=== PATIENT | male | born 1945 | race Caucasian/White ===

== ENCOUNTER 2019-12-24 06:05 | Outpatient (REF) | payer MEDICARE, OTHER, SELFPAY ==
[2019-12-24 11:14] LABS: MANUAL DIFF FLAG NO
[2019-12-24 11:25] LABS: Basophils Percent Auto 0.4 % (0-2); Eosinophils Absolute Auto 0.1 X10*3/uL (0.0-0.4); Eosinophils Percent Auto 2.3 % (0-4); Hemoglobin 12.4 g/dl (14.0-18.0); Imm Gran Abs Auto 0.01 X10*3/uL (0.00-0.03); Imm Gran Pct Auto 0.2 % (0.0-0.4); Lymphocytes Absolute Auto 2.1 X10*3/uL (1.2-4.9); Lymphocytes Percent Auto 44.3 % (20-40); Mean Corpuscular HGB Conc 32.6 g/dl (31.0-36.0); Mean Corpuscular Hemoglobin 31.8 pg (27.0-33.0); Mean Corpuscular Volume 97.4 fL (80-98); Mean Platelet Volume 11.3 fL (9.4-12.4); Monocytes Absolute Auto 0.4 X10*3/uL (0.1-1.2); Monocytes Percent Auto 7.4 % (2-11); Neutrophils Absolute Auto 2.1 X10*3/uL (2.0-8.3); Neutrophils Percent Auto 45.4 % (45-73); Platelet Count 236 X10*3/uL (160-400); Red Cell Distribution Width 12.2 % (11.0-16.0); White Blood Count 4.7 X10*3/uL (4.8-10.8)
[2019-12-24 11:37] LABS: Estimated Average Glucose 108 mg/dL; Hemoglobin A1c % 5.4 %
[2019-12-24 11:56] LABS: Anion Gap 11 (12-20); Blood Urea Nitrogen 16 mg/dL (9-16); Calcium 8.8 mg/dL (8.4-10.2); Carbon Dioxide 28 mmol/L (22-29); Chloride 105 mmol/L (96-108); Cholesterol 129 mg/dL; Estimated Glomerular Filt Rate > 60; Glucose Fasting 95 mg/dL (60-99); HDL Cholesterol 40 mg/dL; LDL Cholesterol Calculated 80 mg/dl; Potassium 4.3 mmol/l (3.3-5.1); Sodium 140 mmol/L (135-145); Triglycerides 47 mg/dL
[2019-12-24 12:18] LABS: TSH reflex Free T4 3.58 mIU/mL (0.32-4.0)
== END 2019-12-24 06:06 | disposition home or self-care (01) ==
LOC: HO.HMGCLDS 06:05
PROVIDERS: PCP Internal Medicine; Visit Provider Internal Medicine
DX: E78.9 Disorder of lipoprotein metabolism, unspecified (principal); R73.01 Impaired fasting glucose; G20 Parkinson's disease; I10 Essential (primary) hypertension; K21.9 Gastro-esophageal reflux disease without esophagitis; K59.01 Slow transit constipation; D64.9 Anemia, unspecified
CPT/HCPCS: 36415; 80048; 80061; 83036; 84443; 85025

== ENCOUNTER 2020-01-13 08:15 | Outpatient (REF) | payer MEDICARE, OTHER, SELFPAY ==
--- NOTE | 2020-01-13 08:24 | CT_ITS ---
EXAMINATION: CT SOFT TISSUE NECK WITH CONTRAST CLINICAL INFORMATION: Localized swelling, mass/lump on the neck. COMPARISON: None available. TECHNIQUE: Multidetector helical imaging was performed in the axial plane following the administration of 60 mL of Omnipaque 350 intravenous contrast. Multiple axial reformats and coronal/sagittal reconstructions were created the technologist workstation for review. This CT examination was performed using dose optimization techniques as appropriate, variously including the following: *Automated exposure control. *Adjustment of mA and/or kV according to patient size (this includes techniques or standardized protocols for targeted exams where dose is matched to indication/reason for exam; i.e. extremities or head). *Use of iterative reconstruction technique. DLP: 406 mGy-cm FINDINGS: No significant cutaneous thickening or subcutaneous inflammation. No discrete fluid collection within the deep tissues of the neck. No demonstrated abnormal mass lesion in the region demarcated by the cutaneous marker along the right aspect of the neck. There is slightly asymmetric adipose tissue subjacent to this marker without discrete margins to definitively suggest an underlying lipoma. The premaxillary, retromaxillary, pterygopalatine fossa, orbital apical, parapharyngeal, and prelaryngeal adipose tissue is maintained. There is a 1.1 cm hypoattenuating nodule in the right thyroid lobe. Otherwise, normal appearance of the parotid, submandibular, and thyroid glands. Scattered subcentimeter lymph nodes bilaterally, none of which are pathologically enlarged or abnormally enhancing. Normal mucosal contours of the pharynx and larynx without abnormal enhancement. Normal appearance of the hyoid bone, thyroid cartilage, or cartilaginous trachea. The airways remains widely patent. No radiopaque foreign bodies. The atlantooccipital and atlantoaxial articulations remain well aligned. There is anatomic alignment of the vertebral bodies and posterior elements. No evidence of acute fracture or subluxation of the cervical spine. The vertebral body heights are maintained. Moderate multilevel degenerative spondyloarthropathy of the cervical spine. There is advanced degenerative disc disease from C3-C7. Multilevel facet and uncovertebral joint arthropathy leads osseous encroachment on the neural foramina from C3-C7. No evidence of epidural collection. There is no prevertebral soft tissue swelling. Normal opacification of the cervical arterial and venous structures. The visualized portion of the skull base is without significant abnormalities. Moderate rightward nasal septal deviation. Mild to moderate mucosal thickening of the paranasal sinuses. The mastoid air cells and middle ear cavities are clear. No demonstrated significant periapical odontogenic disease. CT Upper Chest: The visualized lung apices and upper mediastinum are within normal limits. CT/CT soft tissue neck w con IMPRESSION: No demonstrated abnormal mass lesion in the region demarcated by cutaneous marker along the right side of neck. Slight asymmetric prominence of the subcutaneous adipose tissue subjacent to this marker. Nonspecific 1.1 cm hypoattenuating nodule in the right thyroid lobe. No cervical lymphadenopathy. No additional abnormal mass lesion, collection, or abnormal enhancement within the soft tissues of the neck.
[2020-01-13] MEDS: iohexoL 350 MG/ML 100 ML INFUS..BTL 60 ML IV (09:05)
== END 2020-01-13 08:16 | disposition home or self-care (01) ==
LOC: HO.CT 08:15
PROVIDERS: PCP Internal Medicine; Visit Provider Surgery
DX: R22.1 Localized swelling, mass and lump, neck (principal)
CPT/HCPCS: 70491; Q9967

== ENCOUNTER → 2020-01-20 09:05 | Outpatient (BNVA) | payer MEDICARE, OTHER, SELFPAY | PROVIDERS: PCP Internal Medicine; Referring Provider Internal Medicine; Visit Provider Surgery | DX: R22.0 Localized swelling, mass and lump, head (principal) | CPT/HCPCS: 99212 ==

== ENCOUNTER 2020-03-23 09:38 | Outpatient (REF) | payer MEDICARE, OTHER, SELFPAY ==
[2020-03-23 11:05] LABS: Hematocrit 38.9 % (42-52); Hemoglobin 12.8 g/dl (14.0-18.0)
[2020-03-23 11:29] LABS: Alanine Aminotransferase 9 U/L (0-40); Albumin Level 4.2 g/dL (3.5-5.0); Alkaline Phosphatase 69 U/L (39-117); Anion Gap 14 (12-20); Aspartate Amino Transferase 20 U/L (5-37); Bilirubin Direct 0.2 mg/dL (0.0-0.5); Bilirubin Total 0.6 mg/dL (0.0-1.0); Blood Urea Nitrogen 20 mg/dL (9-16); Carbon Dioxide 24 mmol/L (22-29); Chloride 106 mmol/L (96-108); Estimated Glomerular Filt Rate > 60; Glucose Random 89 mg/dL (60-115); Potassium 4.3 mmol/l (3.3-5.1); Sodium 140 mmol/L (135-145); Total Protein 6.7 g/dL (6.5-8.0)
== END 2020-03-23 09:39 | disposition home or self-care (01) ==
LOC: HO.HMGCLDS 09:38
PROVIDERS: PCP Internal Medicine; Visit Provider Internal Medicine
DX: R73.01 Impaired fasting glucose (principal); D64.9 Anemia, unspecified; E78.9 Disorder of lipoprotein metabolism, unspecified; I10 Essential (primary) hypertension
CPT/HCPCS: 36415; 80048; 80076; 85014; 85018

== ENCOUNTER 2020-07-20 09:51 | Outpatient (REF) | payer MEDICARE, OTHER, SELFPAY ==
[2020-07-20 11:19] LABS: MANUAL DIFF FLAG NO
[2020-07-20 11:34] LABS: Basophils Percent Auto 0.5 % (0-2); Eosinophils Absolute Auto 0.1 X10*3/uL (0.0-0.4); Eosinophils Percent Auto 1.3 % (0-4); Hematocrit 38.6 % (42-52); Hemoglobin 12.8 g/dl (14.0-18.0); Imm Gran Abs Auto 0.01 X10*3/uL (0.00-0.03); Imm Gran Pct Auto 0.2 % (0.0-0.4); Lymphocytes Absolute Auto 2.4 X10*3/uL (1.2-4.9); Lymphocytes Percent Auto 39.6 % (20-40); Mean Corpuscular HGB Conc 33.2 g/dl (31.0-36.0); Mean Corpuscular Hemoglobin 31.6 pg (27.0-33.0); Mean Corpuscular Volume 95.3 fL (80-98); Mean Platelet Volume 11.9 fL (9.4-12.4); Monocytes Absolute Auto 0.4 X10*3/uL (0.1-1.2); Monocytes Percent Auto 6.6 % (2-11); Neutrophils Absolute Auto 3.2 X10*3/uL (2.0-8.3); Neutrophils Percent Auto 51.8 % (45-73); Platelet Count 195 X10*3/uL (160-400); Red Blood Count 4.05 X10*6/uL (4.60-5.80); Red Cell Distribution Width 12.4 % (11.0-16.0); White Blood Count 6.1 X10*3/uL (4.8-10.8)
[2020-07-20 11:54] LABS: Alanine Aminotransferase 14 U/L (0-40); Albumin Level 4.3 g/dL (3.5-5.0); Alkaline Phosphatase 77 U/L (39-117); Anion Gap 12 (12-20); Aspartate Amino Transferase 20 U/L (5-37); Bilirubin Total 0.4 mg/dL (0.0-1.0); Blood Urea Nitrogen 18 mg/dL (9-16); Calcium 9.6 mg/dL (8.4-10.2); Carbon Dioxide 24 mmol/L (22-29); Chloride 107 mmol/L (96-108); Estimated Glomerular Filt Rate > 60; Glucose Random 92 mg/dL (60-115); Potassium 4.3 mmol/L (3.3-5.1); Sodium 139 mmol/L (135-145)
== END 2020-07-20 09:52 | disposition home or self-care (01) ==
LOC: HO.HMGCLDS 09:51
PROVIDERS: PCP Internal Medicine; Visit Provider Internal Medicine
DX: D64.9 Anemia, unspecified (principal); E78.9 Disorder of lipoprotein metabolism, unspecified; I10 Essential (primary) hypertension
CPT/HCPCS: 36415; 80053; 85025

== ENCOUNTER 2021-04-10 06:41 | Outpatient (REF) | payer MEDICARE, OTHER, SELFPAY ==
[2021-04-10 11:45] LABS: MANUAL DIFF FLAG NO
[2021-04-10 11:54] LABS: Basophils Percent Auto 0.3 % (0-2); Eosinophils Absolute Auto 0.1 X10*3/uL (0.0-0.4); Eosinophils Percent Auto 1.6 % (0-4); Hematocrit 39.5 % (42.0-52.0); Hemoglobin 12.9 g/dl (14.0-18.0); Imm Gran Abs Auto 0.02 X10*3/uL (0.00-0.03); Imm Gran Pct Auto 0.3 % (0.0-0.4); Lymphocytes Absolute Auto 2.6 X10*3/uL (1.2-4.9); Lymphocytes Percent Auto 41.9 % (20-40); Mean Corpuscular HGB Conc 32.7 g/dl (31.0-36.0); Mean Corpuscular Hemoglobin 31.4 pg (27.0-33.0); Mean Corpuscular Volume 96.1 fL (80.0-98.0); Mean Platelet Volume 11.7 fL (9.4-12.4); Monocytes Absolute Auto 0.4 X10*3/uL (0.1-1.2); Monocytes Percent Auto 6.7 % (2-11); Neutrophils Percent Auto 49.2 % (45-73); Platelet Count 199 X10*3/uL (160-400); Red Blood Count 4.11 X10*6/uL (4.60-5.80); Red Cell Distribution Width 12.6 % (11.0-16.0); White Blood Count 6.1 X10*3/uL (4.8-10.8)
[2021-04-10 11:56] LABS: Estimated Average Glucose 114 mg/dL; Hemoglobin A1c % 5.6 %
[2021-04-10 12:12] LABS: Alanine Aminotransferase 13 U/L (0-40); Albumin Level 4.1 g/dL (3.5-5.0); Alkaline Phosphatase 67 U/L (39-117); Anion Gap 10 (12-20); Aspartate Amino Transferase 21 U/L (5-37); Bilirubin Total 0.5 mg/dL (0.0-1.0); Blood Urea Nitrogen 17 mg/dL (9-16); Calcium 9.5 mg/dL (8.4-10.2); Carbon Dioxide 29 mmol/L (22-29); Chloride 106 mmol/L (96-108); Estimated Glomerular Filt Rate > 60; Glucose Fasting 120 mg/dL (60-99); Potassium 4.2 mmol/L (3.3-5.1); Sodium 141 mmol/L (135-145); Total Protein 6.7 g/dL (6.5-8.0)
== END 2021-04-10 06:42 | disposition home or self-care (01) ==
LOC: HO.HMGCLDS 06:41
PROVIDERS: Visit Provider Internal Medicine
DX: E78.9 Disorder of lipoprotein metabolism, unspecified (principal); R73.01 Impaired fasting glucose; I10 Essential (primary) hypertension
CPT/HCPCS: 36415; 80053; 83036; 85025

== ENCOUNTER → 2021-05-15 15:24 | Outpatient (BNVA) | payer MEDICARE, OTHER, SELFPAY | PROVIDERS: PCP Internal Medicine; Visit Provider Psychiatry & Neurology Neurology | DX: G20 Parkinson's disease (principal); F22 Delusional disorders | CPT/HCPCS: 99212 ==

== ENCOUNTER → 2021-06-27 07:49 | Outpatient (BNVA) | payer MEDICARE, OTHER, SELFPAY | PROVIDERS: PCP Internal Medicine; Visit Provider Psychiatry & Neurology Neurology | DX: G20 Parkinson's disease (principal); F22 Delusional disorders | CPT/HCPCS: 99212 ==

== ENCOUNTER → 2021-10-10 08:49 | Outpatient (BNVA) | payer MEDICARE, OTHER, SELFPAY | PROVIDERS: PCP Internal Medicine; Visit Provider Psychiatry & Neurology Neurology | DX: G20 Parkinson's disease (principal); F22 Delusional disorders; Z79.899 Other long term (current) drug therapy | CPT/HCPCS: 99212 ==

== ENCOUNTER → 2021-11-10 13:49 | Outpatient (BNVA) | payer MEDICARE, OTHER, SELFPAY | PROVIDERS: PCP Internal Medicine; Visit Provider Urology | DX: N52.9 Male erectile dysfunction, unspecified (principal); G20 Parkinson's disease | CPT/HCPCS: 99202 ==

== ENCOUNTER 2021-11-17 06:10 | Outpatient (REF) | payer MEDICARE, OTHER, SELFPAY ==
[2021-11-17 11:27] LABS: Estimated Average Glucose 108 mg/dL; Hemoglobin A1c % 5.4 %
[2021-11-17 11:56] LABS: Alanine Aminotransferase 15 U/L (0-40); Albumin Level 4.3 g/dL (3.5-5.0); Alkaline Phosphatase 73 U/L (39-117); Anion Gap 14 (12-20); Aspartate Amino Transferase 19 U/L (5-37); Bilirubin Total 0.5 mg/dL (0.0-1.0); Blood Urea Nitrogen 14 mg/dL (9-16); Calcium 9.6 mg/dL (8.4-10.2); Carbon Dioxide 27 mmol/L (22-29); Chloride 105 mmol/L (96-108); Estimated Glomerular Filt Rate > 60; Glucose Random 100 mg/dL (60-115); Potassium 4.5 mmol/L (3.3-5.1); Sodium 141 mmol/L (135-145); Total Protein 6.7 g/dL (6.5-8.0)
== END 2021-11-17 06:11 | disposition home or self-care (01) ==
LOC: HO.HMGCLDS 06:10
PROVIDERS: PCP Internal Medicine; Visit Provider Internal Medicine
DX: E78.9 Disorder of lipoprotein metabolism, unspecified (principal); R73.01 Impaired fasting glucose; I10 Essential (primary) hypertension
CPT/HCPCS: 36415; 80053; 83036

== ENCOUNTER 2022-05-22 08:45 | Outpatient (REF) | payer MEDICARE, OTHER, SELFPAY ==
[2022-05-22 11:39] LABS: MANUAL DIFF FLAG NO
[2022-05-22 11:53] LABS: Basophils Percent Auto 0.4 % (0-2); Eosinophils Absolute Auto 0.1 X10*3/uL (0.0-0.4); Hematocrit 37.7 % (42.0-52.0); Hemoglobin 12.5 g/dl (14.0-18.0); Imm Gran Abs Auto 0.01 X10*3/uL (0.00-0.03); Imm Gran Pct Auto 0.1 % (0.0-0.4); Lymphocytes Absolute Auto 2.7 X10*3/uL (1.2-4.9); Lymphocytes Percent Auto 37.4 % (20-40); Mean Corpuscular HGB Conc 33.2 g/dl (31.0-36.0); Mean Corpuscular Hemoglobin 31.6 pg (27.0-33.0); Mean Corpuscular Volume 95.2 fL (80.0-98.0); Mean Platelet Volume 11.7 fL (9.4-12.4); Monocytes Absolute Auto 0.5 X10*3/uL (0.1-1.2); Monocytes Percent Auto 7.1 % (2-11); Neutrophils Absolute Auto 3.9 x10*3/uL (2.0-8.3); Platelet Count 231 X10*3/uL (160-400); Red Blood Count 3.96 X10*6/uL (4.60-5.80); Red Cell Distribution Width 12.7 % (11.0-16.0); White Blood Count 7.2 X10*3/uL (4.8-10.8)
[2022-05-22 12:15] LABS: Estimated Average Glucose 108 mg/dL; Hemoglobin A1c % 5.4 %
[2022-05-22 12:53] LABS: Alanine Aminotransferase 15 U/L (0-40); Albumin Level 4.1 g/dL (3.5-5.0); Alkaline Phosphatase 75 U/L (39-117); Anion Gap 12 (12-20); Aspartate Amino Transferase 17 U/L (5-37); Bilirubin Total 0.5 mg/dL (0.0-1.0); Blood Urea Nitrogen 13 mg/dL (9-16); Calcium 9.5 mg/dL (8.4-10.2); Carbon Dioxide 28 mmol/L (22-29); Chloride 105 mmol/L (96-108); Estimated Glomerular Filt Rate > 60; Glucose Random 89 mg/dL (60-115); Potassium 4.7 mmol/L (3.3-5.1); Sodium 140 mmol/L (135-145); Total Protein 6.5 g/dL (6.5-8.0)
[2022-05-24 13:14] LABS: LDL Cholesterol Direct 74 mg/dL (<100)
== END 2022-05-22 08:46 | disposition home or self-care (01) ==
LOC: HO.HMGCLDS 08:45
PROVIDERS: PCP Internal Medicine; Visit Provider Internal Medicine
DX: E78.9 Disorder of lipoprotein metabolism, unspecified (principal); I10 Essential (primary) hypertension; D64.9 Anemia, unspecified; F22 Delusional disorders; N52.9 Male erectile dysfunction, unspecified; G20 Parkinson's disease; R73.01 Impaired fasting glucose
CPT/HCPCS: 36415; 80053; 83036; 83721; 85025

== ENCOUNTER → 2022-06-25 13:45 | Outpatient (BNVA) | payer MEDICARE, OTHER, SELFPAY | PROVIDERS: PCP Internal Medicine; Visit Provider Psychiatry & Neurology Neurology | DX: G20 Parkinson's disease (principal); F22 Delusional disorders | CPT/HCPCS: 99212 ==

== ENCOUNTER 2022-07-24 15:21 | Outpatient (REF) | payer MEDICARE, OTHER, SELFPAY ==
[2022-07-24 16:28] LABS: Blood Urea Nitrogen 13 mg/dL (9-16); Estimated Glomerular Filt Rate > 60
== END 2022-07-24 15:22 | disposition home or self-care (01) ==
LOC: HO.LAB 15:21
PROVIDERS: Visit Provider Otolaryngology
DX: D33.3 Benign neoplasm of cranial nerves (principal)
CPT/HCPCS: 36415; 82565; 84520

== ENCOUNTER 2022-09-24 08:06 | Outpatient (REF) | payer MEDICARE, OTHER, SELFPAY ==
--- NOTE | ~2022-09-24 | MR_ITS ---
EXAMINATION: MR BRAIN WITHOUT AND WITH CONTRAST CLINICAL INFORMATION: Left-sided hearing loss. Rule out acoustic neuroma. COMPARISON: None. TECHNIQUE: Multiplanar, multisequential imaging was obtained without and with intravenous contrast. Intravenous contrast: Gadavist 10 mL. FINDINGS: No diffusion abnormality is seen. Very mild chronic white matter microangiopathic changes noted. There is huixiptf-ch-zdbepg diffuse parenchymal volume loss and ex vacuo dilatation of the ventricles. No mass effect or midline shift is evident. No extra-axial fluid collections are noted. The brainstem and cerebellum are normal. There is no abnormal parenchymal or leptomeningeal enhancement. The VII and VIII cranial nerve complexes are normal in course and caliber. No signal abnormality is visualized within the inner ear structures on the precontrast axial T1-weighted sequence. Fluid signal is preserved within the cochlea, semicircular canals, and vestibule on the high-resolution axial FIESTA sequence. No cerebellopontine angle lesion is noted. There is no abnormal labyrinthine or intracanalicular enhancement on postcontrast imaging. The craniovertebral junction, marrow signal, and midline structures are normal. The visualized portions of the major intracranial flow voids at the level of the [facility] [place] are preserved. The dural venous sinus flow voids are maintained. The mastoid air cells are well aerated. There is hkza-jb-mqxvyymr mucosal thickening and dependent fluid in the posterior left ethmoid air cells. Small fluid level also visible in the right sphenoid sinus. MR/MR head/brain wo/w con IMPRESSION: 1. No retrocochlear pathology. Fumidavw-va-vwwyml diffuse parenchymal volume loss with ex vacuo dilatation of the ventricles. Mild chronic white matter microangiopathy. No abnormal enhancement. 2. Nonspecific nsel-pa-qgvbfams mucosal thickening and small fluid levels in the posterior left ethmoid air cells and right sphenoid sinus. Correlate for any acute symptomatology.
== END 2022-09-24 08:07 | disposition home or self-care (01) ==
LOC: HO.MRI 08:06
PROVIDERS: PCP Internal Medicine; Visit Provider Otolaryngology
DX: H90.3 Sensorineural hearing loss, bilateral (principal); D33.3 Benign neoplasm of cranial nerves
CPT/HCPCS: 70553; A9585

== ENCOUNTER 2022-11-16 14:20 | Outpatient (AMB) | payer MEDICARE, OTHER, SELFPAY ==
--- NOTE | 2022-11-16 14:43 | A.OFFVIS_ITS ---
Intake Intake Visit Reasons: One year ED Intake Note: Patient presents today for a follow-up on 1 YR ED: Meds- None Allergies to Antibiotic- No Known Allergies Blood Thinner- Aspirin Senior Publications Specialist Required: No Accompanied by: Self / Same As Patient Allergies codeine Allergy (Unknown, Verified 11/16/22 14:43) does not remember it happened when pt was a child HPI HPI Comments History of Present Illness Details Guilherme is a pleasant male. He is a patient of Dr. Anton. He is seen for the following urologic conditions - erectile dysfunction Refill sildenafil Had question regarding etiology of hematospermia Reassurance provided Erectile dysfunction Progressive Has medications Background of Parkinson's He may go ahead since he has adequate physical activity One year follow-up [facility] Medical History Mass of Neck Impaired fasting blood sugar Low hemoglobin Hemorrhoids Constipation by delayed colonic transit Parkinsons disease Chronic GERD Erectile dysfunction Hypertension, essential Lipid disorder Surgical History History of removal of cyst (~1999) History of colonoscopy Family History Father History of heart attack Mother Diabetes mellitus Maternal Grandfather History of lung cancer Maternal Grandmother No problems noted. Paternal Grandfather No problems noted. Paternal Grandmother No problems noted. Maternal Aunt No problems noted. Paternal Aunt No problems noted. Maternal Uncle No problems noted. Paternal Uncle No problems noted. Sister No problems noted. Son No problems noted. Daughter History of thyroid cancer Daughter No problems noted. Social History Housing: House Alcohol intake: former Patient Tobacco Use Status: Former Tobacco user (50 years ago ) e-Cigarette/Vaping Use: Never Used service: No Current occupational status: retired Cognitive needs: No Hearing needs: No Vision needs: Yes Review of Systems Const Denies chills and Denies fever(s) Card Reports no additional complaints and Denies syncope Resp Denies cough GI Denies abdominal pain and Denies heartburn Reports as per HPI and Denies change in libido Neuro Denies syncope Psych Denies change in libido Endo Denies change in libido Physical Exam Const General: cooperative, healthy appearing, comfortable and no acute distress Orientation/consciousness: patient oriented x3 HEENT Face and sinus: Yes normal facial exam Mouth: moist mucous membranes Neck Neck: Yes normal visual inspection, Yes full ROM and Yes trachea midline Chest Chest palpation & inspection: normal inspection of the chest Resp Effort & Inspection: normal respiratory effort, able to speak in complete sentences and no respiratory distress GI Inspection: Yes normal to inspection Back/Spine/Pelvis Cervical Spine: normal cervical lordosis Thoracic/Lumbar Spine: thoracic and lumbar spine normal to inspection Skin General skin exam: no rashes or lesions noted Neuro General: patient oriented x3, gait normal, tone normal and moves all extremities Extrem General: Yes normal to inspection and Yes capillary refill normal Assessment & Plan Assessment & Plan (1) Erectile disorder due to medical condition in male patient: Code(s): N52.1 - Erectile dysfunction due to diseases classified elsewhere (2) Hematospermia: Code(s): R36.1 - Hematospermia Plan 12 month follow-up Medications: New sildenafil administer 60 minutes before intended activity 100 mg PO ONCE 30 days PRN 30 tabs 1RF sexual activity N52.9 - Male erectile dysfunction, unspecified Patient Instructions: Imaging studies, laboratory and physical exam results were discussed and r eviewed in detail. No major barriers to patient understanding were identified. An opportunity to ask questions regarding the treatment plan was provided. All questions were answered. The patient expressed understanding and agreement with the above treatment plan. The patient is aware they should contact our office by phone for worsening of their current condition or the appearance of new urologic symptoms. Compliance is encouraged with any medications and followup testing that is ordered. It is a privilege to participate in the urologic care of your patient. If you have any questions or concerns regarding treatment for the above conditions, or other urologic issues, please do not hesitate to contact me. The office telephone contact is [phone]. This note is constructed using voice recognition software. While every effort has been made to ensure accuracy pre fabricator errors may have been included. Yours sincerely, Dr Collin Taylor MD, [facility] - Urology Providers of Expert, Compassionate Care for the Genitourinary System Coding Level of Care Code Est Pt Level 4 (41198) Diagnoses Erectile disorder due to medical condition in male patient N52.1 Hematospermia R36.1
== END 2022-11-16 15:20 | disposition home or self-care (01) ==
PROVIDERS: PCP Internal Medicine; Visit Provider Urology
DX: R36.1 Hematospermia (principal); N52.1 Erectile dysfunction due to diseases classified elsewhere
CPT/HCPCS: 99213

== ENCOUNTER → 2022-11-16 14:20 | Outpatient (BNVA) | payer MEDICARE, OTHER, SELFPAY | PROVIDERS: Visit Provider Urology | DX: R36.1 Hematospermia (principal); N52.9 Male erectile dysfunction, unspecified; G20 Parkinson's disease | CPT/HCPCS: 99212 ==

== ENCOUNTER 2022-11-20 08:04 | Outpatient (AMB) | payer MEDICARE, OTHER, SELFPAY ==
[2022-11-20 08:12] VITALS: BP 112/66; PULSE 62; O2SAT 97; BMI 28.1
--- NOTE | 2022-11-20 08:12 | MHC.PC.OV ---
Vital Signs 11/20/22 08:12 Height 6 ft Weight 207 lb 6 oz BMI 28.1 BP 112/66 Blood Pressure Location Lt brachial Position Sitting Pulse 62 Pulse Source Pulse Oximeter Pulse Oximetry (%) 97 Oxygen Delivery Method Room Air Intake Visit Reasons: 6 Month follow up after labs Allergies codeine Allergy (Unknown, Verified 11/20/22 08:13) does not remember it happened when pt was a child Medication List - Last Reconciled 11/20/22 by Antonio Anton MD aspirin (Adult Low Dose Aspirin) 81 mg PO DAILY carbidopa-levodopa 25-100 mg 2 tabs PO BID flu vac 2019 [id number](PF) 60 mcg (15 mcg x 4)/0.5 mL mL IM lisinopril 20 mg PO DAILY 90 days minocycline 100 mg PO BID PRN multivitamin (Daily Multi-Vitamin tablet) 1 tab PO DAILY pimavanserin (Nuplazid) 34 mg PO DAILY quetiapine 50 mg PO BEDTIME risperidone 0.5 mg PO TID sildenafil 100 mg PO ONCE PRN 30 days simvastatin 20 mg PO DAILY 90 days Tobacco use date assessed: 11/20/22 Fall risk assessment: No Falls in past year Last assessed Fall Risk: 11/20/22 Dental Screening Dental Screen Date: 11/20/22 Did you have a dental visit in the last 12 months?: Yes Did you have a dental problem in the last 6 months where you did not have access to dental care?: No Was dental information given to patient?: Patient has dentist HPI 6 Month follow up after labs HPI Details Patient is 77-year-old gentleman came in today for his regular follow-up appointment.? Patient is due for labs last set of lab was June of this year He continued to be slightly anemic we will be doing CBC as well Delusional disorder: Patient is seeing psychiatrist Dr. Todd he is stable at this time Parkinson's disease:? Patient is doing well he is seeing Dr Ramirez, taking all his medications Hypertension:? Patient is on lisinopril 20 mg, tolerating medication blood pressure is stable.? Lipid disorder:? Continue simvastatin 20 mg daily no side effects.? Patient's urologist is Dr. Taylor Impaired fasting sugar: I would advise diet-controlled and lose few lb Follow-up 6 months [facility] Medical History Mass of Neck Impaired fasting blood sugar Low hemoglobin Hemorrhoids Constipation by delayed colonic transit Parkinsons disease Chronic GERD Erectile dysfunction Hypertension, essential Lipid disorder Surgical History History of removal of cyst (~1999) History of colonoscopy Family History Father History of heart attack Mother Diabetes mellitus Maternal Grandfather History of lung cancer Maternal Grandmother No problems noted. Paternal Grandfather No problems noted. Paternal Grandmother No problems noted. Maternal Aunt No problems noted. Paternal Aunt No problems noted. Maternal Uncle No problems noted. Paternal Uncle No problems noted. Sister No problems noted. Son No problems noted. Daughter History of thyroid cancer Daughter No problems noted. Social History Housing: House Alcohol intake: former Patient Tobacco Use Status: Former Tobacco user (50 years ago ) e-Cigarette/Vaping Use: Never Used service: No Current occupational status: retired Cognitive needs: No Hearing needs: No Vision needs: Yes Questionnaire Thrive Questionnaire Date Thrive assessed: 05/22/22 AUDIT C Alcohol Use Questionnaire (AUDIT-C) 1. How often do you have a drink containing alcohol?: Never 3. How often do you have six or more drinks on one occasion?: Never Total Score: 0 Score Reviewed/Action Taken: Yes RADHA-7 AMB Questionnaire RADHA-7 Date RADHA - 7 assessed: 05/22/22 Source: Developed by Drs. Nate Burgos, Rosalinda Bay, Junior Acosta and colleagues, with an educational sharron from [employer]. Review of Systems Const Denies chills and Denies fever(s) ENT Denies epistaxis and Denies nasal discharge Card Denies chest pain Resp Denies chest congestion, Denies cough and Denies hemoptysis GI Denies diarrhea and Denies nausea Skin/Breast Denies rash Neuro Reports no additional complaints Psych Reports no additional complaints Endo Reports no additional complaints Physical exam (Primary Care) Vital Signs: Last Vital Signs Pulse 62 11/20/22 08:12 BP 112/66 11/20/22 08:12 Pulse Ox 97 11/20/22 08:12 Oxygen Delivery Method Room Air 11/20/22 08:12 BMI result Body Mass Index 28.1 Tobacco/Smoking Status: Tobacco use Status Tobacco use date assessed 11/20/22 11/20/22 08:14 Patient Tobacco Use Status Former Tobacco user (50 11/20/22 08:14 years ago ) e-Cigarette/Vaping Use Never Used 11/20/22 08:14 Thrive Assessment: Date of Thrive Assessment Date Thrive assessed 05/22/22 11/20/22 08:14 Const General: cooperative, comfortable and no acute distress Orientation/consciousness: patient oriented x3 HENMT Head: Yes normocephalic Eyes General: appearance normal, both eyes and all related structures Neck Neck: Yes supple Resp Effort & Inspection: normal respiratory effort, no cough and no stridor Cardio Rhythm: regular rhythm Heart sounds: S1 normal heart sound present and S2 normal heart sound present Skin General skin exam: turgor normal Neuro General: patient oriented x3, tone normal and moves all extremities Extrem Right lower extremity: no edema Left lower extremity: no edema Assessment and Plan Assessment & Plan (1) Hypertension, essential: Code(s): I10 - Essential (primary) hypertension (2) Lipid disorder: Code(s): E78.9 - Disorder of lipoprotein metabolism, unspecified (3) Parkinsons disease: Code(s): G20 - Parkinson's disease (4) Low hemoglobin: Code(s): D64.9 - Anemia, unspecified (5) Impaired fasting blood sugar: Code(s): R73.01 - Impaired fasting glucose (6) Delusional disorder: Code(s): F22 - Delusional disorders Plan Patient is 77-year-old gentleman came in today for his regular follow-up appointment.? Patient is due for labs last set of lab was June of this year He continued to be slightly anemic we will be doing CBC as well Delusional disorder: Patient is seeing psychiatrist Dr. Todd he is stable at this time Parkinson's disease:? Patient is doing well he is seeing Dr Ramirez, taking all his medications Hypertension:? Patient is on lisinopril 20 mg, tolerating medication blood pressure is stable.? Lipid disorder:? Continue simvastatin 20 mg daily no side effects.? Patient's urologist is Dr. Taylor Impaired fasting sugar: I would advise diet-controlled and lose few lb Follow-up 6 months Orders: Orders Complete Blood Count Auto Diff Today D64.9 - Anemia, unspecified, E78.9 - Disorder of lipoprotein metabolism, unspecified, F22 - Delusional disorders, G20 - Parkinson's disease, I10 - Essential (primary) hypertension, K21.9 - Gastro-esophageal reflux disease without esophagitis, R73.01 - Impaired fasting glucose Comprehensive Met. Panel Today D64.9 - Anemia, unspecified, E78.9 - Disorder of lipoprotein metabolism, unspecified, F22 - Delusional disorders, G20 - Parkinson's disease, I10 - Essential (primary) hypertension, K21.9 - Gastro-esophageal reflux disease without esophagitis, R73.01 - Impaired fasting glucose LDL Cholesterol Direct Today D64.9 - Anemia, unspecified, E78.9 - Disorder of lipoprotein metabolism, unspecified, F22 - Delusional disorders, G20 - Parkinson's disease, I10 - Essential (primary) hypertension, K21.9 - Gastro-esophageal reflux disease without esophagitis, R73.01 - Impaired fasting glucose Coding Level of Care Code Est Pt Level 4 (03883) Diagnoses Hypertension, essential I10 Lipid disorder E78.9 Parkinsons disease G20 Low hemoglobin D64.9 Impaired fasting blood sugar R73.01 Delusional disorder F22
== END 2022-11-20 08:51 | disposition home or self-care (01) ==
PROVIDERS: Visit Provider Internal Medicine
DX: I10 Essential (primary) hypertension (principal); G20 Parkinson's disease; F22 Delusional disorders; E78.9 Disorder of lipoprotein metabolism, unspecified; D64.9 Anemia, unspecified; R73.01 Impaired fasting glucose
CPT/HCPCS: 99214

== ENCOUNTER 2022-11-20 11:32 | Outpatient (REF) | payer MEDICARE, OTHER, SELFPAY ==
[2022-11-20 13:02] LABS: MANUAL DIFF FLAG NO
[2022-11-20 13:11] LABS: Basophils Percent Auto 0.7 % (0-2); Eosinophils Absolute Auto 0.1 X10*3/uL (0.0-0.4); Eosinophils Percent Auto 1.2 % (0-4); Hematocrit 38.8 % (42.0-52.0); Hemoglobin 13.1 g/dl (14.0-18.0); Imm Gran Abs Auto 0.02 X10*3/uL (0.00-0.03); Imm Gran Pct Auto 0.3 % (0.0-0.4); Lymphocytes Absolute Auto 2.6 X10*3/uL (1.2-4.9); Lymphocytes Percent Auto 43.3 % (20-40); Mean Corpuscular HGB Conc 33.8 g/dl (31.0-36.0); Mean Corpuscular Hemoglobin 32.3 pg (27.0-33.0); Mean Corpuscular Volume 95.8 fL (80.0-98.0); Mean Platelet Volume 11.7 fL (9.4-12.4); Monocytes Absolute Auto 0.4 X10*3/uL (0.1-1.2); Monocytes Percent Auto 5.8 % (2-11); Neutrophils Percent Auto 48.7 % (45-73); Platelet Count 230 X10*3/uL (160-400); Red Blood Count 4.05 X10*6/uL (4.60-5.80); Red Cell Distribution Width 12.5 % (11.0-16.0); White Blood Count 6.1 X10*3/uL (4.8-10.8)
[2022-11-20 13:22] LABS: Alanine Aminotransferase < 5 U/L (0-40); Albumin Level 4.3 g/dL (3.5-5.0); Alkaline Phosphatase 70 U/L (39-117); Anion Gap 15 (12-20); Aspartate Amino Transferase 22 U/L (5-37); Bilirubin Total 0.4 mg/dL (0.0-1.0); Blood Urea Nitrogen 11 mg/dL (9-16); Calcium 9.6 mg/dL (8.4-10.2); Carbon Dioxide 23 mmol/L (22-29); Chloride 105 mmol/L (96-108); Estimated Glomerular Filt Rate > 60; Glucose Random 86 mg/dL (60-115); Potassium 3.7 mmol/L (3.3-5.1); Sodium 139 mmol/L (135-145); Total Protein 7.1 g/dL (6.5-8.0)
[2022-11-22 04:57] LABS: LDL Cholesterol Direct 77 mg/dL (<100)
== END 2022-11-20 11:33 | disposition home or self-care (01) ==
LOC: HO.HMGCLDS 11:32
PROVIDERS: PCP Internal Medicine; Visit Provider Internal Medicine
DX: I10 Essential (primary) hypertension (principal); E78.9 Disorder of lipoprotein metabolism, unspecified; K21.9 Gastro-esophageal reflux disease without esophagitis; G20 Parkinson's disease; D64.9 Anemia, unspecified; R73.01 Impaired fasting glucose; F22 Delusional disorders
CPT/HCPCS: 36415; 80053; 83721; 85025

== ENCOUNTER 2022-12-26 13:32 | Outpatient (AMB) | payer MEDICARE, OTHER, SELFPAY ==
--- NOTE | 2022-12-26 13:47 | A.OFFVIS_ITS ---
Intake Vital Signs 12/26/22 13:58 Height 6 ft Weight 209 lb 6 oz BMI 28.4 BP 118/68 Blood Pressure Location Rt brachial Position Sitting Respiration 16 Pulse 61 Pulse Source Pulse Oximeter Pulse Oximetry (%) 98 Oxygen Delivery Method Room Air Intake Visit Reasons: 6 mo f/u-Jvysfpmnyq-atjjeuwlm Intake Note: Pt presents to the office for 5 month follow up of Parkinson's and delusional disorder. He states he's been doing well since his last visit and his decrease in carbidopa/levadopa. Eyelet Punch Operator Required: No Allergies codeine Allergy (Unknown, Verified 12/26/22 14:04) does not remember it happened when pt was a child Medication List - Last Reconciled 12/26/22 by Katrin Mullen MD aspirin (Adult Low Dose Aspirin) 81 mg PO DAILY carbidopa-levodopa 25-100 mg 1 tab PO BID flu vac 2019 [id number](PF) 60 mcg (15 mcg x 4)/0.5 mL mL IM lisinopril 20 mg PO DAILY 90 days minocycline 100 mg PO BID PRN multivitamin (Daily Multi-Vitamin tablet) 1 tab PO DAILY pimavanserin (Nuplazid) 34 mg PO DAILY quetiapine 50 mg PO BEDTIME simvastatin 20 mg PO DAILY 90 days HPI HPI Comments History of Present Illness Details 77-year-old male comes for follow-up of his Parkinsonism and delusional disorder. His neuropsych evaluation - c/w mild cognitive impairment His motor symptoms are well controlled. He exercises regularly. He still dkue music but quetsiapine helps him to sleep better He is on quetiapine 50 mg qhs . He used to have history of drinking alcohol heavily. No alcohol intake since 2016. He sees Dr.Johari Barneylazid 34mg qd and is doing well.He stopped his risperdal . [facility] Medical History (Updated 12/26/22 @ 14:20 by Katrin Mullen MD) Parkinson's disease without dyskinesia or fluctuating manifestations Mass of Neck Impaired fasting blood sugar Low hemoglobin Hemorrhoids Constipation by delayed colonic transit Parkinsons disease Chronic GERD Erectile dysfunction Hypertension, essential Lipid disorder Surgical History History of removal of cyst (~1999) History of colonoscopy Family History Father History of heart attack Mother Diabetes mellitus Maternal Grandfather History of lung cancer Maternal Grandmother No problems noted. Paternal Grandfather No problems noted. Paternal Grandmother No problems noted. Maternal Aunt No problems noted. Paternal Aunt No problems noted. Maternal Uncle No problems noted. Paternal Uncle No problems noted. Sister No problems noted. Son No problems noted. Daughter History of thyroid cancer Daughter No problems noted. Social History Housing: House Alcohol intake: former Patient Tobacco Use Status: Former Tobacco user (50 years ago ) e-Cigarette/Vaping Use: Never Used service: No Current occupational status: retired Cognitive needs: No Hearing needs: No Vision needs: Yes Physical Exam Vital Signs: Last Vital Signs Pulse 61 12/26/22 13:58 Resp 16 12/26/22 13:58 BP 118/68 12/26/22 13:58 Pulse Ox 98 12/26/22 13:58 Oxygen Delivery Method Room Air 12/26/22 13:58 BMI result Body Mass Index 28.4 Const General: cooperative, healthy appearing, comfortable and no acute distress Nutritional Appearance: average body habitus Orientation/consciousness: patient oriented x3 Neuro Other: mild decreased facial expression and blink Mild cog wheel rigidity right UE Good FFM and foot taps Gait stooped , mild decreased arms wing R>L General: patient oriented x3, gait normal, tone normal, moves all extremities, no focal motor deficits and CN's II-XI intact bilaterally Psych Appearance: well kempt Speech and movement: Normal speech and movement present Assessment & Plan Assessment & Plan (1) Parkinson's disease without dyskinesia or fluctuating manifestations: Code(s): G20.A1 - Parkinson's disease without dyskinesia, without mention of fluctuations (2) Delusional disorder: Code(s): F22 - Delusional disorders Plan Continue carbidopa levodopa 25/100 1 tablet bid Quetiapine to 50 mg q.h.s.. Nuplazid 34mg qd F/u Dr Todd Coding Level of Care Code Est Pt Level 4 (16039) Diagnoses Parkinson's disease without dyskinesia or fluctuating manifestations G20.A1 Delusional disorder F22
[2022-12-26 13:58] VITALS: BP 118/68; PULSE 61; RESP 16; O2SAT 98; BMI 28.4
== END 2022-12-26 14:22 | disposition home or self-care (01) ==
PROVIDERS: Visit Provider Psychiatry & Neurology Neurology
DX: G20.A1 Parkinson's disease without dyskinesia, without mention of fluctuations (principal); F22 Delusional disorders
CPT/HCPCS: 99214

== ENCOUNTER → 2022-12-26 13:32 | Outpatient (BNVA) | payer MEDICARE, OTHER, SELFPAY | PROVIDERS: Visit Provider Psychiatry & Neurology Neurology | DX: G20.A1 Parkinson's disease without dyskinesia, without mention of fluctuations (principal); F22 Delusional disorders; Z79.899 Other long term (current) drug therapy | CPT/HCPCS: 99212 ==

== ENCOUNTER 2023-03-01 07:48 | Outpatient (AMB) | payer MEDICARE, OTHER, SELFPAY ==
[2023-03-01 07:58] VITALS: BP 130/70; PULSE 66; O2SAT 98; BMI 28.6
--- NOTE | 2023-03-01 07:58 | MHC.PC.OV ---
Vital Signs 03/01/23 07:58 Height 6 ft Weight 211 lb BMI 28.6 BP 130/70 Blood Pressure Location Lt brachial Position Sitting Pulse 66 Pulse Source Pulse Oximeter Pulse Oximetry (%) 98 Oxygen Delivery Method Room Air Intake Visit Reasons: 3 month fu Allergies codeine Allergy (Unknown, Verified 03/01/23 08:00) does not remember it happened when pt was a child Medication List - Last Reconciled 03/01/23 by Antonio Anton MD aspirin (Adult Low Dose Aspirin) 81 mg PO DAILY carbidopa-levodopa 25-100 mg 1 tab PO BID flu vac 2019 [id number](PF) 60 mcg (15 mcg x 4)/0.5 mL mL IM lisinopril 20 mg PO DAILY 90 days minocycline 100 mg PO BID PRN multivitamin (Daily Multi-Vitamin tablet) 1 tab PO DAILY pimavanserin (Nuplazid) 34 mg PO DAILY quetiapine 50 mg PO BEDTIME simvastatin 20 mg PO DAILY 90 days Tobacco use date assessed: 03/01/23 Fall risk assessment: No Falls in past year Last assessed Fall Risk: 03/01/23 Dental Screening Dental Screen Date: 03/01/23 Did you have a dental visit in the last 12 months?: Yes Did you have a dental problem in the last 6 months where you did not have access to dental care?: Yes Was dental information given to patient?: Patient has dentist HPI 3 month fu HPI Details Patient is a 77-year-old gentleman who suffers from Parkinson's disease and delusional disorder which is stable at the moment Patient is established with Neurology and Psychiatry. Blood pressure is stable patient is on lisinopril 20 mg tolerating medication He is also on statin for lipid control Labs were done end of October I have placed order for a new set of lab to be done before next visit in 3 months fasting. Currently patient is going through stressful situation as her daughter is in the middle of divorce and she has 3 small children. [facility]LY [facility] Medical History Parkinson's disease without dyskinesia or fluctuating manifestations Mass of Neck Impaired fasting blood sugar Low hemoglobin Hemorrhoids Constipation by delayed colonic transit Parkinsons disease Chronic GERD Erectile dysfunction Hypertension, essential Lipid disorder Surgical History History of removal of cyst (~1999) History of colonoscopy Family History Father History of heart attack Mother Diabetes mellitus Maternal Grandfather History of lung cancer Maternal Grandmother No problems noted. Paternal Grandfather No problems noted. Paternal Grandmother No problems noted. Maternal Aunt No problems noted. Paternal Aunt No problems noted. Maternal Uncle No problems noted. Paternal Uncle No problems noted. Sister No problems noted. Son No problems noted. Daughter History of thyroid cancer Daughter No problems noted. Social History Housing: House Alcohol intake: former Patient Tobacco Use Status: Former Tobacco user (50 years ago ) e-Cigarette/Vaping Use: Never Used service: No Current occupational status: retired Cognitive needs: No Hearing needs: No Vision needs: Yes Questionnaire PHQ-9 Over the last 2 weeks, how often have you been bothered by any of the following problems? 1. Little interest or pleasure in doing things: not at all 2. Feeling down, depressed, or hopeless: not at all 3. Trouble falling or staying asleep, or sleeping too much: not at all 4. Feeling tired or having little energy: not at all 5. Poor appetite or overeating: not at all 6. Feeling bad about yourself - or that you are a failure or have let yourself or your family down: not at all 7. Trouble concentrating on things, such as reading the newspaper or watching television: not at all 8. Moving or speaking so slowly that other people could have noticed. Or the opposite - being so fidgety or restless that you have been moving around a lot more than usual: not at all 9. Thoughts that you would be better off or of hurting yourself in some way: not at all Total score: 0 Depression Screening Interpretation: Negative Depression Screening Done: Yes 90845 - PHQ-9 Billing: Yes Source: Developed by Drs. Nate Burgos, Rosalinda Bay, Junior Acosta and colleagues, with an educational sharron from [employer]. Thrive Questionnaire Date Thrive assessed: 03/01/23 I am a: Patient What is your living situation today?: I have a steady place to live Within the past 12 months, did the food you bought not last and you didn't have the money to get more?: Never true Within the past 12 months, did you worry whether your food would run out before you got money to buy more?: Never true Do you have trouble paying for medicines?: No Do you have trouble getting transportation to medical appointments?: No Do you have trouble paying your heating and electricity bill?: No Do you have trouble taking care of your child, family member or friend?: No Do you have trouble with day-to-day activities such as bathing, preparing meals, shopping, managing finances, etc.?: No Are you currently unemployed and looking for a job?: No Please select the resources that you would like help with: None Currently or been in a relationship where the following occur: no concerns reported AUDIT C Alcohol Use Questionnaire (AUDIT-C) 1. How often do you have a drink containing alcohol?: Never Total Score: 0 RADHA-7 AMB Questionnaire RADHA-7 Date RADHA - 7 assessed: 03/01/23 Feeling nervous, anxious, or on edge: 1 = Several days Not being able to stop or control worryin = Several days Worrying too much about different things: 0 = Not at all Trouble relaxin = Not at all Being so restless that it is hard to sit still: 0 = Not at all Becoming easily annoyed or irritable: 0 = Not at all Feeling afraid as if something awful might happen: 0 = Not at all Total RADHA-7 score (0-4 normal; 5-9 mild; 10-14 moderate; 15-21 severe): 2 Source: Developed by Drs. Nate Burgos, Rosalinda Bay, Junior Acosta and colleagues, with an educational sharron from [employer]. RADHA-7 Assessment Billing RADHA-7 Assessment Tool: RADHA-7 Assessment 96069 Review of Systems Const Denies chills and Denies fever(s) ENT Denies epistaxis and Denies nasal discharge Card Denies chest pain Resp Denies chest congestion, Denies cough and Denies hemoptysis GI Denies diarrhea and Denies nausea Skin/Breast Denies rash Neuro Reports no additional complaints Psych Reports no additional complaints Endo Reports no additional complaints Physical exam (Primary Care) Vital Signs: Last Vital Signs Pulse 66 03/01/23 07:58 BP 130/70 03/01/23 07:58 Pulse Ox 98 03/01/23 07:58 Oxygen Delivery Method Room Air 03/01/23 07:58 BMI result Body Mass Index 28.6 Tobacco/Smoking Status: Tobacco use Status Tobacco use date assessed 03/01/23 03/01/23 08:04 Patient Tobacco Use Status Former Tobacco user (50 03/01/23 08:04 years ago ) e-Cigarette/Vaping Use Never Used 03/01/23 08:04 PHQ-9: PHQ-9 Score PHQ-9: Total score 0 03/01/23 08:37 Depression Screening Interpretation: Negative Thrive Assessment: Date of Thrive Assessment Date Thrive assessed 03/01/23 03/01/23 08:04 Currently or been in a relationship where the following occur: no concerns reported Const General: cooperative, comfortable and no acute distress Orientation/consciousness: patient oriented x3 HENMT Head: Yes normocephalic Eyes General: appearance normal, both eyes and all related structures Neck Neck: Yes supple Resp Effort & Inspection: normal respiratory effort, no cough and no stridor Cardio Rhythm: regular rhythm Heart sounds: S1 normal heart sound present and S2 normal heart sound present Skin General skin exam: turgor normal Neuro General: patient oriented x3, tone normal and moves all extremities Extrem Right lower extremity: no edema Left lower extremity: no edema Assessment and Plan Assessment & Plan (1) Hypertension, essential: Code(s): I10 - Essential (primary) hypertension (2) Lipid disorder: Code(s): E78.9 - Disorder of lipoprotein metabolism, unspecified (3) Parkinsons disease: Code(s): G20 - Parkinson's disease Qualifiers: Dyskinesia presence: with dyskinesia Fluctuating manifestations: with fluctuating manifestations Qualified Code(s): G20.B2 - Parkinson's disease with dyskinesia, with fluctuations (4) Delusional disorder: Code(s): F22 - Delusional disorders Plan Patient is a 77-year-old gentleman who suffers from Parkinson's disease and delusional disorder which is stable at the moment Patient is established with Neurology and Psychiatry. Blood pressure is stable patient is on lisinopril 20 mg tolerating medication He is also on statin for lipid control Labs were done end of October I have placed order for a new set of lab to be done before next visit in 3 months fasting. Currently patient is going through stressful situation as her daughter is in the middle of divorce and she has 3 small children. Orders: Orders Comprehensive [place]. Panel Fast Today E78.9 - Disorder of lipoprotein metabolism, unspecified, F22 - Delusional disorders, G20 - Parkinson's disease, I10 - Essential (primary) hypertension Lipid Panel Today E78.9 - Disorder of lipoprotein metabolism, unspecified, F22 - Delusional disorders, G20 - Parkinson's disease, I10 - Essential (primary) hypertension Vitamin B12 Today E78.9 - Disorder of lipoprotein metabolism, unspecified, F22 - Delusional disorders, G20 - Parkinson's disease, I10 - Essential (primary) hypertension Complete Blood Count Auto Diff Today E78.9 - Disorder of lipoprotein metabolism, unspecified, F22 - Delusional disorders, G20 - Parkinson's disease, I10 - Essential (primary) hypertension Ferritin Today E78.9 - Disorder of lipoprotein metabolism, unspecified, F22 - Delusional disorders, G20 - Parkinson's disease, I10 - Essential (primary) hypertension Coding Level of Care Code Est Pt Level 4 (60989) Diagnoses Hypertension, essential I10 Lipid disorder E78.9 Parkinson's disease with dyskinesia and fluctuating manifestations G20.B2 Dyskinesia presence: with dyskinesia Fluctuating manifestations: with fluctuating manifestations Delusional disorder F22 Additional Codes RADHA-7 Assessment Billing - RADHA-7 Assessment Tool: RADHA-7 Assessment [id number] ([id number])
== END 2023-03-01 10:07 | disposition home or self-care (01) ==
PROVIDERS: PCP Internal Medicine; Visit Provider Internal Medicine
DX: I10 Essential (primary) hypertension (principal); E78.9 Disorder of lipoprotein metabolism, unspecified; G20.B2 Parkinson's disease with dyskinesia, with fluctuations; F22 Delusional disorders
CPT/HCPCS: 99214

== ENCOUNTER 2023-05-28 08:09 | Outpatient (AMB) | payer MEDICARE, OTHER, SELFPAY ==
[2023-05-28 08:14] VITALS: BP 118/70; PULSE 72; O2SAT 98; BMI 29.4
--- NOTE | 2023-05-28 08:14 | MHC.PC.OV ---
Vital Signs 05/28/23 08:14 Height 6 ft Weight 217 lb BMI 29.4 BP 118/70 Blood Pressure Location Lt brachial Position Sitting Pulse 72 Pulse Source Pulse Oximeter Pulse Oximetry (%) 98 Oxygen Delivery Method Room Air Intake Visit Reasons: 6 month fu Allergies codeine Allergy (Unknown, Verified 05/28/23 08:17) does not remember it happened when pt was a child Medication List - Last Reconciled 05/28/23 by Antonio Anton MD aspirin (Adult Low Dose Aspirin) 81 mg PO DAILY carbidopa-levodopa 25-100 mg 1 tab PO BID lisinopril 20 mg PO DAILY 90 days minocycline 100 mg PO BID PRN multivitamin (Daily Multi-Vitamin tablet) 1 tab PO DAILY pimavanserin (Nuplazid) 34 mg PO DAILY quetiapine 50 mg PO BEDTIME simvastatin 20 mg PO DAILY 90 days Tobacco use date assessed: 05/28/23 Fall risk assessment: No Falls in past year Last assessed Fall Risk: 05/28/23 Dental Screening Dental Screen Date: 05/28/23 Did you have a dental visit in the last 12 months?: Yes Did you have a dental problem in the last 6 months where you did not have access to dental care?: No Was dental information given to patient?: Patient has dentist HPI 6 month fu HPI Details Patient is a 78-year-old gentleman Came in today for his regular follow-up appointment Patient wears hearing aid, and he has broke a piece of hearing it which is stuck in his left ear Patient would like to see if I can remove it, if not he has made an emergency visit with the ENT specialist for 10:00 today. Foreign body is plastic piece of hearing aid which is visible with otoscope I have removed it successfully without any complications with the help of forceps. Patient tolerated procedure. Parkinson's disease and delusional disorder is stable at the moment Patient is established with Neurology and Psychiatry. Blood pressure is stable patient is on lisinopril 20 mg tolerating medication He is also on statin for lipid control Labs were needed before this visit but patient forgot Reminded him again to do it fasting Follow-up 4M [facility] Medical History Parkinson's disease without dyskinesia or fluctuating manifestations Mass of Neck Impaired fasting blood sugar Low hemoglobin Hemorrhoids Constipation by delayed colonic transit Parkinsons disease Chronic GERD Erectile dysfunction Hypertension, essential Lipid disorder Surgical History History of removal of cyst (~1999) History of colonoscopy Family History Father History of heart attack Mother Diabetes mellitus Maternal Grandfather History of lung cancer Maternal Grandmother No problems noted. Paternal Grandfather No problems noted. Paternal Grandmother No problems noted. Maternal Aunt No problems noted. Paternal Aunt No problems noted. Maternal Uncle No problems noted. Paternal Uncle No problems noted. Sister No problems noted. Son No problems noted. Daughter History of thyroid cancer Daughter No problems noted. Social History Housing: House Alcohol intake: former Patient Tobacco Use Status: Former Tobacco user (50 years ago ) e-Cigarette/Vaping Use: Never Used service: No Current occupational status: retired Cognitive needs: No Hearing needs: No Vision needs: Yes Questionnaire Thrive Questionnaire Date Thrive assessed: 05/28/23 I am a: Patient What is your living situation today?: I have a steady place to live Within the past 12 months, did the food you bought not last and you didn't have the money to get more?: Never true Within the past 12 months, did you worry whether your food would run out before you got money to buy more?: Never true Do you have trouble paying for medicines?: No Do you have trouble getting transportation to medical appointments?: No Do you have trouble paying your heating and electricity bill?: No Do you have trouble taking care of your child, family member or friend?: No Do you have trouble with day-to-day activities such as bathing, preparing meals, shopping, managing finances, etc.?: No Are you currently unemployed and looking for a job?: No Please select the resources that you would like help with: None Currently or been in a relationship where the following occur: no concerns reported THRIVE Score: 0 AUDIT C Alcohol Use Questionnaire (AUDIT-C) 1. How often do you have a drink containing alcohol?: Never 3. How often do you have six or more drinks on one occasion?: Never Total Score: 0 Score Reviewed/Action Taken: Yes RADHA-7 AMB Questionnaire RADHA-7 Date RADHA - 7 assessed: 05/28/23 Feeling nervous, anxious, or on edge: 1 = Several days Not being able to stop or control worryin = Several days Worrying too much about different things: 0 = Not at all Trouble relaxin = Not at all Being so restless that it is hard to sit still: 0 = Not at all Becoming easily annoyed or irritable: 0 = Not at all Feeling afraid as if something awful might happen: 0 = Not at all Total RADHA-7 score (0-4 normal; 5-9 mild; 10-14 moderate; 15-21 severe): 2 Source: Developed by Drs. Nate Burgos, Rosalinda Bay, Junior Acosta and colleagues, with an educational sharron from [employer]. RADHA-7 Assessment Billing RADHA-7 Assessment Tool: RADHA-7 Assessment 97452 Review of Systems Const Denies chills and Denies fever(s) ENT Denies epistaxis and Denies nasal discharge Card Denies chest pain Resp Denies chest congestion, Denies cough and Denies hemoptysis GI Denies diarrhea and Denies nausea Skin/Breast Denies rash Neuro Reports no additional complaints Psych Reports no additional complaints Endo Reports no additional complaints Physical exam (Primary Care) Vital Signs: Last Vital Signs Pulse 72 05/28/23 08:14 BP 118/70 05/28/23 08:14 Pulse Ox 98 05/28/23 08:14 Oxygen Delivery Method Room Air 05/28/23 08:14 BMI result Body Mass Index 29.4 Tobacco/Smoking Status: Tobacco use Status Tobacco use date assessed 05/28/23 05/28/23 08:18 Patient Tobacco Use Status Former Tobacco user (50 05/28/23 08:18 years ago ) e-Cigarette/Vaping Use Never Used 05/28/23 08:18 Thrive Assessment: Date of Thrive Assessment Date Thrive assessed 05/28/23 05/28/23 11:22 Currently or been in a relationship where the following occur: no concerns reported Const General: cooperative, comfortable and no acute distress Orientation/consciousness: patient oriented x3 HENMT Head: Yes normocephalic Eyes General: appearance normal, both eyes and all related structures Neck Neck: Yes supple Resp Effort & Inspection: normal respiratory effort, no cough and no stridor Cardio Rhythm: regular rhythm Heart sounds: S1 normal heart sound present and S2 normal heart sound present Skin General skin exam: turgor normal Neuro General: patient oriented x3, tone normal and moves all extremities Extrem Right lower extremity: no edema Left lower extremity: no edema Office Procedures Foreign Body Removal [id number] body removal, simple 62131 - Foreign body removal, external auditory canal Procedure code (CPT) selection complete Assessment and Plan Assessment & Plan (1) Hypertension, essential: Code(s): I10 - Essential (primary) hypertension (2) Foreign body of ear, left: Code(s): T16.2XXA - Foreign body in left ear, initial encounter Qualifiers: Encounter type: initial encounter Qualified Code(s): T16.2XXA - Foreign body in left ear, initial encounter (3) Lipid disorder: Code(s): E78.9 - Disorder of lipoprotein metabolism, unspecified (4) Parkinsons disease: Code(s): G20 - Parkinson's disease Qualifiers: Dyskinesia presence: with dyskinesia Fluctuating manifestations: with fluctuating manifestations Qualified Code(s): G20.B2 - Parkinson's disease with dyskinesia, with fluctuations (5) Delusional disorder: Code(s): F22 - Delusional disorders Plan Patient is a 78-year-old gentleman Came in today for his regular follow-up appointment Patient wears hearing aid, and he has broke a piece of hearing it which is stuck in his left ear Patient would like to see if I can remove it, if not he has made an emergency visit with the ENT specialist for 10:00 today. Foreign body is plastic piece of hearing aid which is visible with otoscope I have removed it successfully without any complications with the help of forceps. Patient tolerated procedure. Parkinson's disease and delusional disorder is stable at the moment Patient is established with Neurology and Psychiatry. Blood pressure is stable patient is on lisinopril 20 mg tolerating medication He is also on statin for lipid control Labs were needed before this visit but patient forgot Reminded him again to do it fasting Follow-up 4M Coding Level of Care Code Est Pt Level 4 (60749) Diagnoses Hypertension, essential I10 Foreign body of left ear, initial encounter T16.2XXA Encounter type: initial encounter Lipid disorder E78.9 Parkinson's disease with dyskinesia and fluctuating manifestations G20.B2 Dyskinesia presence: with dyskinesia Fluctuating manifestations: with fluctuating manifestations Delusional disorder F22 CPT Codes Details - Foreign body simple: [id number] body removal, simple ([id number]) Additional Codes RADHA-7 Assessment Billing - RADHA-7 Assessment Tool: RADHA-7 Assessment 20754 ([id number])
== END 2023-05-28 09:42 | disposition home or self-care (01) ==
PROVIDERS: PCP Internal Medicine; Visit Provider Internal Medicine
DX: I10 Essential (primary) hypertension (principal); T16.2XXA Foreign body in left ear, initial encounter; F22 Delusional disorders; E78.9 Disorder of lipoprotein metabolism, unspecified; G20.B2 Parkinson's disease with dyskinesia, with fluctuations
CPT/HCPCS: 69200; 99214

== ENCOUNTER 2023-05-29 06:02 | Outpatient (REF) | payer MEDICARE, OTHER, SELFPAY ==
[2023-05-29 10:25] LABS: MANUAL DIFF FLAG NO
[2023-05-29 10:31] LABS: Basophils Percent Auto 0.4 % (0-2); Eosinophils Absolute Auto 0.1 X10*3/uL (0.0-0.4); Eosinophils Percent Auto 1.7 % (0-4); Hematocrit 39.4 % (42.0-52.0); Hemoglobin 13.1 g/dl (14.0-18.0); Imm Gran Abs Auto 0.01 X10*3/uL (0.00-0.03); Imm Gran Pct Auto 0.1 % (0.0-0.4); Lymphocytes Absolute Auto 3.5 X10*3/uL (1.2-4.9); Lymphocytes Percent Auto 49.3 % (20-40); Mean Corpuscular HGB Conc 33.2 g/dl (31.0-36.0); Mean Corpuscular Hemoglobin 32.3 pg (27.0-33.0); Mean Corpuscular Volume 97.3 fL (80.0-98.0); Mean Platelet Volume 11.5 fL (9.4-12.4); Monocytes Absolute Auto 0.4 X10*3/uL (0.1-1.2); Monocytes Percent Auto 6.3 % (2-11); Neutrophils Percent Auto 42.2 % (45-73); Platelet Count 214 X10*3/uL (160-400); Red Blood Count 4.05 X10*6/uL (4.60-5.80); Red Cell Distribution Width 12.9 % (11.0-16.0)
[2023-05-29 11:14] LABS: Alanine Aminotransferase 11 U/L (0-40); Alkaline Phosphatase 65 U/L (39-117); Anion Gap 9 (12-20); Aspartate Amino Transferase 22 U/L (5-37); Bilirubin Total 0.6 mg/dL (0.0-1.0); Blood Urea Nitrogen 14 mg/dL (9-16); Calcium 9.9 mg/dL (8.4-10.2); Carbon Dioxide 29 mmol/L (22-29); Chloride 108 mmol/L (96-108); Cholesterol 131 mg/dL (<200); Estimated Glomerular Filt Rate > 60; Glucose Fasting 93 mg/dL (60-99); HDL Cholesterol 45 mg/dL (>40); LDL Cholesterol Calculated 75 mg/dL (<100); Potassium 4.1 mmol/L (3.3-5.1); Sodium 142 mmol/L (135-145); Total Protein 6.6 g/dL (6.5-8.0); Triglycerides 59 mg/dL (<150)
[2023-05-29 11:18] LABS: Ferritin 70 ng/mL (20-250)
[2023-05-29 12:26] LABS: Vitamin B12 595 pg/mL (200-900)
== END 2023-05-29 06:03 | disposition home or self-care (01) ==
LOC: HO.HMGCLDS 06:02
PROVIDERS: PCP Internal Medicine; Visit Provider Internal Medicine
DX: I10 Essential (primary) hypertension (principal); E78.9 Disorder of lipoprotein metabolism, unspecified; G20.A1 Parkinson's disease without dyskinesia, without mention of fluctuations; F22 Delusional disorders
CPT/HCPCS: 36415; 80053; 80061; 82607; 82728; 85025

== ENCOUNTER 2023-07-31 09:19 | Outpatient (AMB) | payer MEDICARE, OTHER, SELFPAY ==
--- NOTE | 2023-07-31 10:01 | A.OFFPC_ITS ---
Intake Visit Reasons: 8 month fu/[phone] Allergies codeine Allergy (Unknown, Verified 07/31/23 10:03) does not remember it happened when pt was a child Medication List - Last Reconciled 07/31/23 by Antonio Anton MD aspirin (Adult Low Dose Aspirin) 81 mg PO DAILY carbidopa-levodopa 25-100 mg 1 tab PO BID lisinopril 20 mg PO DAILY 90 days minocycline 100 mg PO BID PRN multivitamin (Daily Multi-Vitamin tablet) 1 tab PO DAILY olanzapine 2.5 mg PO BEDTIME pimavanserin (Nuplazid) 34 mg PO DAILY simvastatin 20 mg PO DAILY 90 days Tobacco use date assessed: 07/31/23 Fall risk assessment: No Falls in past year Last assessed Fall Risk: 07/31/23 Dental Screening Dental Screen Date: 07/31/23 Did you have a dental visit in the last 12 months?: Yes Did you have a dental problem in the last 6 months where you did not have access to dental care?: No Was dental information given to patient?: Patient has dentist HPI 8 month fu/[phone] HPI Details Patient is a 78-year-old gentleman Patient has been having flare up of his delusional disorder thinks his is spying on him, he has taken off his home camera, as he felt his is monitoring his every move he was taken to his Psych and his med was changed to Olnazipin 2.5 mg Patient is established with Neurology and Psychiatry. Blood pressure is stable patient is on lisinopril 20 mg tolerating medication He is also on statin for lipid control Labs are needed before next visit [facility] Medical History Parkinson's disease without dyskinesia or fluctuating manifestations Mass of Neck Impaired fasting blood sugar Low hemoglobin Hemorrhoids Constipation by delayed colonic transit Parkinsons disease Chronic GERD Erectile dysfunction Hypertension, essential Lipid disorder Surgical History History of removal of cyst (~1999) History of colonoscopy Family History Father History of heart attack Mother Diabetes mellitus Maternal Grandfather History of lung cancer Maternal Grandmother No problems noted. Paternal Grandfather No problems noted. Paternal Grandmother No problems noted. Maternal Aunt No problems noted. Paternal Aunt No problems noted. Maternal Uncle No problems noted. Paternal Uncle No problems noted. Sister No problems noted. Son No problems noted. Daughter History of thyroid cancer Daughter No problems noted. Social History Housing: House Alcohol intake: former Patient Tobacco Use Status: Former Tobacco user (50 years ago ) e-Cigarette/Vaping Use: Never Used service: No Current occupational status: retired Cognitive needs: No Hearing needs: No Vision needs: Yes Questionnaire Thrive Questionnaire Date Thrive assessed: 05/28/23 AUDIT C Alcohol Use Questionnaire (AUDIT-C) 1. How often do you have a drink containing alcohol?: Never 3. How often do you have six or more drinks on one occasion?: Never Total Score: 0 Score Reviewed/Action Taken: Yes RADHA-7 AMB Questionnaire RADHA-7 Date RADHA - 7 assessed: 05/28/23 Source: Developed by Drs. Nate Burgos, Rosalinda Bay, Junior Acosta and colleagues, with an educational sharron from [employer]. Review of Systems Const Denies chills and Denies fever(s) ENT Denies epistaxis and Denies nasal discharge Card Denies chest pain Resp Denies chest congestion, Denies cough and Denies hemoptysis GI Denies diarrhea and Denies nausea Skin/Breast Denies rash Neuro Reports no additional complaints Psych Reports no additional complaints Endo Reports no additional complaints Physical exam (Primary Care) Tobacco/Smoking Status: Tobacco use Status Tobacco use date assessed 07/31/23 07/31/23 10:04 Patient Tobacco Use Status Former Tobacco user (50 07/31/23 10:04 years ago ) e-Cigarette/Vaping Use Never Used 07/31/23 10:04 Thrive Assessment: Date of Thrive Assessment Date Thrive assessed 05/28/23 07/31/23 10:04 Const General: cooperative, comfortable and no acute distress Orientation/consciousness: patient oriented x3 HENMT Head: Yes normocephalic Eyes General: appearance normal, both eyes and all related structures Neck Neck: Yes supple Resp Effort & Inspection: normal respiratory effort, no cough and no stridor Cardio Rhythm: regular rhythm Heart sounds: S1 normal heart sound present and S2 normal heart sound present Skin General skin exam: turgor normal Neuro General: patient oriented x3, tone normal and moves all extremities Extrem Right lower extremity: no edema Left lower extremity: no edema Telehealth Telehealth Telehealth Platform: [employer] Location of provider rendering services: practice address Location of patient: address on file Patient Identification confirmed using: Name, : Yes Telehealth method: voice only Patient verbally consented to treatment: Yes Patient verbally consented to billing insurance company: Yes Patient informed of any privacy concerns related to visit: Yes Minutes spent on Phone/Video with Pt.: 14 Assessment and Plan Assessment & Plan (1) Hypertension, essential: Code(s): I10 - Essential (primary) hypertension (2) Lipid disorder: Code(s): E78.9 - Disorder of lipoprotein metabolism, unspecified (3) Parkinsons disease: Code(s): G20 - Parkinson's disease Qualifiers: Dyskinesia presence: with dyskinesia Fluctuating manifestations: with fluctuating manifestations Qualified Code(s): G20.B2 - Parkinson's disease with dyskinesia, with fluctuations (4) Delusional disorder: Code(s): F22 - Delusional disorders Plan Patient is a 78-year-old gentleman Patient has been having flare up of his delusional disorder thinks his is spying on him, he has taken off his home camera, as he felt his is monitoring his every move he was taken to his Psych and his med was changed to Olnazipin 2.5 mg Patient is established with Neurology and Psychiatry. Blood pressure is stable patient is on lisinopril 20 mg tolerating medication He is also on statin for lipid control Labs are needed before next visit Orders: Orders Comprehensive [place]. Panel Fast Today E78.9 - Disorder of lipoprotein metabolism, unspecified, I10 - Essential (primary) hypertension Lipid Panel Today E78.9 - Disorder of lipoprotein metabolism, unspecified, I10 - Essential (primary) hypertension Complete Blood Count Auto Diff Today E78.9 - Disorder of lipoprotein metabolism, unspecified, I10 - Essential (primary) hypertension Coding Level of Care Code Tele Est Pt Level 3 (11255) Diagnoses Hypertension, essential I10 Lipid disorder E78.9 Parkinson's disease with dyskinesia and fluctuating manifestations G20.B2 Dyskinesia presence: with dyskinesia Fluctuating manifestations: with fluctuating manifestations Delusional disorder F22
== END 2023-07-31 12:15 | disposition home or self-care (01) ==
LOC: HO.HMGC 09:19
PROVIDERS: PCP Internal Medicine; Visit Provider Internal Medicine
DX: I10 Essential (primary) hypertension (principal); F22 Delusional disorders; E78.9 Disorder of lipoprotein metabolism, unspecified; G20.B2 Parkinson's disease with dyskinesia, with fluctuations
CPT/HCPCS: 99442

== ENCOUNTER 2023-11-06 13:13 | Outpatient (AMB) | payer MEDICARE, OTHER, SELFPAY ==
[2023-11-06 13:18] VITALS: BP 110/64; PULSE 74; O2SAT 97; BMI 29.9
--- NOTE | 2023-11-06 13:18 | MHC.PC.OV ---
Vital Signs 11/06/23 13:18 Height 6 ft Weight 220 lb 4 oz BMI 29.9 BP 110/64 Blood Pressure Location Rt brachial Position Sitting Pulse 74 Pulse Source Pulse Oximeter Pulse Oximetry (%) 97 Oxygen Delivery Method Room Air Intake Visit Reasons: 14 Wk F/u~ Allergies codeine Allergy (Unknown, Verified 11/06/23 13:22) does not remember it happened when pt was a child Medication List - Last Reconciled 11/06/23 by Antonio Anton MD aspirin (Adult Low Dose Aspirin) 81 mg PO DAILY carbidopa-levodopa 25-100 mg 1 tab PO BID lisinopril 20 mg PO DAILY 90 days minocycline 100 mg PO BID PRN multivitamin (Daily Multi-Vitamin tablet) 1 tab PO DAILY olanzapine 2.5 mg PO BEDTIME pimavanserin (Nuplazid) 34 mg PO DAILY simvastatin 20 mg PO DAILY 90 days Tobacco use date assessed: 11/06/23 Fall risk assessment: No Falls in past year Last assessed Fall Risk: 11/06/23 Dental Screening Dental Screen Date: 11/06/23 Did you have a dental visit in the last 12 months?: Yes Did you have a dental problem in the last 6 months where you did not have access to dental care?: No Was dental information given to patient?: Patient has dentist HPI 14 Wk F/u~ HPI Details Patient is a 78-year-old gentleman Patient has been having more delusional symptoms He had appointment with Dr. Todd his psychiatrist recently Second opinion was recommended for his Parkinson's, patient says that he has appointment with the Neurology in February Meanwhile his quetiapine has been stopped and Olnazapine has been increased gradually to 10 mg Blood pressure is stable patient is on lisinopril 20 mg tolerating medication He is also on statin for lipid control He forgot to do labs, I have changed it to nonfasting so he can do it today Patient will return in February for follow-up [facility] Medical History Parkinson's disease without dyskinesia or fluctuating manifestations Mass of Neck Impaired fasting blood sugar Low hemoglobin Hemorrhoids Constipation by delayed colonic transit Parkinsons disease Chronic GERD Erectile dysfunction Hypertension, essential Lipid disorder Surgical History History of removal of cyst (~1999) History of colonoscopy Family History Father History of heart attack Mother Diabetes mellitus Maternal Grandfather History of lung cancer Maternal Grandmother No problems noted. Paternal Grandfather No problems noted. Paternal Grandmother No problems noted. Maternal Aunt No problems noted. Paternal Aunt No problems noted. Maternal Uncle No problems noted. Paternal Uncle No problems noted. Sister No problems noted. Son No problems noted. Daughter History of thyroid cancer Daughter No problems noted. Social History Housing: House Alcohol intake: former Patient Tobacco Use Status: Former Tobacco user (50 years ago ) e-Cigarette/Vaping Use: Never Used service: No Current occupational status: retired Cognitive needs: No Hearing needs: No Vision needs: Yes Questionnaire PHQ-9 Over the last 2 weeks, how often have you been bothered by any of the following problems? 1. Little interest or pleasure in doing things: not at all 2. Feeling down, depressed, or hopeless: not at all 3. Trouble falling or staying asleep, or sleeping too much: not at all 4. Feeling tired or having little energy: not at all 5. Poor appetite or overeating: not at all 6. Feeling bad about yourself - or that you are a failure or have let yourself or your family down: not at all 7. Trouble concentrating on things, such as reading the newspaper or watching television: not at all 8. Moving or speaking so slowly that other people could have noticed. Or the opposite - being so fidgety or restless that you have been moving around a lot more than usual: not at all 9. Thoughts that you would be better off or of hurting yourself in some way: not at all Total score: 0 Depression Screening Interpretation: Negative Depression Screening Done: Yes 60434 - PHQ-9 Billing: Yes Source: Developed by Drs. Nate Burgos, Rosalinda Bay, Junior Acosta and colleagues, with an educational sharron from [employer]. Thrive Questionnaire Date Thrive assessed: 11/06/23 I am a: Patient What is your living situation today?: I have a steady place to live Within the past 12 months, did the food you bought not last and you didn't have the money to get more?: Never true Within the past 12 months, did you worry whether your food would run out before you got money to buy more?: Never true Do you have trouble paying for medicines?: No Do you have trouble getting transportation to medical appointments?: No Do you have trouble paying your heating and electricity bill?: No Do you have trouble taking care of your child, family member or friend?: No Do you have trouble with day-to-day activities such as bathing, preparing meals, shopping, managing finances, etc.?: No Are you currently unemployed and looking for a job?: No Are you interested in more education?: No Please select the resources that you would like help with: None Currently or been in a relationship where the following occur: No concerns reported THRIVE Score: 0 AUDIT C Alcohol Use Questionnaire (AUDIT-C) 1. How often do you have a drink containing alcohol?: Never 3. How often do you have six or more drinks on one occasion?: Never Total Score: 0 Score Reviewed/Action Taken: Yes RADHA-7 AMB Questionnaire RADHA-7 Date RADHA - 7 assessed: 11/06/23 Feeling nervous, anxious, or on edge: 0 = Not at all Not being able to stop or control worryin = Not at all Worrying too much about different things: 0 = Not at all Trouble relaxin = Not at all Being so restless that it is hard to sit still: 0 = Not at all Becoming easily annoyed or irritable: 0 = Not at all Feeling afraid as if something awful might happen: 0 = Not at all Total RADHA-7 score (0-4 normal; 5-9 mild; 10-14 moderate; 15-21 severe): 0 Source: Developed by Drs. Nate Burgos, Rosalinda Bay, Junior Acosta and colleagues, with an educational sharron from [employer]. RADHA-7 Assessment Billing RADHA-7 Assessment Tool: RADHA-7 Assessment 84977 Review of Systems Const Denies chills and Denies fever(s) ENT Denies epistaxis and Denies nasal discharge Card Denies chest pain Resp Denies chest congestion, Denies cough and Denies hemoptysis GI Denies diarrhea and Denies nausea Skin/Breast Denies rash Neuro Reports no additional complaints Psych Reports no additional complaints Endo Reports no additional complaints Physical exam (Primary Care) Vital Signs: Last Vital Signs Pulse 74 11/06/23 13:18 BP 110/64 11/06/23 13:18 Pulse Ox 97 11/06/23 13:18 Oxygen Delivery Method Room Air 11/06/23 13:18 BMI result Body Mass Index 29.9 Tobacco/Smoking Status: Tobacco use Status Tobacco use date assessed 11/06/23 11/06/23 13:22 Patient Tobacco Use Status Former Tobacco user (50 11/06/23 13:20 years ago ) e-Cigarette/Vaping Use Never Used 11/06/23 13:20 PHQ-9: PHQ-9 Score PHQ-9: Total score 0 11/06/23 13:22 Depression Screening Interpretation: Negative Thrive Assessment: Date of Thrive Assessment Date Thrive assessed 11/06/23 11/06/23 13:22 Currently or been in a relationship where the following occur: No concerns reported Const General: cooperative, comfortable and no acute distress Orientation/consciousness: patient oriented x3 HENMT Head: Yes normocephalic Eyes General: appearance normal, both eyes and all related structures Neck Neck: Yes supple Resp Effort & Inspection: normal respiratory effort, no cough and no stridor Cardio Rhythm: regular rhythm Heart sounds: S1 normal heart sound present and S2 normal heart sound present Skin General skin exam: turgor normal Neuro General: patient oriented x3, tone normal and moves all extremities Extrem Right lower extremity: no edema Left lower extremity: no edema Assessment and Plan Assessment & Plan (1) Hypertension, essential: Code(s): I10 - Essential (primary) hypertension (2) Lipid disorder: Code(s): E78.9 - Disorder of lipoprotein metabolism, unspecified (3) Parkinsons disease: Code(s): G20 - Parkinson's disease Qualifiers: Dyskinesia presence: with dyskinesia Fluctuating manifestations: with fluctuating manifestations Qualified Code(s): G20.B2 - Parkinson's disease with dyskinesia, with fluctuations (4) Delusional disorder: Code(s): F22 - Delusional disorders Plan Patient is a 78-year-old gentleman Patient has been having more delusional symptoms He had appointment with Dr. Todd his psychiatrist recently Second opinion was recommended for his Parkinson's, patient says that he has appointment with the Neurology in February Meanwhile his quetiapine has been stopped and Olnazapine has been increased gradually to 10 mg Blood pressure is stable patient is on lisinopril 20 mg tolerating medication He is also on statin for lipid control He forgot to do labs, I have changed it to nonfasting so he can do it today Patient will return in February for follow-up Orders: Orders Complete Blood Count Auto Diff Today E78.9 - Disorder of lipoprotein metabolism, unspecified, F22 - Delusional disorders, G20.B2 - Parkinson's disease with dyskinesia, with fluctuations, I10 - Essential (primary) hypertension Comprehensive Met. Panel Today E78.9 - Disorder of lipoprotein metabolism, unspecified, F22 - Delusional disorders, G20.B2 - Parkinson's disease with dyskinesia, with fluctuations, I10 - Essential (primary) hypertension LDL Cholesterol Direct Today E78.9 - Disorder of lipoprotein metabolism, unspecified, F22 - Delusional disorders, G20.B2 - Parkinson's disease with dyskinesia, with fluctuations, I10 - Essential (primary) hypertension Coding Level of Care Code Est Pt Level 3 (30043) Complex EM visit Add On G2211 Diagnoses Hypertension, essential I10 Lipid disorder E78.9 Parkinson's disease with dyskinesia and fluctuating manifestations G20.B2 Dyskinesia presence: with dyskinesia Fluctuating manifestations: with fluctuating manifestations Delusional disorder F22 Additional Codes RADHA-7 Assessment Billing - RADHA-7 Assessment Tool: RADHA-7 Assessment 98503 ([id number])
== END 2023-11-06 13:48 | disposition home or self-care (01) ==
PROVIDERS: PCP Internal Medicine; Visit Provider Internal Medicine
DX: I10 Essential (primary) hypertension (principal); G20.B2 Parkinson's disease with dyskinesia, with fluctuations; F22 Delusional disorders; E78.9 Disorder of lipoprotein metabolism, unspecified
CPT/HCPCS: 99213; G2211

== ENCOUNTER 2023-11-06 13:50 | Outpatient (REF) | payer MEDICARE, OTHER, SELFPAY ==
[2023-11-06 15:59] LABS: MANUAL DIFF FLAG NO
[2023-11-06 16:05] LABS: Basophils Percent Auto 0.5 % (0-2); Eosinophils Absolute Auto 0.1 X10*3/uL (0.0-0.4); Eosinophils Percent Auto 2.2 % (0-4); Hematocrit 37.5 % (42.0-52.0); Hemoglobin 12.3 g/dl (14.0-18.0); Imm Gran Abs Auto 0.01 X10*3/uL (0.00-0.03); Imm Gran Pct Auto 0.2 % (0.0-0.4); Lymphocytes Absolute Auto 2.8 X10*3/uL (1.2-4.9); Lymphocytes Percent Auto 47.6 % (20-40); Mean Corpuscular HGB Conc 32.8 g/dl (31.0-36.0); Mean Corpuscular Volume 94.5 fL (80.0-98.0); Mean Platelet Volume 11.7 fL (9.4-12.4); Monocytes Absolute Auto 0.6 X10*3/uL (0.1-1.2); Monocytes Percent Auto 9.3 % (2-11); Neutrophils Absolute Auto 2.4 x10*3/uL (2.0-8.3); Neutrophils Percent Auto 40.2 % (45-73); Platelet Count 206 X10*3/uL (160-400); Red Blood Count 3.97 X10*6/uL (4.60-5.80); Red Cell Distribution Width 12.7 % (11.0-16.0); White Blood Count 5.9 X10*3/uL (4.8-10.8)
[2023-11-06 16:19] LABS: Alanine Aminotransferase 9 U/L (0-40); Alkaline Phosphatase 73 U/L (39-117); Anion Gap 8 (12-20); Aspartate Amino Transferase 22 U/L (5-37); Bilirubin Total 0.3 mg/dL (0.0-1.0); Blood Urea Nitrogen 13 mg/dL (9-16); Calcium 9.6 mg/dL (8.4-10.2); Carbon Dioxide 29 mmol/L (22-29); Chloride 107 mmol/L (96-108); Estimated Glomerular Filt Rate > 60; Glucose Random 91 mg/dL (60-115); Potassium 4.3 mmol/L (3.3-5.1); Sodium 140 mmol/L (135-145); Total Protein 6.8 g/dL (6.5-8.0)
[2023-11-08 15:59] LABS: LDL Cholesterol Direct 78 mg/dL (<100)
== END 2023-11-06 13:51 | disposition home or self-care (01) ==
LOC: HO.HMGCLDS 13:50
PROVIDERS: PCP Internal Medicine; Visit Provider Internal Medicine
DX: F22 Delusional disorders (principal); G20.B2 Parkinson's disease with dyskinesia, with fluctuations; I10 Essential (primary) hypertension; E78.9 Disorder of lipoprotein metabolism, unspecified
CPT/HCPCS: 36415; 80053; 83721; 85025

== ENCOUNTER 2023-12-04 11:08 | Outpatient (AMB) | payer MEDICARE, OTHER, SELFPAY ==
--- NOTE | 2023-12-04 11:21 | A.OFFVIS_ITS ---
Intake Visit Reasons: 1y follow up(ED) Intake Note: Patient is Present for Follow Up Urology Medication: Sildenafil Antibiotic Allergies:None Blood Thinners: Aspirin Seamer Operator Required: No Accompanied by: Self / Same As Patient Allergies codeine Allergy (Unknown, Verified 11/06/23 13:22) does not remember it happened when pt was a child HPI Comments Details: Guilherme is a pleasant male. He is a patient of Dr. Anton. He is seen for the following urologic conditions - erectile dysfunction Refill sildenafil Had question regarding etiology of hematospermia Reassurance provided Discussed urinary function in setting of neurologic disease Erectile dysfunction Progressive Has medications Background of Parkinson's He may go ahead since he has adequate physical activity One year follow-up [facility] Medical History Parkinson's disease without dyskinesia or fluctuating manifestations Mass of Neck Impaired fasting blood sugar Low hemoglobin Hemorrhoids Constipation by delayed colonic transit Parkinsons disease Chronic GERD Erectile dysfunction Hypertension, essential Lipid disorder Surgical History History of removal of cyst (~1999) History of colonoscopy Family History Father History of heart attack Mother Diabetes mellitus Maternal Grandfather History of lung cancer Maternal Grandmother No problems noted. Paternal Grandfather No problems noted. Paternal Grandmother No problems noted. Maternal Aunt No problems noted. Paternal Aunt No problems noted. Maternal Uncle No problems noted. Paternal Uncle No problems noted. Sister No problems noted. Son No problems noted. Daughter History of thyroid cancer Daughter No problems noted. Social History Housing: House Alcohol intake: former Patient Tobacco Use Status: Former Tobacco user (50 years ago ) e-Cigarette/Vaping Use: Never Used service: No Current occupational status: retired Cognitive needs: No Hearing needs: No Vision needs: Yes Review of Systems Const Denies chills and Denies fever(s) Card Reports no additional complaints and Denies syncope Resp Denies cough GI Denies abdominal pain and Denies heartburn Reports as per HPI and Denies change in libido Neuro Denies syncope Psych Denies change in libido Endo Denies change in libido Physical Exam Const General: cooperative, healthy appearing, comfortable and no acute distress Orientation/consciousness: patient oriented x3 HEENT Face and sinus: Yes normal facial exam Mouth: moist mucous membranes Neck Neck: Yes normal visual inspection, Yes full ROM and Yes trachea midline Chest Chest palpation & inspection: normal inspection of the chest Resp Effort & Inspection: normal respiratory effort, able to speak in complete sentences and no respiratory distress GI Inspection: Yes normal to inspection Back/Spine/Pelvis Cervical Spine: normal cervical lordosis Thoracic/Lumbar Spine: thoracic and lumbar spine normal to inspection Skin General skin exam: no rashes or lesions noted Neuro General: patient oriented x3, gait normal, tone normal and moves all extremities Extrem General: Yes normal to inspection and Yes capillary refill normal Assessment & Plan Assessment & Plan (1) 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 No major barriers to patient understanding were identified. An opportunity to ask questions regarding the treatment plan was provided. All questions were answered. The patient expressed understanding and agreement with the above treatment plan. The patient is aware they should contact our office by phone for worsening of their current condition or the appearance of new urologic symptoms. Compliance is encouraged with any medications and followup testing that is ordered. It is a privilege to participate in the urologic care of your patient. If you have any questions or concerns regarding treatment for the above conditions, or other urologic issues, please do not hesitate to contact me. The office telephone contact is [phone]. This note is constructed using voice recognition software. While every effort has been made to ensure accuracy lithographic retoucher apprentice errors may have been included. 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
== END 2023-12-04 11:57 | disposition home or self-care (01) ==
PROVIDERS: PCP Internal Medicine; Visit Provider Urology
DX: N52.9 Male erectile dysfunction, unspecified (principal)
CPT/HCPCS: 99214

== ENCOUNTER → 2023-12-04 11:08 | Outpatient (BNVA) | payer MEDICARE, OTHER, SELFPAY | PROVIDERS: PCP Internal Medicine; Visit Provider Urology | DX: G20.A1 Parkinson's disease without dyskinesia, without mention of fluctuations (principal); N52.1 Erectile dysfunction due to diseases classified elsewhere | CPT/HCPCS: 99212 ==

== ENCOUNTER 2024-02-24 09:15 | Outpatient (AMB) | payer MEDICARE, OTHER, SELFPAY ==
[2024-02-24 09:20] VITALS: BP 104/72; BMI 29.9
--- NOTE | 2024-02-24 09:20 | A.OFFVIS_ITS ---
Vital Signs 02/24/24 09:20 Height 6 ft Weight 220 lb 2 oz BMI 29.9 BP 104/72 Blood Pressure Location Rt brachial Position Sitting Intake Visit Reasons: 1Y Intake Note: Patient presents for 1 year follow up Allergies codeine Allergy (Unknown, Verified 02/24/24 09:24) does not remember it happened when pt was a child Medication List - Last Reconciled 02/24/24 by Katrin Mullen MD aspirin (Adult Low Dose Aspirin) 81 mg PO DAILY carbidopa-levodopa 25-100 mg 1 tab PO BID lisinopril 20 mg PO DAILY 90 days minocycline 100 mg PO BID PRN multivitamin (Daily Multi-Vitamin tablet) 1 tab PO DAILY olanzapine 10 mg PO BEDTIME pimavanserin (Nuplazid) 34 mg PO DAILY sildenafil 100 mg PO ONCE PRN 30 days simvastatin 20 mg PO DAILY 90 days HPI Comments Details: 78-year-old male comes for follow-up of his Parkinsonism and delusional disorder. His neuropsych evaluation - c/w mild cognitive impairment His motor symptoms are well controlled. He exercises regularly. He used to have history of drinking alcohol heavily. No alcohol intake since 2016. He sees Nuplazid 34mg qd and is doing well.He stopped his risperdal and quetiapine and is on olanzepine 10mg qhs . [facility] Medical History Parkinson's disease without dyskinesia or fluctuating manifestations Mass of Neck Impaired fasting blood sugar Low hemoglobin Hemorrhoids Constipation by delayed colonic transit Parkinsons disease Chronic GERD Erectile dysfunction Hypertension, essential Lipid disorder Surgical History History of removal of cyst (~1999) History of colonoscopy Family History Father History of heart attack Mother Diabetes mellitus Maternal Grandfather History of lung cancer Maternal Grandmother No problems noted. Paternal Grandfather No problems noted. Paternal Grandmother No problems noted. Maternal Aunt No problems noted. Paternal Aunt No problems noted. Maternal Uncle No problems noted. Paternal Uncle No problems noted. Sister No problems noted. Son No problems noted. Daughter History of thyroid cancer Daughter No problems noted. Social History Housing: House Alcohol intake: former Patient Tobacco Use Status: Former Tobacco user (50 years ago ) e-Cigarette/Vaping Use: Never Used service: No Current occupational status: retired Cognitive needs: No Hearing needs: No Vision needs: Yes Physical Exam Vital Signs: Last Vital Signs BP 104/72 02/24/24 09:20 BMI result Body Mass Index 29.9 Const General: cooperative, healthy appearing, comfortable and no acute distress Nutritional Appearance: average body habitus Orientation/consciousness: patient oriented x3 Neuro Other: mild decreased facial expression and blink Mild cog wheel rigidity right UE Good FFM and foot taps Gait stooped , mild decreased arms wing R>L General: patient oriented x3, gait normal, tone normal, moves all extremities, no focal motor deficits and CN's II-XI intact bilaterally Psych Appearance: well kempt Speech and movement: Normal speech and movement present Assessment & Plan Assessment & Plan (1) Parkinson's disease without dyskinesia or fluctuating manifestations: Code(s): G20.A1 - Parkinson's disease without dyskinesia, without mention of fluctuations Category: Medical (2) Delusional disorder: Code(s): F22 - Delusional disorders Category: Medical Plan Continue carbidopa levodopa 25/100 1 tablet bid Nuplazid 34mg qd F/u Dr Todd Medications: Refilled carbidopa-levodopa 25-100 mg 1 tab PO BID 180 tabs 5RF Coding Level of Care Code Est Pt Level 4 (78428) Diagnoses Parkinson's disease without dyskinesia or fluctuating manifestations G20.A1 Delusional disorder F22
--- OUTSIDE RECORDS SUMMARY | 2024-02-24 09:20 | XMS_ITS ---
Author Organization [facility] Address [address] [place] [address] Care Team Providers Care Basin Operator Name Role Phone Desean EASTON, [facility] Primary Care Provider UnavailNoa Snyder Unavailable [phone] Jonh Ward Unavailable [phone] Allergies Allergen (clinical drug ingredient) Drug/Non Drug Allergy documented on EMR Reaction Allergy Type Onset Date Status codeine Codeine Unknown Drug Allergy Active REASON FOR VISIT PCP - 11/2022 Medications Medication SIG (Take, Route, Frequency, Duration) Notes Start Date End Date Status Simvastatin 20 MG 1 tablet in the even ing Orally Once a day for 30 day(s) Active risperiDONE ER Not-T aking QUEtiapine Fumarate 50 MG Oral for 90 75 mg Active Nuplazid Active Minocycline HCl 100 MG Oral for 90 Active Aspirin Low Dose 81 MG 1 tablet Orally O nce a day for 30 day(s) Active Multi For Him Active Lisinopril 20 MG Oral for 90 A ctive Carbidopa-Levodopa 25-100 MG Oral for 90 Active Social History Tobacco Use: Social History Observation Description Date Details (start date - stop date) Former Smoker 07/13/2014 - NA Tobacco Use/Smoking Question Answer Notes Are you a: former smoker When did you start smoking? 07/13/2014 Additional Findings: Tobacco Non-User Ex-cigaret te smoker Alcohol Screen Question Answer Notes Did you have a drink containing alcohol in the p ast year? No Points 0 Interpretation Negative Tobacco use other than smoking: Question Answer Notes Are you an other tobacco user? 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 ; Tinea unguium B35.1 and Parkinson's disease, unspecified whether dyskinesia present, unspecified whether manifestations fluctuate G20.A1 Assessments Encounter Date Diagnosis (ICD Code) Assessment Notes Treatment Notes Treatment Clinical Notes Section Notes 10/17/2023 Skin disease (ICD-10 - L98.9) 10/17/2023 Pain in left foot (ICD-10 - M79.672) 10/17/2023 Pain in right foot (ICD-10 - M79.671) 10/17/2023 Ingrowing nail (ICD-10 - L60.0) 10/17/2023 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) 10/17/2023 Tinea unguium (ICD-10 - B35.1) 10/17/2023 Parkinson's disease, unspecified whether dyskinesia present, unspecified whether manifestations fluctuate (ICD-10 - G20.A1) Plan Of Treatment Next Appt Details Follow Up: 3 Months, Reason: Provider Name:Noa sylvester, 06/11/2024 09:15:00 AM, [address] [place], [address], Progress Notes * Guilherme CHICAS PDOB: [birth year] (78 yo M)Acc No.[id number]:10/17/2023 Progress Note Patient:?Juan Francisco Guilherme Barraza Provider:Jade Ward DPM :1945???Age:78 Y???Sex:Male Omar e:10/17/2023 Address:[address] [place] [address] [address] , [place], [place] Pcp:Antonio Anton MD Subjective: * Chief Complaints: * ???PCP - 11/2022 * HPI: ???Ingrown toenail:?Nature:?tenderness.?Location:?Great toe, Both feet.?Duration:?several months .?Course:?intermittent.?Misc:?in law to Aleida and Noe Euceda--his D to their S; 6 GC.? * ROS:?General/Constitutional:?Nausea?denies.?Vomiting?denies.?Hunger Thirst?denies.?Loss appetite?denies.?Chills?denies.?Fatigue?denies.?Fever?denies.?Night Sweats?denies.?Unexplained weight loss?denies.?Unexplained weight gain?denies.?HEENTM:?Dentures?denies.?Dizziness?denies.?Glasses/contacts?admits.?Retinopathy?de nies.?Blurred/double vision?denies.?TMJ?denies.?Discharge/drainage?denies.?Implants?denies.?Sore throat?denies.?Dental implants?denies.?Hard of hearing ?denies.?Difficulty chewing/swallowing/speaking?denies.?Nose bleeds?denies.?Sore mouth?denies.?Respiratory:?On Oxygen?denies.?Pneumonia/pleurisy?denies.?Bronchitis?denies.?Emphysema?denies.?C oughing?denies.?Cough blood?denies.?Shortness of breath?denies.?Wheezing?denies.?Cardiovascular:?Pacemaker?denies.?MVP?denies.?WPW?denies.?CHF?denies.?Heart attack?denies.?Septal defect?denies.?Rapid beat?denies.?Chest pain ?denies.?Atrial Fib.?denies.?Murmur/Palpitations?denies.?Gastrointestinal:?Hemorrhoids?denies.?Stomach/Abdominal pain?denies.?Dark blood stool?denies.?Irritable bowel ?denies.?Constipation?denies.?Diarrhea?denies.?Hematology:?Swelling?denies.?Clots?denies.?Varicose Veins?denies.?Bruising?denies.?Bleeding problem?denies.?Genitourinary:?Blood urine?denies.?Frequent/Painfu/urination/bladder control?denies.?Kidney stones?denies.?Infection (UTI)?denies.?Nephropathy?denies.?sex trans dis (STD)?denies.?Prostate?denies.?Musculoskeletal:?Hammertoes?denies.?Bunions?denies.?Back Pain?denies.?Muscle Cramps/ Resting?denies.?Muscle cramps / walking?denies.?Generalized aches and pains?denies.?Weakness?denies.?Integ.:?Mi?denies.?Scars?denies.?Corns/calluses?denies.?Ingrown nails?admits.?Painful nails?admits.?Open Sores?denies.?Rashes?denies.?Neurologic:?Difficulty sleeping?denies.?Brain disorder?denies.?Numbness?denies.?Balance trouble?denies.?Confusion?denies.?Fainting/blackouts?denies.?Tingling?denies.?Tr emors?denies.? * Medical History:? * Surgical History:?Denies Pas t Surgical History * Hospitalization/Major Diagno stic Procedure:?Denies Past Hospitalization * Family History:?Mother: dece ased, diagnosed with Diabetic - NIDDM.?Father: , diagnosed with Family history of arthritis, Unspecified heart disease.?Siblings: foot problems, diagnosed with Other malignant neoplasm of unspecified site.? * Social History:?Tobacco Use:?Tobacco Use/Smoking?Are you a:?former smoker ?When did you start smoking??07/13/2014 ?Additional Findings: Tobacco Non-User?Ex-cigarette smoker ?Tobacco use other than smoking?Are you an other tobacco user??No ???Drugs/Alcohol:?Drugs?Have you used drugs other than those for medical reasons in the past 12 months??No ?Alcohol Screen?Did you have a drink containing alcohol in the past year??No ?Points?0 ?Interpretation?Negative ???Miscellaneous:?Caffeine: yes, 2 cups per day. ?no Children. ?Exercise: yes, walking 1 hour almost Daily. ?Marital status: . 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 * Medications:?TakingNuplazid Aspirin Low Dose 81 MG Tablet Delayed Release 1 tablet Orally Once a dayCarbidopa-Levodopa 25-100 MG Tablet Oral Lisinopril 20 MG Tablet Oral Multi For Him Minocycline HCl 100 MG Capsule Oral Simvastatin 20 MG Tablet 1 tablet in the evening Orally Once a dayQUEtiapine Fumarate 50 MG Tablet Oral , Notes: 75 mgTaking Nuplazid Taking Aspirin Low Dose 81 MG Tablet Delayed Release 1 tablet Orally Once a dayTaking Carbidopa-Levodopa 25-100 MG Tablet Oral Taking Lisinopril 20 MG Tablet Oral Taking Multi For Him Taking Minocycline HCl 100 MG Capsule Oral Taking Simvastatin 20 MG Tablet 1 tablet in the evening Orally Once a dayTaking QUEtiapine Fumarate 50 MG Tablet Oral , Notes: 75 mgNot-Taking/PRNrisperiDONE ER Medication List reviewed and reconciled with the patientNot-Taking/PRN risperiDONE ER Medication List reviewed and reconciled with the patient * Allergies:?Codeineyes[Allerg ies Verified] Objective: * Vitals:?Ht: 6ft, Wt:207, BMI :28.07, Shoe size:11M, BP:113/63 mm Hg. * Examination: ???General Examination: ?GENERAL APPEARANCE:?pleasant, alert, well nourished, well developed, well hydrated, with good attention to hygene/body habitus, and in no acute distress.?ORIENTED:?person,place, and time.?Neurological: ?SENSORY:?neurological exam reveals intact sensorium, pain sensation normal, vibration sensation intact, pinprick sensation is normal in the lower extremities, anesthesia, burning, tingling, B/L.?Vascular: ?DP PULSES:?0/4, B/L.?PT PULSES:?0/4, B/L.?CAPILLARY FILL TIME:?3 secs. per digit. B/L.?SKIN TEMPERTURE GRADIENT OF THE LOWER EXTERMITIES:?normal, B/L.?HAIR GROWTH/TEXTURE/ELASTICITY/TURGOR:?normal, B/L.?PIGMENTATION:?normal, B/L.?EDEMA:? 2/4, pitting, B/L, Feet, Ankle(s), Leg(s).?Dermatologic: ?SKIN FINDINGS:?Skin exam reveals normal texture, elasticity, and tugor. There are no masses. The interspaces are clear.?Orthopedic: ?MUSCLE STRENGTH:?5/5 all groups in a symmetrical fashion , B/L.?Ingrown Nail: ?INSPECTION:? Reveals nail incurvation, pain on palpation, groove hypertrophy, groove ischemia, Bilateral nail borders, TA, T5.?Nails: ?NAILS are:? Elongated, overgrown, dystrophic, lytic, greater than 3mm thick, discolored and friable with crumbly malodorous subungual debris, TA, T5.? 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 Plan: * Treatment: * Procedure Codes:? * Preventive Medicine:? ??Counseling:?Discussion:?-13: Office or other outpatient visit for the evaluation and management of an established patient, which required a medically appropriate history and/or examination and LOW level of DECISION MAKING for: 1 STABLE ACUTE UNCOMPLICATED PROBLEM, 2 OR MORE MINOR PROBLEMS, OR 1 STABLE CHRONIC PROBLEM, THAT POSE(S) A LOW RISK FOR MORBIDITY/MORTALITY. The visit on the day of the encounter encompassed interpreting the data and educating the patient as to the nature of their condition, treatment options available according to their individual PMH, meds, allergies, and overall health/living conditions, as well as any potential risks or complications that may occur from a failure to adhere to, and participate in, the recommended course of therapy. The discussion included a complete verbal, and/or written explanation of the examination results, any x-rays taken, the proposed diagnosis, and outline of the treatment plan. A schedule for future care needs was also explained. The patient verbalized an understanding of the instructions at this time and agreed to be an active participant in their treatment. If the patient should think of any questions or concerns after the visit, I have encouraged the patient to call the office--pt to use abx ointment and consider na prn .? * Follow Up:?3 Months * Images: * Sign off status: Completed true * Provider:?Jonh Ward DPM Date:? 024 Generated for Abbi roblero/Valdo/eTransmitting on:?02/24/2024 09:19 AM EST History and Physical Notes * HPI (History of Present Illness) Category Sub-Category Detail Notes Category Not es Ingrown toenail Duration: several months Nature: tenderness Location: Great toe, Both feet Course: intermittent Misc: in law to Aleida and Hailee Euceda--his D to their S; 6 GC Examination Category Sub-Category Detail Notes Category Not es Ingrown Nail INSPECTION: Reveals nail inc urvation, pain on palpation, groove hypertrophy, groove ischemia, Bilateral nail borders, TA, T5 Neurological SENSORY: neurological exa m reveals intact sensorium, pain sensation normal, vibration sensation intact, pinprick sensation is normal in the lower extremities, anesthesia, burning, tingling, B/L Dermatologic SKIN FINDINGS: Skin exam reveal s normal texture, elasticity, and tugor. There are no masses. The interspaces are clear Orthopedic MUSCLE STRENGTH: 5/5 all groups in a symmetrical fashion , B/L General Examination GENERAL APPEARANCE: pleasant , alert, well nourished, well developed, well hydrated, with good attention to hygene/body habitus, and in no acute distress ORIENTED: person,place, and ti me Vascular DP PULSES (B): 0/4, B/L PT PULSES (B): 0/4, B/L CAPILLARY FILL TIME: 3 secs. per digit. B/L TEMPERTURE GRADIENT (C): normal, B/L TROPHIC CONDITION-TEXTURE/ELASTICITY/TURGOR/HAIR GROWTH (B): normal, B/L EDEMA (C): 2/4, pitting, B/L, F eet, Ankle(s), Leg(s) PIGMENTATION: normal, B/L Nails NAILS are: Elongated, overg rown, dystrophic, lytic, greater than 3mm thick, discolored and friable with crumbly malodorous subungual debris, TA, T5
--- OUTSIDE RECORDS SUMMARY | 2024-02-24 09:20 | XMS_ITS | Patient Health Record ---
Author Organization [facility] Address [address] [place] [address] Care Team Providers Care Retail Security Professional Name Role Phone Desean EASTON, [facility] Primary Care Provider UnavailNoa Snyder Unavailable [phone] Jonh Ward Unavailable [phone] Allergies Allergen (clinical drug ingredient) Drug/Non Drug Allergy documented on EMR Reaction Allergy Type Onset Date Status codeine Codeine Unknown Drug Allergy Active Reason For Referral No Information Medications Medication SIG (Take, Route, Frequency, Duration) Notes Start Date End Date Status Simvastatin 20 MG 1 tablet in the even ing Orally Once a day for 30 day(s) Active QUEtiapine Fumarate 50 MG Oral for 90 75 mg Active risperiDONE ER Not-T aking Nuplazid Active Aspirin Low Dose 81 MG 1 tablet Orally O nce a day for 30 day(s) Active Carbidopa-Levodopa 25-100 MG Oral for 90 Active Lisinopril 20 MG Oral for 90 A ctive Multi For Him Active Minocycline HCl 100 MG Oral for 90 Active Immunizations Vaccine Route Administration Date Status Comme nts COVID-19 Moderna Vaccine Unknown 12/21/2020 Administered 1st 04/21/20 2nd 05/19/20 Influenza Unknown 11/24/2020 Administered Social History Tobacco Use: Social History Observation [...] Are you an other tobacco user? No Problems Problem Type SNOMED Code ICD Code Onset Dates Problem Status W/U Status Risk Notes Problem Atherosclerosis of [place] artery of both lower extremities, with unspecified presence of clinical manifestation (I70.203) Active confirmed Q7(A), Q8(2B), Q9(1B,2C ) Problem Parkinson's disease (disorder) (60702388) Parkinson's disease, unspecified whether dyskinesia present, unspecified whether manifestations fluctuate (G20.A1) Active confirmed Vital Signs Blood pressure diastolic 63 mm Hg 01/22/2024 Height 6ft in 01/22/2024 Blood pressure systolic 113 mm Hg 01/22/2024 Weight 207 lbs 01/22/2024 BMI 28.07 kg/m2 01/22/2024 Procedures Procedure Date Ordered Date Performed Result Body Sit e 69093-UDQOZFF NAIL, 6 OR MORE 01/22/2024 N/A 69355-BRWX SKIN LESIONS, 2 TO 4 01/22/2024 N/A Encounters Encounter Location Date Provider Diagnosis [address] [address] 04/04/2023 Jonh Ward Skin disease L98.9 ; Pain in left foot M79.672 ; Pain in right foot M79.671 ; Ingrowing nail L60.0 ; 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 ; Tinea unguium B35.1 and Parkinson's disease, unspecified whether dyskinesia present, unspecified whether manifestations fluctuate G20.A1 [facility] [address] 07/08/2023 Jonh Ward Skin disease L98.9 ; Pain in left foot M79.672 ; Pain in right foot M79.671 ; Ingrowing nail L60.0 ; 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 ; Tinea unguium B35.1 and Parkinson's disease, unspecified whether dyskinesia present, unspecified whether manifestations fluctuate G20.A1 [address] [address] 10/17/2023 Jonh Ward Skin disease L98.9 ; Pain in left foot M79.672 ; Pain in right foot M79.671 ; Ingrowing nail L60.0 ; 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 ; Tinea unguium B35.1 and Parkinson's disease, unspecified whether dyskinesia present, unspecified whether manifestations fluctuate G20.A1 [facility] [address] [place] [address] 01/22/2024 Noa Crooks Atherosclerosis of [place] artery of both lower extremities, with unspecified presence of clinical manifestation I70.203 ; Tinea unguium B35.1 ; Pain in right toe(s) M79.674 ; Pain in left toe(s) M79.675 and Parkinson's disease, unspecified whether dyskinesia present, unspecified whether manifestations fluctuate G20.A1 Assessments Encounter Date Diagnosis (ICD Code) Assessment Notes Treatment Notes Treatment Clinical Notes Section Notes 04/04/2023 Pain in left foot (ICD-10 - M79.672) 04/04/2023 Skin disease (ICD-10 - L98.9) 07/08/2023 Skin disease (ICD-10 - L98.9) 10/17/2023 Skin disease (ICD-10 - L98.9) 01/22/2024 Atherosclerosis of [place] artery of both lower extremities, with unspecified presence of clinical manifestation (ICD-10 - I70.203) Q7(A), Q8(2B), Q9(1B,2C) 10/17/2023 Pain in left foot (ICD-10 - M79.672) 01/22/2024 Tinea unguium (ICD-10 - B35.1) 07/08/2023 Pain in left foot (ICD-10 - M79.672) 04/04/2023 Pain in right foot (ICD-10 - M79.671) 04/04/2023 Ingrowing nail (ICD-10 - L60.0) 10/17/2023 Pain in right foot (ICD-10 - M79.671) 07/08/2023 Pain in right foot (ICD-10 - M79.671) 01/22/2024 Pain in right toe(s) (ICD-10 - M79.674) 01/22/2024 Pain in left toe(s) (ICD-10 - M79.675) 07/08/2023 Ingrowing nail (ICD-10 - L60.0) 10/17/2023 Ingrowing nail (ICD-10 - L60.0) 04/04/2023 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) 04/04/2023 Tinea unguium (ICD-10 - B35.1) 07/08/2023 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) 10/17/2023 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) 01/22/2024 Parkinson's disease, unspecified whether dyskinesia present, unspecified whether manifestations fluctuate (ICD-10 - G20.A1) 10/17/2023 Tinea unguium (ICD-10 - B35.1) 04/04/2023 Parkinson's disease, unspecified whether dyskinesia present, unspecified whether manifestations fluctuate (ICD-10 - G20.A1) 07/08/2023 Tinea unguium (ICD-10 - B35.1) 07/08/2023 Parkinson's disease, unspecified whether dyskinesia present, unspecified whether manifestations fluctuate (ICD-10 - G20.A1) 10/17/2023 Parkinson's disease, unspecified whether dyskinesia present, unspecified whether manifestations fluctuate (ICD-10 - G20.A1) Plan Of Treatment Pending Test Test Name Order Date [id number] NAIL, 6 OR MORE 01/22/2024 09976-[id number] SKIN LESIONS, 2 TO 4 01/22/20 24 Next Appt Details Provider Name:Noa sylvester, 06/11/2024 09:15:00 AM, [address] [facility], [place], [address], Insurance Providers Payer Name Payer Address Payer Phone Subscriber Number Group Number Insured Name Patient Relationship to Insured Coverage Start Date Coverage End Date Medicare [employer] [address] [place] [address] [phone] [id number] Guilherme Chicas Self - patient is the [facility] [address] [place] [address] [id number] Guilherme Chicas Self - patient is the insured Medical (General) History Medical History History ICD Code Broken bones CAD (Cholesterol) Cataracts High blood pressure Parkinsons disease Warts Surgical History Surgery Date(Month/Year)
--- OUTSIDE RECORDS SUMMARY | 2024-02-24 09:20 | XMS_ITS ---
Author Organization [facility] Address [address] [place] [address] Care Team Providers Care Charity Fundraiser Name Role Phone Desean EASTON, [facility] Primary Care Provider Noa Pereira Unavailable [phone] Allergies Allergen (clinical drug ingredient) Drug/Non Drug Allergy documented on EMR Reaction Allergy Type Onset Date Status codeine Codeine Unknown Drug Allergy Active REASON FOR VISIT At Risk Footcare, Painful Nail(s) aggravated by shoes and causing difficulty standing/walking. Medications Medication SIG (Take, Route, Frequency, Duration) Notes Start Date End Date Status Simvastatin 20 MG 1 tablet in the even ing Orally Once a day for 30 day(s) Active QUEtiapine Fumarate 50 MG Oral for 90 75 mg Active risperiDONE ER Not-T aking Multi For Him Active Minocycline HCl 100 MG Oral for 90 Active Nuplazid Active Aspirin Low Dose 81 MG 1 tablet Orally O nce a day for 30 day(s) Active Carbidopa-Levodopa 25-100 MG Oral for 90 Active Lisinopril 20 MG Oral for 90 A ctive Social History Tobacco Use: Social History Observation [...] W/U Status Risk Notes Problem Atherosclerosis of [place] artery of both lower extremities, with unspecified presence of clinical manifestation (I70.203) Active confirmed Q7(A), Q8(2B), Q9(1B,2C ) Problem Parkinson's disease (disorder) (85421234) Parkinson's disease, unspecified whether dyskinesia present, unspecified whether manifestations fluctuate (G20.A1) Active confirmed Vital Signs Height 6ft in 01/22/2024 Weight 207 lbs 01/22/2024 BMI 28.07 kg/m2 01/22/2024 Blood pressure systolic 113 mm Hg 01/22/20 24 Blood pressure diastolic 63 mm Hg 024 Procedures Procedure Date Ordered Date Performed Result Body Sit e 03619-AQTJWTS NAIL, 6 OR MORE 01/22/2024 N/A 54523-ZBGR SKIN LESIONS, 2 TO 4 01/22/2024 N/A Encounters Encounter Location Date Provider Diagnosis [facility] [address] [place] [address] 01/22/2024 Noa Crooks Atherosclerosis of tatitlek artery of both lower extremities, with unspecified presence of clinical manifestation I70.203 ; Tinea unguium B35.1 ; Pain in right toe(s) M79.674 ; Pain in left toe(s) M79.675 and Parkinson's disease, unspecified whether dyskinesia present, unspecified whether manifestations fluctuate G20.A1 Assessments Encounter Date Diagnosis (ICD Code) Assessment Notes Treatment Notes Treatment Clinical Notes Section Notes 01/22/2024 Atherosclerosis of [place] artery of both lower extremities, with unspecified presence of clinical manifestation (ICD-10 - I70.203) Q7(A), Q8(2B), Q9(1B,2C) 01/22/2024 Tinea unguium (ICD-10 - B35.1) 01/22/2024 Pain in right toe(s) (ICD-10 - M79.674) 01/22/2024 Pain in left toe(s) (ICD-10 - M79.675) 01/22/2024 Parkinson's disease, unspecified whether dyskinesia present, unspecified whether manifestations fluctuate (ICD-10 - G20.A1) Plan Of Treatment Pending Test Test Name Order Date 84054-CFBPRBW NAIL, 6 OR MORE 01/22/2024 56855-NAWH SKIN LESIONS, 2 TO 4 01/22/20 24 Next Appt Details Follow Up: prn, Reason: Provider Name:Noa Channing sylvester, 06/11/2024 09:15:00 AM, [address] [place], [address], Procedure Notes * Category Sub-Category Detail Notes Debride Nail 6-10 Nail debridement Performance o f this nail treatment by a nonprofessional would put this patients foot and overall health at risk. Therefore, debridement to affected nail(s), as described in exam, was performed extensively to reduce/remove overall nail length, girth, thickness, subungual debris, and necrotic tissue, by manual and/or electrical means through the use of a nail nipper and/or dremel-type precision lens grinder apprentice, to a more viable healthy nail plate or bed tissue 6-10 nails in total. Silver nitrate was used for any petechial bleeding as necessary. Definitive antifungal treatment options, both pharmaceutical and surgical, have been reviewed and discussed with the patient. The patient solely prefers the use of intermittent/as needed professional debridement services for their nail condition and understands the need for additional periodic treatments to maintain effectiveness in symptomatic relief - 45694 Keratoma Treatment Parring or Cutting o f Benign Hyperkeratotic Lesion(s) (-56) 2-4 Lesions - The Benign hyperkeratotic lesions, ( 2 ) in total, locations as stated and described in exam, were pared, and/or cut utilizing a sterile 15 blade, tissue nippers, and/or power dremel instrumentation - 76885, Q8 Progress Notes * Guilherme CHICAS JrDOB:[birth year] (78 yo M)Acc No.[id number]:01/22/2024 Progress Note Patient:?Guilhreme CHICAS Provider:?Noa Crooks DPM :1945???Age:78 Y???Sex:Male Omar e:01/22/2024 Address:[address] [place], [place] [id number] Pcp:Antonio Anton MD Subjective: * Chief Complaints: * ???At Risk FootcarePainful N ail(s) aggravated by shoes and causing difficulty standing/walking. * HPI: ???At Risk footcare:?Pt States Last PCP Visit:?Date?11/13/2023 * ROS:?General/Constitutional:?Nausea?denies.?Vomiting?denies.?Hunger Thirst?denies.?Loss appetite?denies.?Chills?denies.?Fatigue?denies.?Fever?denies.?Night Sweats?denies.?Unexplained weight loss?denies.?Unexplained [...] trouble?denies.?Confusion?denies.?Fainting/blackouts?denies.?Tingling?denies.?Tr emors?denies.? * Medical History:? * Surgical History:?No Surgica l History documented. * Hospitalization/Major Diagno stic Procedure:?Denies Past Hospitalization * Family History:?Mother: dece ased, diagnosed with Diabetic - NIDDM.?Father: , diagnosed with Unspecified heart disease, Family history of arthritis.?Siblings: foot problems, diagnosed with Other malignant neoplasm [...] ?Interpretation?Negative ???Miscellaneous:?Caffeine: yes, 2 cups per day. ?Children: no. ?Exercise: yes, walking 1 hour almost Daily. ?Marital status: . ?Occupation: Retired - [id number], 32 years as [employer]. * Medications:?TakingNuplazid Aspirin Low Dose 81 MG Tablet Delayed Release 1 tablet Orally Once a day Carbidopa-Levodopa 25-100 MG Tablet Oral Lisinopril 20 MG Tablet Oral Multi For Him Minocycline HCl 100 MG Capsule Oral Simvastatin 20 MG Tablet 1 tablet in the evening Orally Once a day QUEtiapine Fumarate 50 MG Tablet Oral , Notes to Pharmacist: 75 mgTaking Nuplazid Taking Aspirin Low Dose 81 MG Tablet Delayed Release 1 tablet Orally Once a day Taking Carbidopa-Levodopa 25-100 MG Tablet Oral Taking Lisinopril 20 MG Tablet Oral Taking Multi For Him Taking Minocycline HCl 100 MG Capsule Oral Taking Simvastatin 20 MG Tablet 1 tablet in the evening Orally Once a day Taking QUEtiapine Fumarate 50 MG Tablet Oral , Notes to Pharmacist: 75 mgNot-Taking/PRNrisperiDONE ER Medication List reviewed and reconciled with the patientNot-Taking/PRN risperiDONE ER Medication List reviewed and reconciled with the patient * Allergies:?Codeineyes[Allerg ies Verified] Objective: * Vitals:?Ht: 6ft, Wt:207, BMI : 28.07, Shoe size:11M, BP:113/63mm Hg, Wt-k.89 kg. * Examination: ???General Examination: ?GENERAL APPEARANCE:?Reveals a pleasant, alert, well nourished, well- developed, well hydrated individual, who demonstrates proper attention to hygiene/body habitus, and is in no acute distress, Pt serves as own historian for office visit today.?ORIENTED:?person, place, and time.?Vascular: ?DP PULSES(B):?1/4, B/L.?PT PULSES(B):? 0/4, B/L.?CAPILLARY FILL TIME:? delayed, all digits, B/L.?TROPHIC CONDITION-TEXTURE/ELASTICITY/TURGOR/HAIR GROWTH(B):?decreased,, B/L.?TEMPERTURE GRADIENT(C):? decreased, cool to cool, proximal to distal, B/L.?PIGMENTATION:?hemosiderin deposition B/L.?EDEMA(C):?1/4, pitting, without aching pain, Leg(s), Ankle(s).?CLAUDICATION(C):?denies, B/L.?REST PAIN:?denies, B/L.?PARESTHESIA(C):?absent, B/L.?BURNING(C):?absent, B/L.?Nails: ?NAILS are:?Elongated, overgrown, dystrophic, lytic, greater than 3mm thick, discolored and friable with crumbly malodorous subungual debris, with pain on palpation, 1-5 B/L.?Dermatologic: ?SKIN FINDINGS:?Skin exam reveals Keratotic lesion(s) located at plantar heels B/L.?Orthopedic: ?MUSCLE STRENGTH:?5/5 all groups in a symmetrical fashion, B/L.?Neurological: ?SENSORY:?Neurological exam reveals intact sensorium, pain sensation normal, vibration sensation intact, pinprick sensation is normal in the lower extremities, Pt denies, anesthesia, burning, paresthesia, tingling, B/L.? Assessment: * Assessment: 1.?Atherosclerosis of tatitlek artery of both lower extremities, with unspecified presence of clinical manifestation - I70.203 (Primary)???Notes :Q7(A), Q8(2B), Q9(1B,2C)???2.?Tinea unguium - B35.1???3.?Pain in right toe(s) - M79.674???4.?Pain in left toe(s) - M79.675???5.?Parkinson's disease, unspecified whether dyskinesia present, unspecified whether manifestations fluctuate - G20.A1??? Plan: * Treatment: 2.?Tinea unguium?Procedure: 25340-HNAZOLZ NAIL, 6 OR MORE * Procedures:?Debride Nail 6-10:?Nail debridement?Performance of this nail treatment by a nonprofessional would put this patients foot and overall health at risk. Therefore, debridement to affected nail(s), as described in exam, was performed extensively to reduce/remove overall nail length, girth, thickness, subungual debris, and necrotic tissue, by manual and/or electrical means through the use of a nail nipper and/or dremel-type precision lens grinder apprentice, to a more viable healthy nail plate or bed tissue 6-10 nails in total. Silver nitrate was used for any petechial bleeding as necessary. Definitive antifungal treatment options, both pharmaceutical and surgical, have been reviewed and discussed with the patient. The patient solely prefers the use of intermittent/as needed professional debridement services for their nail condition and understands the need for additional periodic treatments to maintain effectiveness in symptomatic relief - 65624.?Keratoma Treatment:?Parring or Cutting of Benign Hyperkeratotic Lesion(s)?(-56) 2-4 Lesions - The Benign hyperkeratotic lesions, ( 2 ) in total, locations as stated and described in exam, were pared, and/or cut utilizing a sterile 15 blade, tissue nippers, and/or power dremel instrumentation - 17864, Q8.? * Procedure Codes:?23692 DEBRI DE NAIL, 6 OR MORE, Modifiers: XS 95237 TRIM SKIN LESIONS, 2 TO 4, Modifiers: XS , Q8 * Follow Up:?prn * Images: * Sign off status: Completed true * Provider:?Noa Crooks DPM Date:?03/23/2023 Generated for Abbi roblero/Valdo/eTransmitting on:?02/24/2024 09:19 AM EST History and Physical Notes * HPI (History of Present Illness) Category Sub-Category Detail Notes Category Not es At Risk footcare Pt States Last PCP Visit: Date: Examination Category Sub-Category Detail Notes Category Not es Neurological SENSORY: Neurological exa m reveals intact sensorium, pain sensation normal, vibration sensation intact, pinprick sensation is normal in the lower extremities, Pt denies, anesthesia, burning, paresthesia, tingling, B/L Dermatologic SKIN FINDINGS: Skin exam reveal s Keratotic lesion(s) located at plantar heels B/L Orthopedic MUSCLE STRENGTH: 5/5 all groups in a symmetrical fashion, B/L General Examination GENERAL APPEARANCE: Reveals a pleasant, alert, well nourished, well-developed, well hydrated individual, who demonstrates proper attention to hygiene/body habitus, and is in no acute distress, Pt serves as own historian for office visit today ORIENTED: person, place, and t aydee Vascular DP PULSES (B): 1/4, B/L PT PULSES (B): 0/4, B/L CAPILLARY FILL TIME: delayed, all digits , B/L TEMPERTURE GRADIENT (C): decreased, cool to cool, proximal to distal, B/L TROPHIC CONDITION-TEXTURE/ELASTICITY/TURGOR/HAIR GROWTH (B): decreased,, B/L EDEMA (C): 1/4, pitting, withou t aching pain, Leg(s), Ankle(s) CLAUDICATION (C): denies, B/L REST PAIN: denies, B/L PIGMENTATION: hemosiderin depositi on B/L PARESTHESIA (C): absent, B/L BURNING (C): absent, B/L Nails NAILS are: Elongated, overg rown, dystrophic, lytic, greater than 3mm thick, discolored and friable with crumbly malodorous subungual debris, with pain on palpation, 1-5 B/L
--- OUTSIDE RECORDS SUMMARY | 2024-02-24 09:20 | XMS_ITS ---
Author Organization [facility] Address [address] [place] [address] Care Team Providers Care Health Promotion Manager Name Role Phone Desean EASTON, Asma Primary Care Provider UnavailNoa Snyder Unavailable [phone] Jonh Ward Unavailable [phone] Allergies Allergen (clinical drug ingredient) Drug/Non Drug [...] MG Oral for 90 75 mg Active Multi For Him Active Minocycline HCl 100 MG Oral for 90 Active risperiDONE ER Not-T aking Carbidopa-Levodopa 25-100 MG Oral for 90 Active Lisinopril 20 MG Oral for 90 A ctive Nuplazid Active Aspirin Low Dose 81 MG 1 tablet Orally O nce a day for 30 day(s) Active Social History Tobacco Use: Social History [...] user? 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 ; Tinea unguium B35.1 and Parkinson's disease, unspecified whether dyskinesia present, unspecified whether manifestations fluctuate G20.A1 Assessments Encounter Date Diagnosis (ICD Code) Assessment Notes Treatment Notes Treatment Clinical Notes Section Notes 07/08/2023 Skin disease (ICD-10 - L98.9) 07/08/2023 Pain in left foot (ICD-10 - M79.672) 07/08/2023 Pain in right foot (ICD-10 - M79.671) 07/08/2023 Ingrowing nail (ICD-10 - L60.0) 07/08/2023 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) 07/08/2023 Tinea unguium (ICD-10 - B35.1) 07/08/2023 Parkinson's disease, unspecified whether dyskinesia present, unspecified whether manifestations fluctuate (ICD-10 - G20.A1) Plan Of Treatment Next Appt Details Follow Up: 3 Months, Reason: Provider Name:Noa sylvester, 06/11/2024 09:15:00 AM, [address] [place] [address], [id number], Progress Notes * Guilherme CHICAS PDOB: [birth year] (78 yo M)Acc No.[id number]:07/08/2023 Progress Note Patient:MaheshChicas Guilherme Barraza Provider:Jade Ward DPM :1945???Age:78 Y???Sex:Male Omar e:07/08/2023 Address:[address] [place] [address] [address] , [place], [place] Pcp:Antonio Anton MD Subjective: * Chief Complaints: [...] Daily. ?Marital status: . 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 * Medications:?TakingNuplazid Aspirin Low Dose 81 MG [...] feet Course: intermittent Misc: in law to lAeida and Hailee Euceda--his D to their S; [...]
== END 2024-02-24 09:39 | disposition home or self-care (01) ==
PROVIDERS: PCP Internal Medicine; Visit Provider Psychiatry & Neurology Neurology
DX: G20.A1 Parkinson's disease without dyskinesia, without mention of fluctuations (principal); F22 Delusional disorders
CPT/HCPCS: 99214

== ENCOUNTER → 2024-02-24 09:15 | Outpatient (BNVA) | payer MEDICARE, OTHER, SELFPAY | PROVIDERS: PCP Internal Medicine; Visit Provider Psychiatry & Neurology Neurology | DX: G20.A1 Parkinson's disease without dyskinesia, without mention of fluctuations (principal); F22 Delusional disorders | CPT/HCPCS: 99212 ==

== ENCOUNTER 2024-03-11 12:59 | Outpatient (AMB) | payer MEDICARE, OTHER, SELFPAY ==
--- NOTE | 2024-03-11 13:15 | A.OFFPC_ITS ---
Vital Signs 03/11/24 13:16 Height 6 ft Weight 217 lb 8 oz BMI 29.5 BP 110/70 Blood Pressure Location Lt brachial Position Sitting Pulse 68 Pulse Source Pulse Oximeter Pulse Oximetry (%) 98 Oxygen Delivery Method Room Air Intake Visit Reasons: 4 month follow up Allergies codeine Allergy (Unknown, Verified 03/11/24 13:16) does not remember it happened when pt was a child Medication List - Last Reconciled 03/11/24 by Antonio Anton MD aspirin (Adult Low Dose Aspirin) 81 mg PO DAILY carbidopa-levodopa 25-100 mg 1 tab PO BID lisinopril 20 mg PO DAILY 90 days minocycline 100 mg PO BID PRN multivitamin (Daily Multi-Vitamin tablet) 1 tab PO DAILY olanzapine 10 mg PO BEDTIME pimavanserin (Nuplazid) 34 mg PO DAILY sildenafil 100 mg PO ONCE PRN 30 days simvastatin 20 mg PO DAILY 90 days Tobacco use date assessed: 03/11/24 Fall risk assessment: No Falls in past year Last assessed Fall Risk: 03/11/24 Dental Screening Dental Screen Date: 03/11/24 Did you have a dental visit in the last 12 months?: Yes Did you have a dental problem in the last 6 months where you did not have access to dental care?: No Was dental information given to patient?: Patient has dentist HPI 4 month follow up HPI Details - The patient is a 78-year-old male came in for his regular follow-up appointment - Parkinson's disease: Patient diagnose d in 2015; recent concerns about lack of typical symptom progression. Patient has been referred to new provider Dr. Buitrago in [place] by his current neurologist and psychiatrist for re-evaluation - hallucinations: Risperidone was disco ntinued; Quetiapine changed to Olanzapine 10 mg at night. - Essential Hypertension: - Controlled w ith Lisinopril 20 mg daily. - Blood pressure noted as perfect during this visit. - Hyperlipidemia: - Managed with Simvast atin 20 mg. - Last labs conducted in October - Anxiety following a fall on [employer] no injuries sustained but increased emotional distress. - Curling Toes: - Prior care with shubham Ward, current podiatry care pending until May appointment with new pattern grader supervisor, Dr. Crooks. Problem List - Parkinson's Disease - Essential Hypertension - Hyperlipidemia - Anxiety - Curling Toes Patient Instructions - Continue taking Lisinopril 20 mg and S imvastatin 20 mg as previously prescribed. - Attend the appointment with Dr. Chely emmanuel tomorrow for further evaluation of Parkinson's Disease. - Share overall consultation results wit jennifer vera during the next follow-up visit. - No need for additional lab work today; they will be conducted at the visit tomorrow. - Monitor and manage anxiety symptoms; c onsider discussing with your doctor if these continue. - Trim toenails cautiously until podiatr y appointment in May. - Contact pharmacy for medication refill s by using the number on the medicine bottle, if needed. Review of Systems - Neurological: Reports no notable progr ession of Parkinson's symptoms recently. - Musculoskeletal: Denies injuries from recent fall; reports ability to trim toenails to manage curling toes. - Psychological: Reports anxiety followi ng recent fall. - General: No fever no chills - Ear nose throat: No sore throat no hearing difficulty no ear pain - Cardiovascular: No syncope, no chest pain, no palpitations - Gastrointestinal: No nausea vomiting or diarrhea - Endocrine: No polyuria polydipsia no heat intolerance - Genitourinary: No dysuria , no blood in urine Physical Exam - General: No acute distress - HEENT: No acute findings - Neck: Supple - Respiratory system: Able to talk in f ull sentences, no audible wheeze - cardiovascular: S1-S2 regular in rat e and rhythm - Gastrointestinal: No pain - Extremities: No new findings - DISPATCH SUPERVISOR: Alert awake oriented x3 motor se nsory intact , parkinsonian gait, muscle stiffness present - Skin: Normal turgor PFSH Medical History Parkinson's disease without dyskinesia or fluctuating manifestations Mass of Neck Impaired fasting blood sugar Low hemoglobin Hemorrhoids Constipation by delayed colonic transit Parkinsons disease Chronic GERD Erectile dysfunction Hypertension, essential Lipid disorder Surgical History History of removal of cyst (~1999) History of colonoscopy Family History Father History of heart attack Mother Diabetes mellitus Maternal Grandfather History of lung cancer Maternal Grandmother No problems noted. Paternal Grandfather No problems noted. Paternal Grandmother No problems noted. Maternal Aunt No problems noted. Paternal Aunt No problems noted. Maternal Uncle No problems noted. Paternal Uncle No problems noted. Sister No problems noted. Son No problems noted. Daughter History of thyroid cancer Daughter No problems noted. Social History Housing: House Alcohol intake: former Patient Tobacco Use Status: Former Tobacco user (50 years ago ) e-Cigarette/Vaping Use: Never Used service: No Current occupational status: retired Cognitive needs: No Hearing needs: No Vision needs: Yes Questionnaire PHQ-9 Over the last 2 weeks, how often have you been bothered by any of the following problems? 1. Little interest or pleasure in doing things: not at all 2. Feeling down, depressed, or hopeless: not at all 3. Trouble falling or staying asleep, or sleeping too much: not at all 4. Feeling tired or having little energy: not at all 5. Poor appetite or overeating: not at all 6. Feeling bad about yourself - or that you are a failure or have let yourself or your family down: not at all 7. Trouble concentrating on things, such as reading the newspaper or watching television: not at all 8. Moving or speaking so slowly that other people could have noticed. Or the opposite - being so fidgety or restless that you have been moving around a lot more than usual: not at all 9. Thoughts that you would be better off or of hurting yourself in some way: not at all Total score: 0 Depression Screening Interpretation: Negative Depression Screening Done: Yes 39016 - PHQ-9 Billing: Yes Source: Developed by Drs. Nate Burgos, Rosalinda Bay, Junior Acosta and colleagues, with an educational sharron from [employer]. Thrive Questionnaire Date Thrive assessed: 03/11/24 I am a: Patient What is your living situation today?: I have a steady place to live Within the past 12 months, did the food you bought not last and you didn't have the money to get more?: Never true Within the past 12 months, did you worry whether your food would run out before you got money to buy more?: Never true Do you have trouble paying for medicines?: No Do you have trouble getting transportation to medical appointments?: No Do you have trouble paying your heating and electricity bill?: No Do you have trouble taking care of your child, family member or friend?: No Do you have trouble with day-to-day activities such as bathing, preparing meals, shopping, managing finances, etc.?: No Are you currently unemployed and looking for a job?: No Are you interested in more education?: No Please select the resources that you would like help with: None Currently or been in a relationship where the following occur: No concerns reported THRIVE Score: 0 AUDIT C Alcohol Use Questionnaire (AUDIT-C) 1. How often do you have a drink containing alcohol?: Never 3. How often do you have six or more drinks on one occasion?: Never Total Score: 0 Score Reviewed/Action Taken: Yes RADHA-7 AMB Questionnaire RADHA-7 Date RADHA - 7 assessed: 03/11/24 Feeling nervous, anxious, or on edge: 0 = Not at all Not being able to stop or control worryin = Not at all Worrying too much about different things: 0 = Not at all Trouble relaxin = Not at all Being so restless that it is hard to sit still: 0 = Not at all Becoming easily annoyed or irritable: 0 = Not at all Feeling afraid as if something awful might happen: 0 = Not at all Total RADHA-7 score (0-4 normal; 5-9 mild; 10-14 moderate; 15-21 severe): 0 Source: Developed by Drs. Nate Burgos, Rosalinda Bay, Junior Acosta and colleagues, with an educational sharron from [employer]. RADHA-7 Assessment Billing RADHA-7 Assessment Tool: RADHA-7 Assessment 81975 Physical exam (Primary Care) Vital Signs: Last Vital Signs Pulse 68 03/11/24 13:16 BP 110/70 03/11/24 13:16 Pulse Ox 98 03/11/24 13:16 Oxygen Delivery Method Room Air 03/11/24 13:16 BMI result Body Mass Index 29.5 Tobacco/Smoking Status: Tobacco use Status Tobacco use date assessed 03/11/24 03/11/24 13:19 Patient Tobacco Use Status Former Tobacco user (50 03/11/24 13:19 years ago ) e-Cigarette/Vaping Use Never Used 03/11/24 13:19 PHQ-9: PHQ-9 Score PHQ-9: Total score 0 03/11/24 13:22 Depression Screening Interpretation: Negative Thrive Assessment: Date of Thrive Assessment Date Thrive assessed 03/11/24 03/11/24 13:22 Currently or been in a relationship where the following occur: No concerns reported Coding Level of Care Code Est Pt Level 3 (36938) Complex EM visit Add On G2211 Diagnoses Hypertension, essential I10 Lipid disorder E78.9 Parkinson's disease with dyskinesia and fluctuating manifestations G20.B2 Dyskinesia presence: with dyskinesia Fluctuating manifestations: with fluctuating manifestations Delusional disorder F22 Additional Codes RADHA-7 Assessment Billing - RADHA-7 Assessment Tool: RADHA-7 Assessment 60078 ([id number]) PHQ-9 - 43033 - PHQ-9 Billing: Yes ([id number]) Assessment & Plan Assessment & Plan (1) Hypertension, essential: Code(s): I10 - Essential (primary) hypertension Category: Medical (2) Lipid disorder: Code(s): E78.9 - Disorder of lipoprotein metabolism, unspecified Category: Medical (3) Parkinsons disease: Code(s): G20 - Parkinson's disease Category: Medical Qualifiers: Dyskinesia presence: with dyskinesia Fluctuating manifestations: with fluctuating manifestations Qualified Code(s): G20.B2 - Parkinson's disease with dyskinesia, with fluctuations (4) Delusional disorder: Code(s): F22 - Delusional disorders Category: Medical Plan - The patient is a 78-year-old male came in for his regular follow-up appointment - Parkinson's disease: Patient diagnosed in 2016; recent concerns about lack of typical symptom progression. Patient has been referred to new provider Dr. Buitrago in [place] by his current neurologist and psychiatrist for re-evaluation - hallucinations: Risperidone was discontinued; Quetiapine changed to Olanzapine 10 mg at night. - Essential Hypertension: - Controlled with Lisinopril 20 mg daily. - Blood pressure noted as perfect during this visit. - Hyperlipidemia: - Managed with Simvastatin 20 mg. - Last labs conducted in October - Anxiety following a fall on ; no injuries sustained but increased emotional distress. - Curling Toes: - Prior care with retired Dr. Ward, current podiatry care pending until May appointment with new pattern grader supervisor, Dr. Crooks. Problem List - Parkinson's Disease - Essential Hypertension - Hyperlipidemia - Anxiety - Curling Toes Patient Instructions - Continue taking Lisinopril 20 mg and Simvastatin 20 mg as previously prescribed. - Attend the appointment with Dr. Buitrago tomorrow for further evaluation of Parkinson's Disease. - Share overall consultation results with me during the next follow-up visit. - No need for additional lab work today; they will be conducted at the visit tomorrow. - Monitor and manage anxiety symptoms; consider discussing with your doctor if these continue. - Trim toenails cautiously until podiatry appointment in May. - Contact pharmacy for medication refills by using the number on the medicine bottle, if needed. Follow-up 3-4 months [place] to medication from this office simvastatin and lisinopril Medications: Refilled simvastatin 20 mg PO DAILY 90 tabs 0RF 90 days lisinopril 20 mg PO DAILY 90 tabs 0RF 90 days I10 - Essential (primary) hypertension
[2024-03-11 13:16] VITALS: BP 110/70; PULSE 68; O2SAT 98; BMI 29.5
== END 2024-03-11 13:46 | disposition home or self-care (01) ==
PROVIDERS: PCP Internal Medicine; Visit Provider Internal Medicine
DX: I10 Essential (primary) hypertension (principal); E78.9 Disorder of lipoprotein metabolism, unspecified; G20.B2 Parkinson's disease with dyskinesia, with fluctuations; F22 Delusional disorders

== ENCOUNTER → 2024-03-11 12:59 | Outpatient (BNVA) | payer MEDICARE, OTHER, SELFPAY | PROVIDERS: PCP Internal Medicine; Visit Provider Internal Medicine | DX: G20.B2 Parkinson's disease with dyskinesia, with fluctuations (principal); I10 Essential (primary) hypertension; R44.3 Hallucinations, unspecified; F41.9 Anxiety disorder, unspecified; E78.9 Disorder of lipoprotein metabolism, unspecified; F22 Delusional disorders | CPT/HCPCS: 96127; 99212 ==

== ENCOUNTER 2024-07-14 08:36 | Outpatient (AMB) | payer MEDICARE, OTHER, SELFPAY ==
--- OUTSIDE RECORDS SUMMARY | 2024-07-14 08:48 | XMS_ITS ---
[facility] Address [address] [place] [address] Care Team Providers Care Cleaning Validation Consultant Name Role Phone Desean EASTON, [facility] Primary [facility] Provider Noa Pereira Unavailable [phone] Allergies Allergen (clinical drug ingredient) Drug/Non Drug [...] Problem Status W/U Status Risk Notes Problem Bilateral atherosclerosis of arteries of lower limbs ([id number] ) Atherosclerosis of [place] artery of both lower extremities, with unspecified presence of clinical manifestation (I70.203) Active confirmed Q7(A), Q8(2B), Q9(1B,2 C) Vital Signs Height 6ft in 01/22/2024 Weight 207 lbs 01/22/2024 BMI 28.07 kg/m2 01/22/2024 Blood pressure systolic 113 mm Hg 01/22/20 24 Blood pressure diastolic 63 mm Hg 024 Procedures Procedure Date Ordered Date Performed Result Body Sit e 40704-FSJVIIY NAIL, 6 OR MORE 01/22/2024 N/A 87046-PDFK SKIN LESIONS, 2 TO 4 01/22/2024 N/A Encounters Encounter Location Date Provider Diagnosis [facility] [address] [place] [address] 01/22/2024 Noa Crooks Atherosclerosis of [place] artery of both lower extremities, with unspecified presence of clinical manifestation I70.203 ; Tinea unguium B35.1 ; Pain in right toe(s) M79.674 ; Pain in left toe(s) M79.675 and Parkinson's disease, unspecified whether dyskinesia present, unspecified whether manifestations fluctuate G20.A1 Assessments Encounter Date Diagnosis (ICD Code) Assessment Notes Treatment Notes Treatment Clinical Notes Section Notes 01/22/2024 Atherosclerosis of [place] artery of both lower extremities, with unspecified presence of clinical manifestation (ICD-10 - I70.203) Q7(A), Q8(2B), Q9(1B,2C) 01/22/2024 Tinea unguium (ICD-10 - B35.1) 01/22/2024 Pain in right toe(s) (ICD-10 - M79.674) 01/22/2024 Pain in left toe(s) (ICD-10 - M79.675) 01/22/2024 Parkinson's disease, unspecified whether dyskinesia present, unspecified whether manifestations fluctuate (ICD-10 - G20.A1) Plan Of Treatment Pending Test Test Name Order Date 88695-WKUAHCJ NAIL, 6 OR MORE 01/22/2024 74623-JKIU SKIN LESIONS, 2 TO 4 01/22/20 24 Next Appt Details Follow Up: prn, Reason: Provider Name:Noa Radhacolten nga, 09/16/2024 09:15:00 AM, [address] [place], [address], Procedure Notes * Category Sub-Category Detail Notes [...] use of a nail nipper and/or dremel-type flat grinder operator, to a more viable healthy nail plate [...] to maintain effectiveness in symptomatic relief - 36357 Keratoma Treatment Parring or Cutting o f Benign Hyperkeratotic Lesion(s) (-56) 2-4 Lesions - The Benign hyperkeratotic lesions, ( 2 ) in total, locations as stated and described in exam, were pared, and/or cut utilizing a sterile 15 blade, tissue nippers, and/or power dremel instrumentation - 86357, Q8 Progress Notes * Guilherme CHICAS JrDOB:[birth year] (78 yo M)Acc No.[id number]:01/22/2024 Progress Note Patient:?Guilherme CHICAS Provider:?Noa Crooks DPM :1945???Age:78 Y???Sex:Male Omar e:01/22/2024 Address:[address] [place], [place] [id number] Pcp:Antonio Anton MD Subjective: * Chief Complaints: [...] Daily. ?Marital status: . 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 * Medications:?TakingNuplazid Aspirin Low Dose 81 MG Tablet Delayed Release 1 tablet Orally Once a day Carbidopa-Levodopa 25-100 MG Tablet Oral Lisinopril 20 MG Tablet Oral Multi For Him Minocycline HCl 100 MG Capsule Oral Simvastatin 20 MG Tablet 1 tablet in the evening Orally Once a day QUEtiapine Fumarate 50 MG Tablet Oral , Notes to Pharmacist: 75 mgVirgil Nuplazid Taking Aspirin Low Dose 81 MG [...] tingling, B/L.? Assessment: * Assessment: 1.?Atherosclerosis of pa[place]sh[place] artery of both lower extremities, with unspecified presence of clinical manifestation - I70.203 (Primary)???Notes :Q7(A), Q8(2B), Q9(1B,2C)???2.?Tinea unguium - B35.1???3.?Pain in right toe(s) - M79.674???4.?Pain in left toe(s) - M79.675???5.?Parkinson's disease, unspecified whether dyskinesia present, unspecified whether manifestations fluctuate - G20.A1??? Plan: * Treatment: 2.?Tinea unguium?Procedure: 77174-XRVXWIM NAIL, 6 OR MORE * Procedures:?Debride Nail [...] use of a nail nipper and/or dremel-type flat grinder operator, to a more viable healthy nail plate [...] to maintain effectiveness in symptomatic relief - 22576.?Keratoma Treatment:?Parring or Cutting of Benign Hyperkeratotic Lesion(s)?(-56) 2-4 Lesions - The Benign hyperkeratotic lesions, ( 2 ) in total, locations as stated and described in exam, were pared, and/or cut utilizing a sterile 15 blade, tissue nippers, and/or power dremel instrumentation - 90041, Q8.? * Procedure Codes:?56293 DEBRI DE NAIL, 6 OR MORE, Modifiers: XS 01705 TRIM SKIN LESIONS, 2 TO 4, Modifiers: XS , Q8 * Follow Up:?prn * Images: * Sign off status: Completed true * Provider:Jory Crooks DPM Date:?03/23/2023 Generated for Abbi roblero/Valdo/eTransmitting on:?07/14/2024 08:48 AM EDT History and Physical Notes * HPI (History [...]
[2024-07-14 08:49] VITALS: BP 102/66; PULSE 60; O2SAT 97; BMI 28.5
--- NOTE | 2024-07-14 08:49 | MHC.PC.OV ---
Vital Signs 07/14/24 08:49 Height 6 ft Weight 210 lb BMI 28.5 BP 102/66 Blood Pressure Location Rt brachial Position Sitting Pulse 60 Pulse Source Pulse Oximeter Pulse Oximetry (%) 97 Oxygen Delivery Method Room Air Intake Visit Reasons: 4 month follow up Newspaper Carriers Supervisor Required: No Accompanied by: Self / Same As Patient Allergies codeine Allergy (Unknown, Verified 03/11/24 13:16) does not remember it happened when pt was a child Medication List - Last Reconciled 07/14/24 by Antonio Anton MD aspirin (Adult Low Dose Aspirin) 81 mg PO DAILY lisinopril 20 mg PO DAILY 90 days minocycline 100 mg PO BID PRN multivitamin (Daily Multi-Vitamin tablet) 1 tab PO DAILY olanzapine 10 mg PO BEDTIME sildenafil 100 mg PO ONCE PRN 30 days simvastatin 20 mg PO DAILY 90 days Tobacco use date assessed: 03/11/24 Fall risk assessment: 1 Fall in past year Last assessed Fall Risk: 07/14/24 Dental Screening Dental Screen Date: 03/11/24 HPI 4 month follow up HPI Details History - The patient is a 79-year-old male presenting with medication evaluation and discussion regarding tremor and hypertension management. - He reports that Dr. Jon discontinued his (carbidopa/levodopa) due to an unclear diagnosis of Parkinson's disease. Multiple doctors, including a specialist at a university in [place], have indicated they see no signs of Parkinson?s disease. The tremor was noted in his left hand but deemed not a Parkinsonian tremor as it occurred during reach out movements, not at rest. - The patient states he has stopped drinking coffee and feels he is slowing down. - Reports a history of delusional disorder, previously treated with olanzapine, but currently not on any medications. - He no longer perceives music played by neighbors as bothersome due to new hearing aids. - Blood pressure readings at home have been low, around 103 systolic, prompting a reduction in antihypertensive medication. - No episodes of dizziness or lightheadedness reported. - Has a history of alcohol use but has abstained from drinking for approximately eight years. - Experiences some difficulty with balance and walking, avoiding stairs and opting for hallway walks within his building. Problem List - Essential Hypertension - Tremor - delusional disorder / stable off meds - Hearing Loss - History of Alcohol Use - risk for fall - muscle stiffness Patient Instructions - Obtain a blood test today. - Take the newly prescribed 10 mg dose of lisinopril for blood pressure. Do not take the previous 20 mg dose. - Consider using a cane when leaving the house to provide additional support and prevent falls. - Schedule a follow-up appointment in three months. - continue f.u with Neuro and Dr Todd Review of Systems - General: No fever no chills - Neurological: No headaches no dizziness - Ear nose throat: No sore throat , no ear pain - Cardiovascular: No syncope, no chest pain, no palpitations - Gastrointestinal: No nausea vomiting or diarrhea - Endocrine: No polyuria polydipsia no heat intolerance - Genitourinary: No dysuria , no blood in urine Physical Exam General: No acute distress HEENT: Hearing aids present Neck: Supple Respiratory system: Lungs are clear, able to talk in full sentences, no audible wheeze Cardiovascular: S1-S2 regular in rate and rhythm, heart is fine Gastrointestinal: No nausea, vomiting, or constipation Extremities: No swelling of ankles MACHINE SOLE LEVELER: Alert awake oriented x3, speak slow, muscle stiffness noted, tremor in left hand noted Skin: Normal turgor PFSH Medical History Parkinson's disease without dyskinesia or fluctuating manifestations Mass of Neck Impaired fasting blood sugar Low hemoglobin Hemorrhoids Constipation by delayed colonic transit Parkinsons disease Chronic GERD Erectile dysfunction Hypertension, essential Lipid disorder Surgical History History of removal of cyst (~1999) History of colonoscopy Family History Father History of heart attack Mother Diabetes mellitus Maternal Grandfather History of lung cancer Maternal Grandmother No problems noted. Paternal Grandfather No problems noted. Paternal Grandmother No problems noted. Maternal Aunt No problems noted. Paternal Aunt No problems noted. Maternal Uncle No problems noted. Paternal Uncle No problems noted. Sister No problems noted. Son No problems noted. Daughter History of thyroid cancer Daughter No problems noted. Social History Housing: House Alcohol intake: former Patient Tobacco Use Status: Former Tobacco user (50 years ago ) e-Cigarette/Vaping Use: Never Used service: No Current occupational status: retired Cognitive needs: No Hearing needs: No Vision needs: Yes Questionnaire Thrive Questionnaire Date Thrive assessed: 03/05/24 I am a: Patient What is your living situation today?: I have a steady place to live Within the past 12 months, did the food you bought not last and you didn't have the money to get more?: Never true Within the past 12 months, did you worry whether your food would run out before you got money to buy more?: Never true Do you have trouble paying for medicines?: No Do you have trouble getting transportation to medical appointments?: No Do you have trouble paying your heating and electricity bill?: No Do you have trouble taking care of your child, family member or friend?: No Do you have trouble with day-to-day activities such as bathing, preparing meals, shopping, managing finances, etc.?: No Are you currently unemployed and looking for a job?: No Are you interested in more education?: No Please select the resources that you would like help with: None Currently or been in a relationship where the following occur: No concerns reported THRIVE Score: 0 RADHA-7 AMB Questionnaire RADHA-7 Date RADHA - 7 assessed: 03/11/24 Source: Developed by Drs. Nate Burgos, Rosalinda Bay, Junior Acosta and colleagues, with an educational sharron from [employer]. Physical exam (Primary Care) Vital Signs: Last Vital Signs Pulse 60 07/14/24 08:49 BP 102/66 07/14/24 08:49 Pulse Ox 97 07/14/24 08:49 Oxygen Delivery Method Room Air 07/14/24 08:49 BMI result Body Mass Index 28.5 Tobacco/Smoking Status: Tobacco use Status Tobacco use date assessed 03/11/24 07/14/24 08:52 Patient Tobacco Use Status Former Tobacco user (50 07/14/24 08:52 years ago ) e-Cigarette/Vaping Use Never Used 07/14/24 08:52 Thrive Assessment: Date of Thrive Assessment Date Thrive assessed 03/05/24 07/14/24 08:52 Currently or been in a relationship where the following occur: No concerns reported Coding Level of Care Code Est Pt Level 4 (65653) Complex EM visit Add On G2211 Diagnoses Hypertension, essential I10 Lipid disorder E78.9 Other male erectile dysfunction N52.8 Erectile dysfunction type: due to other cause Impaired fasting blood sugar R73.01 Delusional disorder F22 Assessment & Plan Assessment & Plan (1) Hypertension, essential: Code(s): I10 - Essential (primary) hypertension Category: Medical (2) Lipid disorder: Code(s): E78.9 - Disorder of lipoprotein metabolism, unspecified Category: Medical (3) Erectile dysfunction: Comment: Management through Urology Code(s): N52.9 - Male erectile dysfunction, unspecified Category: Medical Qualifiers: Erectile dysfunction type: due to other cause Qualified Code(s): N52.8 - Other male erectile dysfunction (4) Impaired fasting blood sugar: Comment: Diet-controlled Code(s): R73.01 - Impaired fasting glucose Category: Medical (5) Delusional disorder: Code(s): F22 - Delusional disorders Category: Medical Plan Patient is a 61-year-old female came in today for a regular follow-up visit.? Her blood pressure is elevated today, her blood pressure does fluctuate Patient is on labetalol 200 mg b.i.d. 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 Tobacco abuse: Smoking half a pack per day, advised patient to stop as soon as possible - Anemia: Hemoglobin has improved to 11, continue with iron supplement Chronic microscopic blood loss noted from the feet. Patient Instructions - Continue taking gabapentin as prescribed for pain management. - Continue taking iron supplements for anemia as they have improved hemoglobin levels. - A nicotine patch will be provided to assist in smoking cessation. Attempt to quit smoking and use the patch as directed for up to three months. - Schedule and attend the physical exam and fasting blood test appointment as previously planned. - Monitor blood pressure at home, considering current fluctuation possibly due to pain. - Return for follow-up if needed and attend the October appointment as scheduled. Orders: Orders Complete Blood Count Auto Diff Today E78.9 - Disorder of lipoprotein metabolism, unspecified, F22 - Delusional disorders, I10 - Essential (primary) hypertension, N52.1 - Erectile dysfunction due to diseases classified elsewhere, N52.9 - Male erectile dysfunction, unspecified, R73.01 - Impaired fasting glucose Comprehensive Met. Panel Today E78.9 - Disorder of lipoprotein metabolism, unspecified, F22 - Delusional disorders, I10 - Essential (primary) hypertension, N52.1 - Erectile dysfunction due to diseases classified elsewhere, N52.9 - Male erectile dysfunction, unspecified, R73.01 - Impaired fasting glucose Vitamin B12 Today E78.9 - Disorder of lipoprotein metabolism, unspecified, F22 - Delusional disorders, I10 - Essential (primary) hypertension, N52.1 - Erectile dysfunction due to diseases classified elsewhere, N52.9 - Male erectile dysfunction, unspecified, R73.01 - Impaired fasting glucose Vitamin D 25-OH (D2 and D3) Today E78.9 - Disorder of lipoprotein metabolism, unspecified, F22 - Delusional disorders, I10 - Essential (primary) hypertension, N52.1 - Erectile dysfunction due to diseases classified elsewhere, N52.9 - Male erectile dysfunction, unspecified, R73.01 - Impaired fasting glucose TSH reflex Free T4 Today E78.9 - Disorder of lipoprotein metabolism, unspecified, F22 - Delusional disorders, I10 - Essential (primary) hypertension, N52.1 - Erectile dysfunction due to diseases classified elsewhere, N52.9 - Male erectile dysfunction, unspecified, R73.01 - Impaired fasting glucose LDL Cholesterol Direct Today E78.9 - Disorder of lipoprotein metabolism, unspecified, F22 - Delusional disorders, I10 - Essential (primary) hypertension, N52.1 - Erectile dysfunction due to diseases classified elsewhere, N52.9 - Male erectile dysfunction, unspecified, R73.01 - Impaired fasting glucose Prostate Specific Antigen Today E78.9 - Disorder of lipoprotein metabolism, unspecified, F22 - Delusional disorders, I10 - Essential (primary) hypertension, N52.1 - Erectile dysfunction due to diseases classified elsewhere, N52.9 - Male erectile dysfunction, unspecified, R73.01 - Impaired fasting glucose Medications: Changed From lisinopril 20 mg PO DAILY 90 days 90 tabs 0RF I10 - Essential (primary) hypertension To lisinopril 10 mg PO DAILY 90 days 90 tabs 0RF I10 - Essential (primary) hypertension
--- OUTSIDE RECORDS SUMMARY | 2024-07-14 08:49 | XMS_ITS | Referral Summary ---
Author Organization [facility] Address [address] [place] [address] Care Team Providers Care Reports Developer Name Role Phone Antonio Anton Primary Care Provider [phone] Encounters Date Type Department Care Team Description 05/04/2024 Telephone [facility] [address] [place] [address] David Chau MD PhD 05/04/2024 Telephone [facility] [address] [place] [address] David Chau MD PhD 04/28/2024 [employer] Message [facility] [address] [place] [id number] David Chau MD PhD MRI from Last 3 Months Allergies Active Allergy Reactions Criticality Noted Date Comments Codeine Unknown 03/12/2024 Medications aspirin 81 mg EC tablet Take 81 mg by mouth once a day. Active carbidopa-levodo pa (SINEMET) 25-100 mg per tablet Take 1 tablet by mouth 2 (two) times a day. Active lisinopriL (PRINIVIL,ZESTRI L) 20 mg tablet Take 20 mg by mouth once a day. Active minocycline (MINOCIN,DYNACIN ) 100 mg capsule Take 100 mg by mouth as needed. Active OLANZapine (ZyPREXA) 10 mg tablet Take 10 mg by mouth nightly. 01/31/2024 Active Nuplazid 34 mg capsule Take 34 mg by mouth once a day. 02/21/2024 Active simvastatin (ZOCOR) 20 mg tablet Take 20 mg by mouth nightly. Active multivitamin (MULTIPLE VITAMINS DAILY ORAL) Take by mouth. Active Social History Tobacco Use Types Packs/Day Years Used Date Smoking Tobacco: Former Cigarettes Smokeless Tobacco: Never Tobacco Cessation:Counseling Given: Not Answered Alcohol Use Standard Drinks/Week Comments Not Currently 0 (1 standard drink = 0.6 oz pur e alcohol) Sex and Gender Information Value Date Recorded Sex Assigned at Male 03/12/2024 7:45 AM EST Legal Sex Male 3:19 PM EDT Gender Identity Not on file Sexual Orientation Not on file Last Filed Vital Signs Vital Sign Reading Time Taken Comments Blood Pressure 123/73 03/12/2024 8:01 AM EST Pulse 64 03/12/2024 8:01 AM EST Temperature 36.7 ??C (98 ??F) 03/12/2024 8:01 AM EST Respiratory Rate 20 03/12/2024 8:01 AM EST Oxygen Saturation - - Inhaled Oxygen Concentration - - Weight 98.4 kg (217 lb) 03/12/2024 8:01 AM EST Height - - Body Mass Index - - Plan of Treatment Upcoming Encounters Date Type Department Care Team (Late st Contact Info) Description 10/22/2024 9:30 AM EDT Office Visit [facility] [address] [place] [phone] David Chau MD PhD [address] [place] [address] [phone] Procedures * Due to [place] [employer] law, this organization might not be sharing negative HIV tests. 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 * MRI Brain W WO Contrast (04/17/2024 1:40 PM EST) Anatomical Region Laterality Modality Head and Neck Magnetic Resonan ce 04/17/2024 1:00 PM EST Narrative 04/23/2024 10:12 AM EST [facility] Accession Number: [id number] Patient Name: Guilherme Chicas Date of : 1945 Date of Exam: 04-17-2024 Referring Physician: David Chau ?[facility] ?[address] [place] [address] ?[place] [address] Exam: MR Brain (C-/C+) CPT 67701 Room Description: [place] [facility] Pion 3T HISTORY: Gait disorder and tremor. TECHNIQUE: Multiplanar multisequence MRI of the brain was obtained before and after the administration of 19 cc of Dotarem. COMPARISON: No prior studies are available for comparison at [facility]. FINDINGS: Moderate to moderate-severe proportionate prominence of the ventricles and sulci is noted. There is no mass effect or extra-axial fluid collection, and the cervicomedullary junction is unremarkable. No definite asymmetrical volume loss of the midbrain tectum. The flow voids through the nenana of Denny are maintained, and there is no restricted diffusion or abnormal susceptibility artifact. Scattered small FLAIR bright foci are present within the subcortical and deep cerebral white matter. The major dural venous sinuses are patent, and there is no abnormal intracranial enhancement. The visualized extracranial soft tissues and orbital structures are unremarkable. T2 bright signal is present within the posterior left ethmoid air cell. IMPRESSION: 1. Moderate to moderate-severe parenchymal volume loss/atrophy. No evidence of progressive supranuclear palsy. 2. Scattered T2 bright foci within the supratentorial white matter are nonspecific, but are compatible with chronic microangiopathic/small vessel ischemic change. Electronically Signed By: Armando Neil MD Procedure Note Provider, Abida - 04/23/2024 [facility] Accession Number: [id number] Patient Name: Guilherme Chicas Date of : 1945 Date of Exam: 04-17-2024 Referring Physician: David Chau [facility] [address] [place] [address] Exam: MR Brain (C-/C+) CPT 90512 Room Description: [place] [facility] 3T HISTORY: Gait disorder and tremor. TECHNIQUE: Multiplanar multisequence MRI of the brain was obtained before and after the administration of 19 cc of Dotarem. COMPARISON: No prior studies are available for comparison at [facility]. FINDINGS: Moderate to moderate-severe proportionate prominence of the ventricles and sulci is noted. There is no mass effect or extra-axial fluid collection, and the cervicomedullary junction is unremarkable. No definite asymmetrical volume loss of the midbrain tectum. The flow voids through the nenana of Denny are maintained, and there is no restricted diffusion or abnormal susceptibility artifact. Scattered small FLAIR bright foci are present within the subcortical and deep cerebral white matter. The major dural venous sinuses are patent, and there is no abnormal intracranial enhancement. The visualized extracranial soft tissues and orbital structures are unremarkable. T2 bright signal is present within the posterior left ethmoid air cell. IMPRESSION: 1. Moderate to moderate-severe parenchymal volume loss/atrophy. No evidence of progressive supranuclear palsy. 2. Scattered T2 bright foci within the supratentorial white matter are nonspecific, but are compatible with chronic microangiopathic/small vessel ischemic change. Electronically Signed By: Armando Neil MD David Chau MD PhD IMG MRI PROCEDURES Final Result from Last 3 Months Insurance MEDICARE [facility] Care Teams Reports Developer Relationship Specialty Start Date End Date DeseanAntonio [address] [place] [phone] PCP - General Internal Medicine 03/12/24
--- OUTSIDE RECORDS SUMMARY | 2024-07-14 08:49 | XMS_ITS ---
Author Organization [facility] Address [address] [place] [address] Care Team Providers Care Physician Representative Name Role Phone Desean EASTON, [facility] Primary Care Provider Noa Pereira Unavailable [phone] Allergies Allergen (clinical drug ingredient) Drug/Non Drug Allergy documented on EMR Reaction Allergy Type Onset Date Status codeine Codeine Unknown Drug Allergy Active REASON FOR VISIT At Risk Footcare, Painful Nail(s) aggravated by shoes and causing difficulty standing/walking. Medications Medication SIG (Take, Route, Frequency, Duration) Notes Start Date End Date Status Multi For Him Active Minocycline HCl 100 MG Oral for 90 Active Simvastatin 20 MG 1 tablet in the [...] Date Details (start date - stop date) Never Smoker NA - NA Tobacco use other than smoking: Question Answer Notes Are you an other tobacco user? No Tobacco Control (Standard) Question Answer Notes Tobacco use: Nonsmoker Additional Findings: Tobacco non-user Current no nsmoker AUDIT-C (Standard) Question Answer Notes Did you have a drink containing alcohol in the p ast year? No Points 0 Interpretation Negative Vital Signs Height 6ft in 06/11/2024 Weight 207 lbs 06/11/2024 BMI 28.07 kg/m2 06/11/2024 Blood pressure systolic 113 mm Hg 06/12/19 25 Blood pressure diastolic 60 mm Hg 025 Procedures Procedure Date Ordered Date Performed Result Body Sit e 84547-NNTDSGF NAIL, 6 OR MORE 06/11/2024 N/A 45112-IZYG SKIN LESIONS, 2 TO 4 06/11/2024 N/A Encounters Encounter Location Date Provider Diagnosis [facility] [place] [address] [place] [address] 06/11/2024 Noa Crooks Atherosclerosis of [place] artery of both lower extremities, with unspecified presence of clinical manifestation I70.203 ; Tinea unguium B35.1 ; Pain in right toe(s) M79.674 and Pain in left toe(s) M79.675 Assessments Encounter Date Diagnosis (ICD Code) Assessment Notes Treatment Notes Treatment Clinical Notes Section Notes 06/11/2024 Atherosclerosis of [place] artery of both lower extremities, with unspecified presence of clinical manifestation (ICD-10 - I70.203) Q7(A), Q8(2B), Q9(1B,2C) 06/11/2024 Tinea unguium (ICD-10 - B35.1) 06/11/2024 Pain in right toe(s) (ICD-10 - M79.674) 06/11/2024 Pain in left toe(s) (ICD-10 - M79.675) Plan Of Treatment Pending Test Test Name Order Date 56726-FQMPFLA NAIL, 6 OR MORE 06/11/2024 23311-PYKJ SKIN LESIONS, 2 TO 4 06/12/19 25 Next Appt Details Follow Up: 3 Months, Reason: Provider Name:Noa Snell nga, 09/16/2024 09:15:00 AM, [address] [place], [address], Procedure Notes * Category Sub-Category Detail Notes Debride Nail 6-10 Nail debridement Due to the cl inical pathology outlined in the exam findings, performance of this nail treatment is medically necessary as its management by an unskilled/untrained nonprofessional would put this patients foot and overall health at risk. Therefore, debridement to affected nail(s), as described in exam ( TA, T1, T2, T3, T4, T5, T6, T7, T8, T9, ) was performed exclusively by the physician of record to reduce/remove overall nail length, girth, thickness, subungual debris, and necrotic tissue, by manual and/or electrical means through the use of a nail nipper and/or dremel-type grinder set up operator external, to a more viable healthy nail plate [...] to maintain effectiveness in symptomatic relief - 97888 Keratoma Treatment Parring or Cutting o f Benign Hyperkeratotic Lesion(s) (-56) 2-4 Lesions - Due to the at risk nature of the patients medical condition as documented in the exam findings, performance of this keratoderma treatment is medically necessary as its management by an unskilled/untrained nonprofessional would put this patients foot and overall health at risk. Therefore, the benign hyperkeratotic lesions, (2) in total, locations as stated and described in the exam ( plantar heels B/L), were pared, and/or cut utilizing a sterile 15 blade, tissue nippers, and/or power dremel instrumentation by the physician of record - 40432, Q8 Progress Notes * Guilherme CHICAS JrDOB:[birth year] (79 yo M)Acc No.[id number]:06/11/2024 Progress Note Patient:?Guilherme CHICAS Provider:?Noa Crooks DPM :1945???Age:79 Y???Sex:Male Omar e:06/11/2024 Address:[address] [place], [place] [id number] Pcp:Antonio Anton MD Subjective: * Chief Complaints: * ???At Risk FootcarePainful N ail(s) aggravated by shoes and causing difficulty standing/walking. * HPI: ???At Risk footcare:?Pt States Last PCP Visit:?Date?03/26/2024 * ROS:?General/Constitutional:?Nausea?denies.?Vomiting?denies.?Hunger Thirst?denies.?Loss appetite?denies.?Chills?denies.?Fatigue?denies.?Fever?denies.?Night Sweats?denies.?Unexplained weight loss?denies.?Unexplained [...] of unspecified site.? * Social History:?Tobacco Use:?Tobacco use other than smoking?Are you an other tobacco user??No ?Tobacco Control (Standard)?Tobacco use:?Nonsmoker ?Additional Findings: Tobacco non-user?Current nonsmoker ???Drugs/Alcohol:?Drugs?Have you used drugs other than those for medical reasons in the past 12 months??No ???Miscellaneous:?Caffeine: yes, 2 cups per day. ?Children: no. ?Exercise: yes, walking 1 hour almost Daily. ?Marital status: . 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 ???Drug/Alcohol:?AUDIT-C (Standard)?Did you have a drink containing alcohol in the past year??No ?Points?0 ?Interpretation?Negative * Medications:?TakingNuplazid Aspirin Low Dose 81 MG [...] 6ft, Wt:207, BMI : 28.07, Shoe size:11M, BP:113/60mm Hg, Wt-k.89 kg. * Examination: ???Vascular: ?DP PULSES (B):?1/4, B/L.?PT PULSES (B):? 0/4, B/L.?CAPILLARY FILL TIME:? delayed, all digits, B/L.?TROPHIC CONDITION-TEXTURE/ELASTICITY/TURGOR/HAIR GROWTH (B):?decreased,, B/L.?TEMPERTURE GRADIENT (C):? decreased, cool to cool, proximal to distal, B/L.?PIGMENTATION:?hemosiderin deposition B/L.?EDEMA (C):?1/4, pitting, without aching pain, Leg(s), Ankle(s).?CLAUDICATION (C):?denies, B/L.?REST PAIN:?denies, B/L.?PARESTHESIA (C):?absent, B/L.?BURNING (C):?absent, B/L.?Nails: ?NAILS are:?Elongated, overgrown, dystrophic, lytic, greater than 3mm thick, discolored and friable with crumbly malodorous subungual debris, with pain on palpation,??TA, T1, T2, T3, T4, T5, T6, T7, T8, T9.?Dermatologic: ?SKIN FINDINGS:?Skin exam reveals Keratotic lesion(s) located at plantar heels B/L.? Assessment: * Assessment: 1.?Atherosclerosis of hoon[place] artery of both lower extremities, with unspecified presence of clinical manifestation - I70.203 (Primary)???Notes :Q7(A), Q8(2B), Q9(1B,2C)???2.?Tinea unguium - B35.1???3.?Pain in right toe(s) - M79.674???4.?Pain in left toe(s) - M79.675??? Plan: * Treatment: 2.?Tinea unguium?Procedure: 47775-JKAWQEA NAIL, 6 OR MORE * Procedures:?Debride Nail 6-10:?Nail debridement?Due to the clinical pathology outlined in the exam findings, performance of this nail treatment is medically necessary as its management by an unskilled/untrained nonprofessional would put this patients foot and overall health at risk. Therefore, debridement to affected nail(s), as described in exam ( TA, T1, T2, T3, T4, T5, T6, T7, T8, T9, )?was performed exclusively by the physician of record to reduce/remove overall nail length, girth, thickness, subungual debris, and necrotic tissue, by manual and/or electrical means through the use of a nail nipper and/or dremel-type grinder set up operator external, to a more viable healthy nail plate or bed tissue 6- 10 nails in total. Silver nitrate was used for any petechial bleeding as necessary. Definitive antifungal treatment options, both pharmaceutical and surgical, have been reviewed and discussed with the patient. The patient solely prefers the use of intermittent/as needed professional debridement services for their nail condition and understands the need for additional periodic treatments to maintain effectiveness in symptomatic relief - 67926.?Keratoma Treatment:?Parring or Cutting of Benign Hyperkeratotic Lesion(s)?(-56) 2-4 Lesions - Due to the at risk nature of the patients medical condition as documented in the exam findings, performance of this keratoderma treatment is medically necessary as its management by an unskilled/untrained nonprofessional would put this patients foot and overall health at risk. Therefore, the benign hyperkeratotic lesions, (2) in total, locations as stated and described in the exam ( plantar heels B/L), were pared, and/or cut utilizing a sterile 15 blade, tissue nippers, and/or power dremel instrumentation by the physician of record - 19099, Q8.? * Procedure Codes:?27633 DEBRI DE NAIL, 6 OR MORE, Modifiers: XS 76597 TRIM SKIN LESIONS, 2 TO 4, Modifiers: XS , Q8 * Follow Up:?3 Months * Images: * Sign off status: Completed true * Provider:?Noa Crooks DPM Date:?0 06/11/2024 Generated for Abbi roblero/Faxing/eTransmitting on:?07/14/2024 08:48 AM EDT History and Physical Notes * HPI (History of Present Illness) Category Sub-Category Detail Notes Category Not es At Risk footcare Pt States Last PCP Visit: Date: 5 Examination Category Sub-Category Detail Notes Category Not es Dermatologic SKIN FINDINGS: Skin exam reveal s Keratotic lesion(s) located at plantar heels B/L Vascular DP PULSES (B): 1/4, B/L PT [...] malodorous subungual debris, with pain on palpation, TA, T1, T2, T3, T4, T5, T6, T7, T8, T9
--- OUTSIDE RECORDS SUMMARY | 2024-07-14 08:49 | XMS_ITS | Patient Health Record ---
Author Organization [facility] jenn[facility] Address [address] [place] [address] Care Team Providers Care Water Purifier Operator Name Role Phone Desean EASTON, [facility] Primary [facility] Provider UnavailNoa Snyder Unavailable [phone] Jonh Ward Unavailable [phone] Allergies Allergen (clinical drug ingredient) Drug/Non Drug [...] 20 MG Oral for 90 A ctive Immunizations Vaccine Route Administration Date Status Comme [...] ast year? No Points 0 Interpretation Negative Problems Problem Type SNOMED Code ICD Code Onset Dates Problem Status W/U Status Risk Notes Problem Bilateral atherosclerosis of arteries of lower limbs ([id number] ) Atherosclerosis of [place] artery of both lower extremities, with unspecified presence of clinical manifestation (I70.203) Active confirmed Q7(A), Q8(2B), Q9(1B,2 C) Vital Signs Blood pressure diastolic 60 mm Hg 06/11/2024 Height 6ft in 06/11/2024 Blood pressure systolic 113 mm Hg 06/11/2024 Weight 207 lbs 06/11/2024 BMI 28.07 kg/m2 06/11/2024 Procedures Procedure Date Ordered Date Performed Result Body Sit e 91552-EKSIJYV NAIL, 6 OR MORE 01/22/2024 N/A 22266-CHJQ SKIN LESIONS, 2 TO 4 01/22/2024 N/A 03091-QIOCADL NAIL, 6 OR MORE 06/11/2024 N/A 42721-TMFL SKIN LESIONS, 2 TO 4 06/11/2024 N/A Encounters Encounter Location Date Provider Diagnosis [facility] [address] 10/17/2023 Jonh Ward Skin disease L98.9 ; Pain in left foot M79.672 ; Pain in right foot M79.671 ; Ingrowing nail L60.0 ; 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 ; Tinea unguium B35.1 and Parkinson's disease, unspecified whether dyskinesia present, unspecified whether manifestations fluctuate G20.A1 [facility] [address] [address] 01/22/2024 Noa Crooks Atherosclerosis of [place] artery of both lower extremities, with unspecified presence of clinical manifestation I70.203 ; Tinea unguium B35.1 ; Pain in right toe(s) M79.674 ; Pain in left toe(s) M79.675 and Parkinson's disease, unspecified whether dyskinesia present, unspecified whether manifestations fluctuate G20.A1 [facility] [address] 06/11/2024 Noa Crooks Atherosclerosis of [place] artery of both lower extremities, with unspecified presence of clinical manifestation I70.203 ; Tinea unguium B35.1 ; Pain in right toe(s) M79.674 and Pain in left toe(s) M79.675 Assessments Encounter Date Diagnosis (ICD Code) Assessment Notes Treatment Notes Treatment Clinical Notes Section Notes 10/17/2023 Skin disease (ICD-10 - L98.9) 01/22/2024 Atherosclerosis of [place] artery of both lower extremities, with unspecified presence of clinical manifestation (ICD-10 - I70.203) Q7(A), Q8(2B), Q9(1B,2C) 06/11/2024 Atherosclerosis of [place] artery of both lower extremities, with unspecified presence of clinical manifestation (ICD-10 - I70.203) Q7(A), Q8(2B), Q9(1B,2C) 06/11/2024 Tinea unguium (ICD-10 - B35.1) 10/17/2023 Pain in left foot (ICD-10 - M79.672) 01/22/2024 Tinea unguium (ICD-10 - B35.1) 10/17/2023 Pain in right foot (ICD-10 - M79.671) 01/22/2024 Pain in right toe(s) (ICD-10 - M79.674) 06/11/2024 Pain in right toe(s) (ICD-10 - M79.674) 06/11/2024 Pain in left toe(s) (ICD-10 - M79.675) 01/22/2024 Pain in left toe(s) (ICD-10 - M79.675) 10/17/2023 Ingrowing nail (ICD-10 - L60.0) 10/17/2023 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) 01/22/2024 Parkinson's disease, unspecified whether dyskinesia present, unspecified whether manifestations fluctuate (ICD-10 - G20.A1) 10/17/2023 Tinea unguium (ICD-10 - B35.1) 10/17/2023 Parkinson's disease, unspecified whether dyskinesia present, unspecified whether manifestations fluctuate (ICD-10 - G20.A1) Plan Of Treatment Pending Test Test Name Order Date 74316-NXBWDZZ NAIL, 6 OR MORE 01/22/2024 13972-IDBATDJ NAIL, 6 OR MORE 06/11/2024 79777-TXCX SKIN LESIONS, 2 TO 4 06/12/19 99028-FXRT SKIN LESIONS, 2 TO 4 01/22/20 24 Next Appt Details Provider Name:Noa sylvester, 09/16/2024 09:15:00 AM, [address] [place], [address], Insurance Providers Payer Name Payer Address Payer Phone Subscriber Number Group Number Insured Name Patient Relationship to Insured Coverage Start Date Coverage End Date Medicare National Govt [facility] [address] [place] [address] [id number] Guilherme Chicas Self - patient is the insured [facility] [address] [place] [address] [id number] Guilherme Chicas Self - patient is the insured Medical (General) History Medical History History ICD Code Broken bones CAD (Cholesterol) Cataracts High blood pressure Parkinsons disease Warts Surgical History Surgery Date(Month/Year)
--- OUTSIDE RECORDS SUMMARY | 2024-07-14 08:49 | XMS_ITS ---
Author Organization [facility] Address [address] [place] [address] Care Team Providers Care Personal Caregiver Name Role Phone Desean EASTON, [facility] Primary Care Provider UnavailNoa Snyder Unavailable [phone] Jonh Ward Unavailable [phone] Allergies Allergen (clinical drug ingredient) Drug/Non Drug [...] 024 Encounters Encounter Location Date Provider Diagnosis [facility] [place] [address] [place] [address] 10/17/2023 Jonh Ward Skin disease L98.9 ; [...] Up: 3 Months, Reason: Provider Name:Noa sylvester, 09/16/2024 09:15:00 AM, [address] [place], [address], Progress Notes * Guilherme CHICAS PDOB: [birth year] (78 yo M)Acc No.[id number]:10/17/2023 Progress Note Patient:?Juan Francisco Guilherme Barraza Provider:Jade Ward DPM :1945???Age:78 Y???Sex:Male Omar e:10/17/2023 Address:[address] [place] [address] [address] , [place], [place] Pcp:Antonio Anton MD Subjective: * Chief Complaints: * ???PCP - 11/2022 * HPI: ???Ingrown toenail:?Nature:?tenderness.?Location:?Great toe, Both feet.?Duration:?several months .?Course:?intermittent.?Misc:?in law to lAeida and Noe Euceda--his D to their S; [...] Daily. ?Marital status: . 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 * Medications:?TakingNuplazid Aspirin Low Dose 81 MG [...] DPM Date:? 024 Generated for Abbi roblero/Valdo/eTransmitting on:?07/14/2024 08:48 AM [...]
--- OUTSIDE RECORDS SUMMARY | 2024-07-14 08:49 | XMS_ITS | Clinical Summary ---
Author Organization [facility] Address [address] [place] [address] Care Team Providers Care Isolation Washer Name Role Phone Antonio Anton Primary Care Provider [phone] Allergies Active Allergy Reactions Criticality Noted Date [...] VITAMINS DAILY ORAL) Take by mouth. Active Encounters Date Type Department Care Team Description 05/04/2024 Telephone [facility] [address] [place] [address] David Chau MD PhD 05/04/2024 Telephone [facility] [address] [place] [address] David Chau MD PhD 04/28/2024 [place]ico Message [facility] [address] [place] [address] David Chau MD PhD MRI from Last 3 Months Family History Medical History Relation Name Comments Alzheimer's disease Father Dementia Father Diabetes Mother Relation Name Status Comments Father Mother Social History Tobacco Use Types Packs/Day Years [...] Description 10/22/2024 9:30 AM EDT Office Visit [facility] [address] [place] [address] David Chau MD PhD [address] [place] [address] Health Maintenance Due Date Last Done Comments Hepatitis C Screening 1945 Medicare AWV 05/22/1947 CT Lung Cancer Screening (Baseline) 1996 Zoster Vaccines (2 of 3) 02/19/2013 12/25/2012 Alcohol/Substance Use Screening 02/26/2024 Depression Screening and Follow-Up 02/26/2024 Health Care Proxy Review 02/26/2024 Social Drivers of Health Annual Screening 02/26/2024 COVID-19 Vaccine ( season) 2024 11/03/2023, 05/10/2023, 12/04/2022, Additional history exists DTaP,Tdap,and Td Vaccines (2 - Td or Tdap) 05/27/2024 05/27/2014 Fall Risk Screening 03/12/2025 03/12/2024 Tobacco Screening 02/25/2042 03/12/2024 Pneumococcal Vaccine: 50+ Years Completed 11/10/2014, 11/24/2012 RSV Vaccine (60+ years old and patients) Completed 01/29/2023 Influenza Vaccine Completed 11/03/2023, , 11/20/2021, Additional history exists Hepatitis B Vaccines Aged Out No long er eligible based on patient's age to complete this topic Procedures * Due to [place] [employer] law, this organization might not be sharing negative HIV tests. 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 * MRI Brain W WO Contrast (04/17/2024 1:40 PM EST) Anatomical Region Laterality Modality Head and Neck Magnetic Resonan ce 04/17/2024 1:00 PM EST Narrative 04/23/2024 10:12 AM EST [facility] Accession Number: [id number] Patient Name: Guilherme Chicas Date of : 1945 Date of Exam: 04-17-2024 Referring Physician: David Chau ?[facility] ?[address] [place] [address] ?[place] [address] Exam: MR Brain (C-/C+) CPT 92521 Room Description: [facility] 3T HISTORY: Gait disorder and tremor. TECHNIQUE: Multiplanar multisequence MRI of the brain was obtained before and after the administration of 19 cc of Dotarem. COMPARISON: No prior studies are available for comparison at [facility]. FINDINGS: Moderate to moderate-severe proportionate prominence of the ventricles and sulci is noted. There is no mass effect or extra-axial fluid collection, and the cervicomedullary junction is unremarkable. No definite asymmetrical volume loss of the midbrain tectum. The flow voids through the [place] are maintained, and there is [...] By: Armando Neil MD Procedure Note Provider, Tai - 04/23/2024 [facility] Accession Number: [id number] Patient Name: Guilherme Cihcas Date of : 1945 Date of Exam: 04-17-2024 Referring Physician: David Chau [facility] [address] [place] [address] Exam: MR Brain (C-/C+) CPT 73388 Room Description: [facility] 3T HISTORY: Gait disorder and tremor. TECHNIQUE: Multiplanar multisequence MRI of the brain was obtained before and after the administration of 19 cc of Dotarem. COMPARISON: No prior studies are available for comparison at [facility]. FINDINGS: Moderate to moderate-severe proportionate prominence of the ventricles and sulci is noted. There is no mass effect or extra-axial fluid collection, and the cervicomedullary junction is unremarkable. No definite asymmetrical volume loss of the midbrain tectum. The flow voids through the [place] are maintained, and there is [...] Result from Last 3 Months Insurance MEDICARE [facility] Care Teams Isolation Washer Relationship Specialty Start Date End Date Desean Antonio [facility] [place] [address] PCP - General Internal Medicine 03/12/24
== END 2024-07-14 09:09 | disposition home or self-care (01) ==
LOC: HO.HMCC 08:36
PROVIDERS: PCP Internal Medicine; Visit Provider Internal Medicine
DX: I10 Essential (primary) hypertension (principal); E78.9 Disorder of lipoprotein metabolism, unspecified; N52.8 Other male erectile dysfunction; R73.01 Impaired fasting glucose; F22 Delusional disorders

== ENCOUNTER 2024-07-14 08:36 | Outpatient (REF) | payer MEDICARE, OTHER, SELFPAY ==
--- OUTSIDE RECORDS SUMMARY | 2024-07-14 09:55 | XMS_ITS | Referral Summary ---
Author Organization [facility] Address [address] [place] [address] Care Team Providers Care Debone Processing Supervisor Name Role Phone Antonio Anton Primary Care Provider Encounters Date Type Department Care Team Description 05/04/2024 Telephone [facility] [address] [place] [address] David Chau MD PhD 05/04/2024 Telephone [facility] [address] [place] [address] David Chau MD PhD 04/28/2024 [employer] Message [facility] [address] [place] [phone] David Chau MD PhD MRI from Last [...] Description 10/22/2024 9:30 AM EDT Office Visit [facility] [address] [place] [id number] David Chau MD PhD [address] [place] [address] [phone] Procedures * Due to [place] Domob law, this organization might not be sharing negative HIV tests. 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 * MRI Brain W WO Contrast (04/17/2024 1:40 PM EST) Anatomical Region Laterality Modality Head and Neck Magnetic Resonan ce 04/17/2024 1:00 PM EST Narrative 04/23/2024 10:12 AM EST [facility] Accession Number: [id number] Patient Name: Guilherme Chicas Date of : 1945 Date of Exam: 04-17-2024 Referring Physician: David Chau ?[facility] ?[address] [place] [address] ?[place] [address] Exam: MR Brain (C-/C+) CPT 20551 Room Description: [facility] 3T HISTORY: Gait disorder and tremor. TECHNIQUE: Multiplanar multisequence MRI of the brain was obtained before and after the administration of 19 cc of Dotarem. COMPARISON: No prior studies are available for comparison at [facility]. FINDINGS: Moderate to moderate-severe proportionate prominence of the ventricles and sulci is noted. There is no mass effect or extra-axial fluid collection, and the cervicomedullary junction is unremarkable. No definite asymmetrical volume loss of the midbrain tectum. The flow voids through the ton[place]anda of Denny are maintained, and there is [...] MD Procedure Note Provider, Abida - 04/23/2024 [facility] Accession Number: [id number] Patient Name: Guilherme Chicas Date of : 1945 Date of Exam: 04-17-2024 Referring Physician: David Chau [facility] [address] [place] [address] Exam: MR Brain (C-/C+) CPT 10943 Room Description: [facility] 3T HISTORY: Gait disorder and tremor. TECHNIQUE: Multiplanar multisequence MRI of the brain was obtained before and after the administration of 19 cc of Dotarem. COMPARISON: No prior studies are available for comparison at [facility]. FINDINGS: Moderate to moderate-severe proportionate prominence of the ventricles and sulci is noted. There is no mass effect or extra-axial fluid collection, and the cervicomedullary junction is unremarkable. No definite asymmetrical volume loss of the midbrain tectum. The flow voids through the ton[place]anda of Denny are maintained, and there is [...] Result from Last 3 Months Insurance MEDICARE [facility] Care Teams Debone Processing Supervisor Relationship Specialty Start Date End Date DeseanAntonio [address] [place] [id number] PCP - General Internal Medicine 03/12/24
--- OUTSIDE RECORDS SUMMARY | 2024-07-14 09:55 | XMS_ITS | Clinical Summary ---
Author Organization [facility] Address [address] [place] [address] Care Team Providers Care Federal Agent Name Role Phone Antonio Anton Primary Care Provider [phone] Allergies Active Allergy Reactions Criticality Noted Date [...] Type Department Care Team Description 05/04/2024 Telephone [facility] [address] [place] [address] David Chau MD PhD 05/04/2024 Telephone [facility] [address] [place] [address] David Chau MD PhD 04/28/2024 [employer] Message [facility] [address] [place] [phone] David Chau MD PhD MRI from Last [...] Description 10/22/2024 9:30 AM EDT Office Visit [facility] [address] [place] [phone] David Chau MD PhD [address] [place] [address] Health Maintenance Due Date Last Done Comments [...] complete this topic Procedures * Due to [place] IPICO law, this organization might not be sharing negative HIV tests. 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 * MRI Brain W WO Contrast (04/17/2024 1:40 PM EST) Anatomical Region Laterality Modality Head and Neck Magnetic Resonan ce 04/17/2024 1:00 PM EST Narrative 04/23/2024 10:12 AM EST [facility] Accession Number: [id number] Patient Name: Guilherme Chicas Date of : 1945 Date of Exam: 04-17-2024 Referring Physician: David Chau ?[facility] ?[address] [place] [address] ?[place] [address] Exam: MR Brain (C-/C+) CPT 06097 Room Description: [facility] Pion 3T HISTORY: Gait disorder and tremor. TECHNIQUE: Multiplanar multisequence MRI of the brain was obtained before and after the administration of 19 cc of Dotarem. COMPARISON: No prior studies are available for comparison at [facility]. FINDINGS: Moderate to moderate-severe proportionate prominence of the ventricles and sulci is noted. There is no mass effect or extra-axial fluid collection, and the cervicomedullary junction is unremarkable. No definite asymmetrical volume loss of the midbrain tectum. The flow voids through the robinson of Denny are maintained, and there is [...] MD Procedure Note Provider, Tai - 04/23/2024 [facility] Accession Number: [id number] Patient Name: Guilherme Chicas Date of : 1945 Date of Exam: 04-17-2024 Referring Physician: David Chau [facility] [address] [place] [address] Exam: MR Brain (C-/C+) CPT 71250 Room Description: [facility] 3T HISTORY: Gait disorder and tremor. TECHNIQUE: Multiplanar multisequence MRI of the brain was obtained before and after the administration of 19 cc of Dotarem. COMPARISON: No prior studies are available for comparison at [facility]. FINDINGS: Moderate to moderate-severe proportionate prominence of the ventricles and sulci is noted. There is no mass effect or extra-axial fluid collection, and the cervicomedullary junction is unremarkable. No definite asymmetrical volume loss of the midbrain tectum. The flow voids through the robinson of Denny are maintained, and there is [...] Result from Last 3 Months Insurance MEDICARE [facility] Care Teams Federal Agent Relationship Specialty Start Date End Date Desean Antonio [place] [address] PCP - General Internal Medicine 03/12/24
[2024-07-14 10:21] LABS: MANUAL DIFF FLAG NO
[2024-07-14 10:23] LABS: Basophils Percent Auto 0.3 % (0-2); Eosinophils Percent Auto 0.5 % (0-4); Hematocrit 37.4 % (42.0-52.0); Hemoglobin 12.8 g/dl (14.0-18.0); Imm Gran Abs Auto 0.01 X10*3/uL (0.00-0.03); Imm Gran Pct Auto 0.2 % (0.0-0.4); Lymphocytes Absolute Auto 2.6 X10*3/uL (1.2-4.9); Lymphocytes Percent Auto 43.5 % (20-40); Mean Corpuscular HGB Conc 34.2 g/dl (31.0-36.0); Mean Corpuscular Hemoglobin 32.3 pg (27.0-33.0); Mean Corpuscular Volume 94.4 fL (80.0-98.0); Mean Platelet Volume 11.5 fL (9.4-12.4); Monocytes Absolute Auto 0.4 X10*3/uL (0.1-1.2); Neutrophils Absolute Auto 2.8 x10*3/uL (2.0-8.3); Neutrophils Percent Auto 48.5 % (45-73); Platelet Count 202 X10*3/uL (160-400); Red Blood Count 3.96 X10*6/uL (4.60-5.80); Red Cell Distribution Width 12.4 % (11.0-16.0); White Blood Count 5.9 X10*3/uL (4.8-10.8)
[2024-07-14 11:40] LABS: Alanine Aminotransferase 24 U/L (0-40); Albumin Level 4.1 g/dL (3.5-5.0); Alkaline Phosphatase 70 U/L (39-117); Anion Gap 12 (12-20); Aspartate Amino Transferase 33 U/L (5-37); Bilirubin Total 0.5 mg/dL (0.0-1.0); Blood Urea Nitrogen 16 mg/dL (9-16); Calcium 9.2 mg/dL (8.4-10.2); Carbon Dioxide 23 mmol/L (22-29); Chloride 108 mmol/L (96-108); Estimated Glomerular Filt Rate > 60; Glucose Random 87 mg/dL (60-115); Potassium 4.2 mmol/L (3.3-5.1); Sodium 139 mmol/L (135-145); Total Protein 7.1 g/dL (6.5-8.0)
[2024-07-14 11:48] LABS: TSH reflex Free T4 3.05 uIU/mL (0.32-4.0)
[2024-07-14 11:49] LABS: Vitamin B12 571 pg/mL (200-900)
[2024-07-15 10:27] LABS: LDL Cholesterol Direct 67 mg/dL (<100)
[2024-07-23 13:01] LABS: Vitamin D 25-OH, D2 <4; Vitamin D 25-OH, D3 33; Vitamin D 25-OH, Total 33
== END 2024-07-14 08:37 | disposition home or self-care (01) ==
LOC: HO.HMGCLDS 08:36
PROVIDERS: PCP Internal Medicine; Visit Provider Internal Medicine
DX: I10 Essential (primary) hypertension (principal); E78.9 Disorder of lipoprotein metabolism, unspecified; N52.8 Other male erectile dysfunction; R73.01 Impaired fasting glucose; F22 Delusional disorders; E61.1 Iron deficiency; K21.9 Gastro-esophageal reflux disease without esophagitis; Z79.899 Other long term (current) drug therapy; Z12.5 Encounter for screening for malignant neoplasm of prostate
CPT/HCPCS: 36415; 80053; 82306; 82607; 83721; 84153; 84443; 85025; 99212

== ENCOUNTER 2024-10-23 10:31 | Outpatient (AMB) | payer MEDICARE, OTHER, SELFPAY ==
--- OUTSIDE RECORDS SUMMARY | 2024-10-22 09:30 | XMS_ITS | Encounter Summary ---
Author Organization [facility] Address [address] [place] [address] Care Team Providers Care Equip Maint Eng Name Role Phone Antonio Anton Primary Care Provider [phone] Reason for Visit * Consultation (Routine) - Authorized Specialty Diagnoses / Procedures Referred By Jared rizo Referred To Contact Neurology Diagnoses Parkinson's Procedures NEW MOVEMENT David Chau MD PhD [address] [place] [address] Phone: tel: fax: Referral ID Status Reason Start Date Expiration Date V isits Requested Visits Authorized [id number] Authorized 03/12/2024 09/11/2025 6 6 Encounter Details Date Type Department Care Team (Late st Contact Info) Description 10/22/2024 9:30 AM EDT Office Visit [facility] [address] [place] [phone] David Chau MD PhD [address] [place] [address] Social History Tobacco Use Types Packs/Day Years Used Date Smoking Tobacco: Former Cigarettes Smokeless Tobacco: Never Alcohol Use Standard Drinks/Week Comments Not Currently 0 (1 standard drink = 0.6 oz pur e alcohol) Sex and Gender Information Value Date Recorded Sex Assigned at Male 03/12/2024 7:45 AM EST Legal Sex Male 3:19 PM EDT Gender Identity Not on file Sexual Orientation Not on file documented as of this encounter Last Filed Vital Signs Vital Sign Reading Time Taken Comments Blood Pressure 105/62 10/22/2024 9:03 AM EDT Pulse 65 10/22/2024 9:03 AM EDT Temperature 36.7 C (98 F) 10/22/2024 9:03 AM EDT Respiratory Rate 16 10/22/2024 9:03 AM EDT Oxygen Saturation - - Inhaled Oxygen Concentration - - Weight 89 kg (196 lb 3.4 oz) 10/22/2024 9:03 AM EDT Height - - Body Mass Index - - documented in this encounter Plan of Treatment Upcoming Encounters Date Type Department Care Team (Late st Contact Info) Description 06/10/2025 9:00 AM EDT Office Visit [facility] [address] [place] [address] David Chau MD PhD [address] [place], [place] [phone] documented as of this encounter Visit Diagnoses Not on filedocumented in this encounter Care Teams Equip Maint Eng Relationship Specialty Start Date End Date Antonio Anton [address] [place] [address] PCP - General Internal Medicine 03/12/24 documented as of this encounter
--- NOTE | 2024-10-23 10:32 | A.OFFPC_ITS ---
Vital Signs 10/23/24 10:33 Height 6 ft Weight 197 lb BMI 26.7 BP 90/60 Blood Pressure Location Rt brachial Position Sitting Respiration 18 Pulse 71 Pulse Source Pulse Oximeter Temp 98.0 F Temp Source Oral Pulse Oximetry (%) 96 Oxygen Delivery Method Room Air Intake Visit Reasons: 3 month follow up Allergies codeine Allergy (Unknown, Verified 10/23/24 10:33) does not remember it happened when pt was a child Medication List - Last Reconciled 10/23/24 by Antonio Anton MD aspirin (Adult Low Dose Aspirin) 81 mg PO DAILY carbidopa-levodopa 25-100 mg 1 tab PO BID lisinopril 10 mg PO DAILY 90 days minocycline mg PO DAILY multivitamin (Daily Multi-Vitamin tablet) 1 tab PO DAILY sildenafil 100 mg PO ONCE PRN 30 days simvastatin 20 mg PO DAILY 90 days Tobacco use date assessed: 10/23/24 Fall risk assessment: 1 Fall in past year Last assessed Fall Risk: 10/23/24 Dental Screening Dental Screen Date: 10/23/24 Did you have a dental visit in the last 12 months?: No Did you have a dental problem in the last 6 months where you did not have access to dental care?: No Was dental information given to patient?: Patient has dentist HPI 3 month follow up HPI Details Longitudinal care visit History The patient is a 79-year-old male presenting with potential Parkinson's disease and raspy voice. Potential Parkinson's Disease: - Patient has a history of consultations with a Parkinson's specialist who doubted the diagnosis of Parkinson's disease. - Reports taking carbidopa/levodopa as p rescribed by specialists, currently the lowest dose; historical increment of up to four pills a day reported. - Experienced some improvement in mobili ty but continues with stiffness, particularly when rising from a chair. - Specialists have recommended a ANGELITA sca n and have scheduled an MRI to further assess the condition. - Walking abilities have shown improveme nt with medication; however, adjustments to the current dose of carbidopa/levodopa may be necessary. Raspy Voice: - The patient reports a raspy voice pers isting for around four to six weeks, with no prior related issues. - Suspected causes discussed include pos t-nasal drip and reflux. - The symptom was noted to be more prono unced in the mornings, suggesting possible night-time reflux. - The patient's thyroid level was normal as of the latest test in June. Medical History: - Essential Hypertension - Potential Parkinson?s Disease - Allergies to Codeine - History of hallucinations managed with Olanzapine Medications: - Carbidopa/Levodopa: Management of pote ntial Parkinson's disease - Lisinopril: Management of blood pressu re, currently held due to low readings - Simvastatin: Management of cholesterol Social History: - Engages in regular walking for about 4 5 minutes to an hour without using assistance such as a cane. - Declines usage of the cane as walking improves once stabilized. Problem List - Potential Parkinson's Disease - Hypertension - Dysphonia (Raspy voice) - Allergy to Codeine - Hypercholesterolemia Diagnostic results - Thyroid-stimulating hormone levels fern cked in June were within normal limits. [place] of Care - Consultation with a Psychiatry special ist Dr. Todd. - Referral in place to see a hematologis t for the evaluation of monoclonal band presence. Lab test done through Parkinson's specialist Patient does not know which Hematology he will be seeing referral was provided by the specialist Patient Instructions - Continue taking carbidopa/levodopa as prescribed. - Begin ulcm-ugu-hepbipo pantoprazole fo r suspected reflux; take at night with a sip of water. - Avoid eating at least four hours befor e bedtime to help manage reflux symptoms. - Monitor and record blood pressure read ings; hold lisinopril until further notice. Lisinopril was stopped due to blood pressure running low patient was on 10 mg - Arrange an appointment with the hemato logist as advised by the specialist. - Report any worsening of symptoms or ne w symptoms promptly. 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 awake oriented x3 motor sensory intact, slowness of movement /gait skin: Normal turgor [facility], [facility] Medical History Parkinson's disease without dyskinesia or fluctuating manifestations Mass of Neck Impaired fasting blood sugar Low hemoglobin Hemorrhoids Constipation by delayed colonic transit Parkinsons disease Chronic GERD Erectile dysfunction Hypertension, essential Lipid disorder Surgical History History of removal of cyst (~2000) History of colonoscopy Family History Father History of heart attack Mother Diabetes mellitus Maternal Grandfather History of lung cancer Maternal Grandmother No problems noted. Paternal Grandfather No problems noted. Paternal Grandmother No problems noted. Maternal Aunt No problems noted. Paternal Aunt No problems noted. Maternal Uncle No problems noted. Paternal Uncle No problems noted. Sister No problems noted. Son No problems noted. Daughter History of thyroid cancer Daughter No problems noted. Social History Housing: House Alcohol intake: former Patient Tobacco Use Status: Former Tobacco user (50 years ago ) e-Cigarette/Vaping Use: Never Used service: No Current occupational status: retired Cognitive needs: No Hearing needs: No Vision needs: Yes Questionnaire Thrive Questionnaire Date Thrive assessed: 03/05/24 I am a: Patient What is your living situation today?: I have a steady place to live Within the past 12 months, did the food you bought not last and you didn't have the money to get more?: Never true Within the past 12 months, did you worry whether your food would run out before you got money to buy more?: Never true Do you have trouble paying for medicines?: No Do you have trouble getting transportation to medical appointments?: No Do you have trouble paying your heating and electricity bill?: No Do you have trouble taking care of your child, family member or friend?: No Do you have trouble with day-to-day activities such as bathing, preparing meals, shopping, managing finances, etc.?: No Are you currently unemployed and looking for a job?: No Are you interested in more education?: No Please select the resources that you would like help with: None Currently or been in a relationship where the following occur: No concerns reported THRIVE Score: 0 AUDIT C Alcohol Use Questionnaire (AUDIT-C) 1. How often do you have a drink containing alcohol?: Never 3. How often do you have six or more drinks on one occasion?: Never Total Score: 0 RADHA-7 AMB Questionnaire RADHA-7 Date RADHA - 7 assessed: 03/11/24 Source: Developed by Drs. Nate Burgos, Rosalinda Bay, Junior Acosta and colleagues, with an educational sharron from [employer] Physical exam (Primary Care) Vital Signs: Last Vital Signs Temp 98.0 F 10/23/24 10:33 Pulse 71 10/23/24 10:33 Resp 18 10/23/24 10:33 BP 90/60 10/23/24 10:33 Pulse Ox 96 10/23/24 10:33 Oxygen Delivery Method Room Air 10/23/24 10:33 BMI result Body Mass Index 26.7 Tobacco/Smoking Status: Tobacco use Status Tobacco use date assessed 10/23/24 10/23/24 10:35 Patient Tobacco Use Status Former Tobacco user (50 10/23/24 10:35 years ago ) e-Cigarette/Vaping Use Never Used 10/23/24 10:35 Thrive Assessment: Date of Thrive Assessment Date Thrive assessed 03/05/24 10/23/24 10:35 Currently or been in a relationship where the following occur: No concerns reported Coding Level of Care Code Est Pt Level 5 (48644) Diagnoses Hoarseness of voice R49.0 Chronic GERD K21.9 Hypertension, essential I10 Lipid disorder E78.9 Impaired fasting blood sugar R73.01 Delusional disorder F22 Parkinson's disease with dyskinesia and fluctuating manifestations G20.B2 Dyskinesia presence: with dyskinesia Fluctuating manifestations: with fluctuating manifestations Time Spent (min) 40 Comment Reviewing chart/labs/consultation reports/dyco-ok-jtyf/coordination of care Assessment & Plan Assessment & Plan (1) Hoarseness of voice: Code(s): R49.0 - Dysphonia Category: Medical (2) Chronic GERD: Code(s): K21.9 - Gastro-esophageal reflux disease without esophagitis Category: Medical (3) Hypertension, essential: Code(s): I10 - Essential (primary) hypertension Category: Medical (4) Lipid disorder: Code(s): E78.9 - Disorder of lipoprotein metabolism, unspecified Category: Medical (5) Impaired fasting blood sugar: Comment: Diet-controlled Code(s): R73.01 - Impaired fasting glucose Category: Medical (6) Delusional disorder: Code(s): F22 - Delusional disorders Category: Medical (7) Parkinsons disease: Code(s): G20 - Parkinson's disease Category: Medical Qualifiers: Dyskinesia presence: with dyskinesia Fluctuating manifestations: with fluctuating manifestations Qualified Code(s): G20.B2 - Parkinson's disease with dyskinesia, with fluctuations Plan Longitudinal care visit History The patient is a 79-year-old male presenting with potential Parkinson's disease and raspy voice. Potential Parkinson's Disease: - Patient has a history of consultations with a Parkinson's specialist who doubted the diagnosis of Parkinson's disease. - Reports taking carbidopa/levodopa as prescribed by specialists, currently the lowest dose; historical increment of up to four pills a day reported. - Experienced some improvement in mobility but continues with stiffness, p articularly when rising from a chair. - Specialists have recommended a ANGELITA scan and have scheduled an MRI to further assess the condition. - Walking abilities have shown improvement with medication; however, adjustments to the current dose of carbidopa/levodopa may be necessary. Raspy Voice: - The patient reports a raspy voice persisting for around four to six weeks, with no prior related issues. - Suspected causes discussed include post-nasal drip and reflux. - The symptom was noted to be more pronounced in the mornings, suggesting possible night-time reflux. - The patient's thyroid level was normal as of the latest test in June. Medical History: - Essential Hypertension - Potential Parkinson?s Disease - Allergies to Codeine - History of hallucinations managed with Olanzapine Medications: - Carbidopa/Levodopa: Management of potential Parkinson's disease - Lisinopril: Management of blood pressure, currently held due to low readings - Simvastatin: Management of cholesterol Social History: - Engages in regular walking for about 45 minutes to an hour without using assistance such as a cane. - Declines usage of the cane as walking improves once stabilized. Problem List - Potential Parkinson's Disease - Hypertension - Dysphonia (Raspy voice) - Allergy to Codeine - Hypercholesterolemia Diagnostic results - Thyroid-stimulating hormone levels checked in June were within normal limits. [place] of Care - Consultation with a Psychiatry specialist Dr. Todd. - Referral in place to see a bioinformatics research technician for the evaluation of monoclonal band presence. Lab test done through Parkinson's specialist Patient does not know which Hematology he will be seeing referral was provided by the specialist Patient Instructions - Continue taking carbidopa/levodopa as prescribed. - Begin lytu-kzz-swciyxo pantoprazole for suspected reflux; take at night with a sip of water. - Avoid eating at least four hours before bedtime to help manage reflux symptoms. - Monitor and record blood pressure readings; hold lisinopril until further notice. Lisinopril was stopped due to blood pressure running low patient was on 10 mg - Arrange an appointment with the bioinformatics research technician as advised by the specialist. - Report any worsening of symptoms or new symptoms promptly. Follow-up 3 months Medications: New pantoprazole 40 mg PO DAILY 90 tabs 0RF
[2024-10-23 10:33] VITALS: BP 90/60; PULSE 71; RESP 18; TEMP 36.7; O2SAT 96; BMI 26.7
--- OUTSIDE RECORDS SUMMARY | 2024-10-23 11:11 | XMS_ITS | Encounter Summary ---
Author Organization [facility] Address [address] [place] [address] Care Team Providers Care Senior Accounting Associate Name Role Phone Antonio Anton Primary Care Provider [phone] Encounter Details Date Type Department Care Team (Late st Contact Info) Description 10/06/2024 myChart Message [facility] [address] [place] [address] David Chau MD PhD [address] [place] [address] Hematology Social History Tobacco Use Types Packs/Day Years [...] on file documented as of this encounter Plan of Treatment Upcoming Encounters Date Type Department Care Team (Late st Contact Info) Description 06/10/2025 9:00 AM EDT Office Visit [facility] [address] [place] [address] David Chau MD PhD [address] [place] [address] documented as of this encounter Visit Diagnoses Not on filedocumented in this encounter Care Teams Senior Accounting Associate Relationship Specialty Start Date End Date DeseanAntonio [facility] [place] [address] PCP - General Internal Medicine 03/12/24 documented as of this encounter
--- OUTSIDE RECORDS SUMMARY | 2024-10-23 11:11 | XMS_ITS | Encounter Summary ---
Author Organization [facility] Address [address] [place] [address] Care Team Providers Care Set Off Press Operator Name Role Phone Antonio Anton Primary Care Provider [phone] Encounter Details Date Type Department Care Team (Late st Contact Info) Description 09/17/2024 Telephone [facility] [address] [place] [address] David Chau MD PhD [address] [place] [address] Social History Tobacco Use Types Packs/Day Years [...] Description 06/10/2025 9:00 AM EDT Office Visit [facility] [address] [place] [address] David Chau MD PhD [address] [place] [address] documented as of this encounter Visit Diagnoses Not on filedocumented in this encounter Care Teams Set Off Press Operator Relationship Specialty Start Date End Date DeseanAntonio montoya [address] [place] [address] PCP - General Internal Medicine 03/12/24 documented as of this encounter
--- OUTSIDE RECORDS SUMMARY | 2024-10-23 11:11 | XMS_ITS | Encounter Summary ---
Author Organization [facility] Address [address] [place] [address] Care Team Providers Care Whitesmith Name Role Phone Antonio Anton Primary Care Provider [phone] Encounter Details Date Type Department Care Team (Late st Contact Info) Description 09/17/2024 Orders Only [facility] Nuclear Medicine [address] [place] [address] Nate Lares MD [address] [place] [address] Social History Tobacco Use Types Packs/Day Years [...] Description 06/10/2025 9:00 AM EDT Office Visit [facility] [address] [place] [address] David Chau MD PhD [address] [place] [address] documented as of this encounter Visit Diagnoses Not on filedocumented in this encounter Care Teams Whitesmith Relationship Specialty Start Date End Date Antonio Anton [address] [place] [address] PCP - General Internal Medicine 03/12/24 documented as of this encounter
--- OUTSIDE RECORDS SUMMARY | 2024-10-23 11:11 | XMS_ITS | Clinical Summary ---
Author Organization [facility] Address [address] [place] [address] Care Team Providers Care Heat Treating Operator Name Role Phone Antonio Anton Primary Care Provider [phone] Allergies Active Allergy Reactions Criticality Noted Date Comments Codeine Unknown 03/12/2024 Medications aspirin 81 mg EC tablet Take 81 mg by mouth once a day. Active lisinopriL (PRINIVIL,ZESTRI L) 20 [...] VITAMINS DAILY ORAL) Take by mouth. Active carbidopa-levodo pa (SINEMET) 25-100 mg tablet Take 1 tablet by mouth 2 (two) times a day. 180 tablet 3 09/14/2024 Active Encounters Date Type Department Care Team Description 10/22/2024 9:30 AM EDT Office Visit [facility] [address] [place] [address] David Chau MD PhD 10/21/2024 myChart Message [facility] [address] [place] [address] David Chau MD PhD Labs 10/06/2024 myChart Message [facility] [address] [place] [id number] David Chau MD PhD Hematology 09/17/2024 Orders Only [facility] Nuclear Medicine [address] [place] [phone] Nate Lares MD 09/17/2024 Telephone [facility] [address] [place] [phone] David Chau MD PhD 09/08/2024 Telephone [facility] [address] [place] [phone] David Chau MD PhD 09/01/2024 Orders [facility] Nuclear Medicine [address] [place] [phone] Gabriele Cruz MD PhD 08/31/2024 myChart Message [facility] [address] [place] [phone] David Chau MD PhD follow-up 08/04/2024 Telephone [facility] [address] [place] [phone] David Chau MD PhD 08/04/2024 myChart Message [facility] [address] [place] [phone] David Chau MD PhD hoping to connect from Last 3 Months Family History Medical [...] Description 06/10/2025 9:00 AM EDT Office Visit [facility] [address] [place] [address] David Chau MD PhD [address] [place] [address] [id number] Health Maintenance Due Date Last Done Comments [...] (2 - Td or Tdap) 05/27/2024 05/27/2014 Influenza Vaccine (#1) 2024 , 11/02/2022, 11/20/2021, Additional history exists Fall Risk Screening 03/12/2025 03/12/2024 Tobacco Screening 02/25/2042 10/22/2024 Pneumococcal Vaccine: 50+ Years Completed 11/10/2014, 11/24/2012 RSV Vaccine (60+ years old and patients) Completed 01/29/2023 Hepatitis B Vaccines Aged Out No long er eligible based on patient's age to complete this topic Insurance MEDICARE [facility] Care Teams Heat Treating Operator Relationship Specialty Start Date End Date Antonio Anton [facility] [place] [address] PCP - General Internal Medicine 03/12/24
--- OUTSIDE RECORDS SUMMARY | 2024-10-23 11:11 | XMS_ITS | Encounter Summary ---
Author Organization [facility] Address [address] [place] [address] Care Team Providers Care Archeologist Classical Name Role Phone Antonio Anton Primary Care Provider [phone] Encounter Details Date Type Department Care Team (Late st Contact Info) Description 10/21/2024 myChart Message [facility] [address] [place] [address] David Chau MD PhD [address] [place] [address] Labs Social History Tobacco Use Types Packs/Day Years [...] on file documented as of this encounter Miscellaneous Notes * Telephone Encounter - Gonzalez Mitchell LPN - 10/21/2024 2:35 PM EDT Labs faxed to [facility] Hem/Onc. @ [phone] documented in this encounter Plan of Treatment Upcoming Encounters Date Type Department Care Team (Late st Contact Info) Description 06/10/2025 9:00 AM EDT Office Visit [facility] [address] [place] [address] David Chau MD PhD [address] [place], [place] [phone] documented as of this encounter Visit Diagnoses Not on filedocumented in this encounter Care Teams Archeologist Classical Relationship Specialty Start Date End Date Antonio Anton [address] [place] [id number] PCP - General Internal Medicine 03/12/24 documented as of this encounter
--- OUTSIDE RECORDS SUMMARY | 2024-10-23 11:11 | XMS_ITS | Patient Health Record ---
Author Organization [facility] Address [address] [place] [address] Care Team Providers Care Insurance Claim Approver Name Role Phone Desean EASTON, Asma Primary Care Provider Nate Crouch [phone] Allergies Allergen (clinical drug ingredient) Drug/Non Drug Allergy documented on EMR Reaction Allergy Type Onset Date Status codeine Codeine Sulfate Unknown Drug Allergy A ctive Reason For Referral No Information Medications Medication SIG (Take, Route, Frequency, Duration) Notes Start Date End Date Status Aspir-81 81 MG 1 tablet Orally Once a day Active Viagra 50 MG Orally Active Centrum Silver 1 1 Orally qd A ctive Minocycline HCl 100 MG 1 capsule Orally every 12 hrs/prn Active MiraLax - 1 packet mixed with 8 ounces of fluid Orally Once a day Active Lisinopril 40 MG 1 tablet Orally Once a day Active Simvastatin 20 MG 1 tablet in the even ing Orally Once a day Active Finacea 15 % 1 application to aff ected area Externally as directed Active Ranitidine HCl 150 MG 1 capsule at bedti me Orally Twice a day Active Carbidopa-Levodopa 25-100 MG 1 tablet Orally twice a day Active Immunizations Vaccine Route Administration Date Status Comme nts Flu vaccine no Preserv 3 and > Unknown 12/06/2015 Admin istered Social History Tobacco Use: Social History Observation Description Date Details (start date - stop date) Former Smoker NA - NA Tobacco Use/Smoking Question Answer Notes Patient is a former smoker How long has it been since you last smoked? > 10 years Alcohol Screen Question Answer Notes Did you have a drink containing alcohol in the p ast year? No Points 0 Interpretation Negative Section Notes: Nonsmoker. Few drinks per day up until 2015--none since Problems Problem Type SNOMED Code ICD Code Onset Dates Problem Status W/U Status Risk Notes Problem 631271503 Encounter for screening for malignant neoplasm of colon (Z12.11) Active confirmed Problem 898049702 Preprocedural examination (Z01.818) Active confirmed Problem 591570323 Aspirin long-ter m use (Z79.82) Active confirmed Problem 08961780 Dysphagia, unspecified type (R13.10) Active confirmed Plan Of Treatment Future Test Test Name Order Date COLONOSCOPY 11/14/2016 Insurance Providers Payer Name Payer Address Payer Phone Subscriber Number Group Number Insured Name Patient Relationship to Insured Coverage Start Date Coverage End Date MEDICARE OF [place] [address] [place] [place] [address] [phone] [id number] MIGUEL A EDUARDO Self - patient is the insured [facility] [address] [place] [phone] [id number] MIGUEL A EDUARDO Self - patient is the insured Medical (General) History Medical History History ICD Code Hypertension GERD Denies UT,DM,CVA,Lung disease,renal dise ase Early onset of Parkinson's in 02/2016 Hyperlipidemia Acne rosacea Blood clot in right lower leg > 5 yrs ag o Neg. screening colonoscopy in 2005 Surgical History Surgery Date(Month/Year) Cyst removal behind the left ear
--- OUTSIDE RECORDS SUMMARY | 2024-10-23 11:11 | XMS_ITS | Patient Health Record ---
[facility] jennifer Roberts Address [address] [facility] [address] Care Team Providers Care Boiler Inspector Name Role Phone Desean E[facility], [facility] Primary Care Provider Noa Pereira Unavailable [phone] Allergies Allergen (clinical drug ingredient) Drug/Non Drug Allergy documented on EMR Reaction Allergy Type Onset Date Status codeine Codeine Unknown Drug Allergy Active Reason For Referral No Information Medications Medication SIG (Take, Route, Frequency, Duration) Notes Start Date End Date Status Lisinopril 20 MG Oral; Duration: 90 Active Multi For Him Active Minocycline HCl 100 MG Oral; Duration: 90 Active Simvastatin 20 MG 1 tablet in the even ing Orally Once a day; Duration: 30 day(s) Active QUEtiapine Fumarate 50 MG Oral; Duration: 90 75 mg Active risperiDONE ER Not-T aking Nuplazid Active Aspirin Low Dose 81 MG 1 tablet Orally O nce a day; Duration: 30 day(s) Active Carbidopa-Levodopa 25-100 MG Oral; Duration: 90 Active Immunizations Vaccine Route Administration Date Status Comme nts Influenza Unknown 11/24/2020 Administered Influenza Unknown 11/26/2023 Administered COVID-19 Moderna Vaccine Unknown 12/21/2020 Administered 1st 04/21/20 2nd 05/19/20 Social History Tobacco Use: Social History Observation [...] W/U Status Risk Notes Problem Atherosclerosis of [place] artery of both lower extremities, with unspecified presence of clinical manifestation (I70.203) Active confirmed Q7(A), Q8(2B), Q9(1B,2C) Vital Signs Blood pressure diastolic 65 mm Hg 09/16/2024 Height 6ft in 09/16/2024 Blood pressure systolic 115 mm Hg 09/16/2024 Weight 207 lbs 09/16/2024 BMI 28.07 kg/m2 09/16/2024 Procedures Procedure Date Ordered Date Performed Result Body Sit e 63319-HUCDPHV NAIL, 6 OR MORE 01/22/2024 N/A 83233-DKHA SKIN LESIONS, 2 TO 4 01/22/2024 N/A 39431-WKSWBZO NAIL, 6 OR MORE 06/11/2024 N/A 96519-TVYW SKIN LESIONS, 2 TO 4 06/11/2024 N/A 50192-HSOQYHL NAIL, 6 OR MORE 09/16/2024 N/A 47982-WVGR SKIN LESIONS, 2 TO 4 09/16/2024 N/A Encounters Encounter Location Date Provider Diagnosis [address] [address] 01/22/2024 Noa Crooks Atherosclerosis of gila river artery of both lower extremities, with unspecified presence of clinical manifestation I70.203 ; Tinea unguium B35.1 ; Pain in right toe(s) M79.674 ; Pain in left toe(s) M79.675 and Parkinson's disease, unspecified whether dyskinesia present, unspecified whether manifestations fluctuate G20.A1 [address] [address] 06/11/2024 Noa Crooks Atherosclerosis of gila river artery of both lower extremities, with unspecified presence of clinical manifestation I70.203 ; Tinea unguium B35.1 ; Pain in right toe(s) M79.674 and Pain in left toe(s) M79.[address] [address] 09/16/2024 Noa Crooks Atherosclerosis of gila river artery of both lower extremities, with unspecified presence of clinical manifestation I70.203 ; Tinea unguium B35.1 ; Pain in right toe(s) M79.674 and Pain in left toe(s) M79.675 Assessments Encounter Date Diagnosis (ICD Code) Assessment Notes Treatment Notes Treatment Clinical Notes Section Notes 01/22/2024 Atherosclerosis of gila river artery of both lower extremities, with unspecified presence of clinical manifestation (ICD-10 - I70.203) Q7(A), Q8(2B), Q9(1B,2C) 06/11/2024 Atherosclerosis of gila river artery of both lower extremities, with unspecified presence of clinical manifestation (ICD-10 - I70.203) Q7(A), Q8(2B), Q9(1B,2C) 09/16/2024 Atherosclerosis of gila river artery of both lower extremities, with unspecified presence of clinical manifestation (ICD-10 - I70.203) Q7(A), Q8(2B), Q9(1B,2C) 09/16/2024 Tinea unguium (ICD-10 - B35.1) 06/11/2024 Tinea unguium (ICD-10 - B35.1) 01/22/2024 Tinea unguium (ICD-10 - B35.1) 01/22/2024 Pain in right toe(s) (ICD-10 - M79.674) 06/11/2024 Pain in right toe(s) (ICD-10 - M79.674) 09/16/2024 Pain in right toe(s) (ICD-10 - M79.674) 06/11/2024 Pain in left toe(s) (ICD-10 - M79.675) 09/16/2024 Pain in left toe(s) (ICD-10 - M79.675) 01/22/2024 Pain in left toe(s) (ICD-10 - M79.675) 01/22/2024 Parkinson's disease, unspecified whether dyskinesia present, unspecified whether manifestations fluctuate (ICD-10 - G20.A1) Plan Of Treatment Pending Test Test Name Order Date [id number] NAIL, 6 OR MORE 01/22/2024 [id number] NAIL, 6 OR MORE 06/11/2024 49595-OMPFVFA NAIL, 6 OR MORE 09/16/2024 05728-NADT SKIN LESIONS, 2 TO 4 09/17/19 25 02755-YAXS SKIN LESIONS, 2 TO 4 06/12/19 25 55605-CFBA SKIN LESIONS, 2 TO 4 01/22/20 24 Next Appt Details Provider Name:Noa sylvestre, 12/23/2024 09:00:00 AM, [address] [place], [address], Insurance Providers Payer Name Payer Address Payer Phone Subscriber Number Group Number Insured Name Patient Relationship to Insured Coverage Start Date Coverage End Date Medicare National Govt [facility] [address] [place] [address] [id number] Guilherme Chicas Self - patient is the insured [facility] [address] [place] [address] [phone] [id number] Guilherme Chicas Self - patient is the insured Medical (General) History Medical History History ICD Code Broken bones CAD (Cholesterol) Cataracts High blood pressure Parkinsons disease Warts Surgical History Surgery Date(Month/Year)
--- OUTSIDE RECORDS SUMMARY | 2024-10-23 11:11 | XMS_ITS | Encounter Summary ---
Author Organization [facility] Address [address] [place] [address] Care Team Providers Care Certified Flex Endoscope Reprocessor Name Role Phone Antonio Anton Primary Care Provider [phone] Encounter Details Date Type Department Care Team (Late st Contact Info) Description 09/01/2024 Orders Only [facility] Nuclear Medicine [address] [place] [address] Gabriele Caceres MD PhD [address] [place] [address] Social History Tobacco Use Types Packs/Day Years [...] Description 06/10/2025 9:00 AM EDT Office Visit [facility] [address] [place] [address] David Chau MD PhD [address] [place] [address] documented as of this encounter Visit Diagnoses Not on filedocumented in this encounter Care Teams Certified Flex Endoscope Reprocessor Relationship Specialty Start Date End Date Antonio Anton [address] [place] [address] PCP - General Internal Medicine 03/12/24 documented as of this encounter
== END 2024-10-23 10:59 | disposition home or self-care (01) ==
LOC: HO.HMCC 10:31
PROVIDERS: PCP Internal Medicine; Visit Provider Internal Medicine
DX: R49.0 Dysphonia (principal); F22 Delusional disorders; G20.B2 Parkinson's disease with dyskinesia, with fluctuations; K21.9 Gastro-esophageal reflux disease without esophagitis; I10 Essential (primary) hypertension; E78.9 Disorder of lipoprotein metabolism, unspecified; R73.01 Impaired fasting glucose

== ENCOUNTER → 2024-10-23 10:31 | Outpatient (BNVA) | payer MEDICARE, OTHER, SELFPAY | PROVIDERS: PCP Internal Medicine; Visit Provider Internal Medicine | DX: I10 Essential (primary) hypertension (principal); E78.9 Disorder of lipoprotein metabolism, unspecified; G20.B2 Parkinson's disease with dyskinesia, with fluctuations; F22 Delusional disorders; N52.9 Male erectile dysfunction, unspecified; R73.01 Impaired fasting glucose; N52.1 Erectile dysfunction due to diseases classified elsewhere; R49.0 Dysphonia; K21.9 Gastro-esophageal reflux disease without esophagitis | CPT/HCPCS: 99212 ==

== ENCOUNTER 2024-12-04 08:19 | Outpatient (AMB) | payer MEDICARE, OTHER, SELFPAY ==
--- NOTE | 2024-12-04 08:06 | MHC.OFFVIS ---
Intake Visit Reasons: 1y/PVR Intake Note: patient presents today for: 1yr follow up urology medications: sildenafil blood thinners: aspirin Drivability Technician Required: No Accompanied by: Self / Same As Patient Allergies codeine Allergy (Unknown, Verified 12/04/24 08:08) does not remember it happened when pt was a child HPI Comments Details: Guilherme is a pleasant male. He is a patient of Dr. Anton. He is seen for the following urologic conditions - erectile dysfunction Yearly follow-up PSA 07/19 2.2 Discussed urinary function in setting of neurologic disease Erectile dysfunction Progressive Has medications Background of Parkinson's He may go ahead since he has adequate physical activity One year follow-up [facility] Medical History Parkinson's disease without dyskinesia or fluctuating manifestations Mass of Neck Impaired fasting blood sugar Low hemoglobin Hemorrhoids Constipation by delayed colonic transit Parkinsons disease Chronic GERD Erectile dysfunction Hypertension, essential Lipid disorder Surgical History History of removal of cyst (~1999) History of colonoscopy Family History Father History of heart attack Mother Diabetes mellitus Maternal Grandfather History of lung cancer Maternal Grandmother No problems noted. Paternal Grandfather No problems noted. Paternal Grandmother No problems noted. Maternal Aunt No problems noted. Paternal Aunt No problems noted. Maternal Uncle No problems noted. Paternal Uncle No problems noted. Sister No problems noted. Son No problems noted. Daughter History of thyroid cancer Daughter No problems noted. Social History Housing: House Alcohol intake: former Patient Tobacco Use Status: Former Tobacco user (50 years ago ) e-Cigarette/Vaping Use: Never Used service: No Current occupational status: retired Cognitive needs: No Hearing needs: No Vision needs: Yes Review of Systems Const Denies chills and Denies fever(s) Card Reports no additional complaints and Denies syncope Resp Denies cough GI Denies abdominal pain and Denies heartburn Reports as per HPI and Denies change in libido Neuro Denies syncope Psych Denies change in libido Endo Denies change in libido Physical Exam Const General: cooperative, healthy appearing, comfortable and no acute distress Orientation/consciousness: patient oriented x3 HEENT Face and sinus: Yes normal facial exam Mouth: moist mucous membranes Neck Neck: Yes normal visual inspection, Yes full ROM and Yes trachea midline Chest Chest palpation & inspection: normal inspection of the chest Resp Effort & Inspection: normal respiratory effort, able to speak in complete sentences and no respiratory distress GI Inspection: Yes normal to inspection Back/Spine/Pelvis Cervical Spine: normal cervical lordosis Thoracic/Lumbar Spine: thoracic and lumbar spine normal to inspection Skin General skin exam: no rashes or lesions noted Neuro General: patient oriented x3, gait normal, tone normal and moves all extremities Extrem General: Yes normal to inspection and Yes capillary refill normal Assessment & Plan Assessment & Plan (1) Erectile dysfunction: Comment: Management through Urology Code(s): N52.9 - Male erectile dysfunction, unspecified Category: Medical Qualifiers: Erectile dysfunction type: due to other cause Qualified Code(s): N52.8 - Other male erectile dysfunction Plan Twelve month follow-up Medications: Refilled sildenafil administer 30 minutes to 4 hours before activity - garvey patient [id number] [facility] [id number] Member [id number] 100 mg PO ONCE PRN 30 tabs 0RF ED 30 days N52.1 - Erectile dysfunction due to diseases classified elsewhere Patient Instructions: This note is constructed using voice recognition software. While every effort has been made to ensure accuracy culinary arts instructor errors may have been included. Imaging studies, laboratory and physical exam results were discussed and reviewed in detail. No major barriers to patient understanding were identified. An opportunity to ask questions regarding the treatment plan was provided. All questions were answered. The patient expressed understanding and agreement with the above treatment plan. The patient is aware they should contact our office by phone for worsening of their current condition or the appearance of new urologic symptoms. Compliance is encouraged with any medications and followup testing that is ordered. It is a privilege to participate in the urologic care of your patient. If you have any questions or concerns regarding treatment for the above conditions, or other urologic issues, please do not hesitate to contact me. The office telephone contact is [phone]. Sincerely, Dr Collin Taylor MD, SK[facility] - Urology Compassionate Specialist Care for the Genitourinary System Coding Level of Care Code Est Pt Level 4 (26232) Complex EM visit Add On G2211 Diagnoses Other male erectile dysfunction N52.8 Erectile dysfunction type: due to other cause
--- OUTSIDE RECORDS SUMMARY | 2024-12-04 08:24 | XMS_ITS | Encounter Summary ---
Author Organization [facility] Address [address] [place] [address] Care Team Providers Care Assistant Purchasing Manager Name Role Phone Antonio Anton Primary Care Provider [phone] Encounter Details Date Type Department Care Team (Late st Contact Info) Description 09/17/2024 Orders Only [facility] Nuclear Medicine [address] [place] [address] Nate Lares MD [address] [place] [address] Social History Tobacco Use Types Packs/Day Years [...] Description 06/10/2025 9:00 AM EDT Office Visit [facility] [address] [place] [address] David Chau MD PhD [address] [place] [address] documented as of this encounter Visit Diagnoses Not on filedocumented in this encounter Care Teams Assistant Purchasing Manager Relationship Specialty Start Date End Date Antonio Anton [address] [place] [address] PCP - General Internal Medicine 03/12/24 documented as of this encounter
--- OUTSIDE RECORDS SUMMARY | 2024-12-04 08:25 | XMS_ITS | Encounter Summary ---
Author Organization [facility] Address [address] [place] [address] Care Team Providers Care Copy Messenger Name Role Phone Antonio Anton Primary Care Provider Encounter Details Date Type Department Care Team (Late st Contact Info) Description 09/01/2024 Orders Only [facility] Nuclear Medicine [address] [place] [address] Gabriele Caceres MD PhD [address] [place] [address] Social History Tobacco Use Types Packs/Day Years [...] Description 06/10/2025 9:00 AM EDT Office Visit [facility] [address] [place] [address] David Chau MD PhD [address] [place] [address] documented as of this encounter Visit Diagnoses Not on filedocumented in this encounter Care Teams Copy Messenger Relationship Specialty Start Date End Date Antonio Anton [address] [place] [address] PCP - General Internal Medicine 03/12/24 documented as of this encounter
--- OUTSIDE RECORDS SUMMARY | 2024-12-04 08:25 | XMS_ITS | Encounter Summary ---
Author Organization [facility] Address [address] [place] [address] Care Team Providers Care Supervisor Fiberglass Boat Assembly Name Role Phone Antonio Anton Primary Care Provider [phone] Encounter Details Date Type Department Care Team (Late st Contact Info) Description 11/19/2024 myChart Message [facility]rology Clinic [address] [place] [address] David Chau MD PhD [address] [place] [address] [employer] Social History Tobacco Use Types Packs/Day Years [...] Description 06/10/2025 9:00 AM EDT Office Visit [facility] [address] [place] [phone] David Chau MD PhD [address] [place] [address] documented as of this encounter Visit Diagnoses Not on filedocumented in this encounter Care Teams Supervisor [employer] Boat [employer] Relationship Specialty Start Date End Date Desean Antonio [facility] [address] PCP - General Internal Medicine 03/12/24 documented as of this encounter
--- OUTSIDE RECORDS SUMMARY | 2024-12-04 08:25 | XMS_ITS | Clinical Summary ---
Author Organization [facility] Address [address] [place] [address] Care Team Providers Care Credit Specialist Name Role Phone Antonio Anton Primary Care Provider [phone] Allergies Active Allergy Reactions Criticality Noted Date [...] Encounters Date Type Department Care Team Description 12/03/2024 [employer] Message [facility] [address] [place] [address] David Chau MD PhD [employer] 11/19/2024 [employer] Message [facility] [address] [place] [address] David Chau MD PhD [employer] 10/22/2024 9:30 AM EDT Office Visit [facility] [address] [place] [address] David Chau MD PhD Parkinsonism, unspecified Parkinsonism type (HCC) (Primary Dx) 10/21/2024 myChart Message [facility] [address] [place] [address] David Chau MD PhD Labs 10/06/2024 myChart Message [facility] [address] [place] [address] David Chau MD PhD Hematology 09/17/2024 Orders Only [facility] Nuclear Medicine [address] [place] [address] Nate Lares MD 09/17/2024 Telephone [facility] [address] [place] [address] David Chau MD PhD 09/08/2024 Telephone [facility] [address] [place] [phone] David Chau MD PhD from Last 3 Months Family History Medical [...] Description 06/10/2025 9:00 AM EDT Office Visit [facility] [address] [place] [address] David Chau MD PhD [address] [place] [address] Health Maintenance Due Date Last Done Comments Hepatitis C Screening 1945 Medicare AWV 05/22/1947 CT Lung Cancer Screening (Baseline) 1996 Zoster Vaccines (2 of 3) 02/19/2013 12/25/2012 Alcohol/Substance Use Screening 02/26/2024 Depression Screening and Follow-Up 02/26/2024 Health Care Proxy Review 02/26/2024 Social Drivers of Health Annual Screening 02/26/2024 DTaP,Tdap,and Td Vaccines (2 - Td or Tdap) 05/27/2024 05/27/2014 COVID-19 Vaccine ( season) 2024 11/03/2023, 05/10/2023, 12/04/2022, Additional history exists Influenza Vaccine (#1) 2024 , 11/02/2022, 11/20/2021, Additional history exists Fall Risk Screening 03/12/2025 03/12/2024 Tobacco Screening 02/25/2042 10/22/2024 Pneumococcal Vaccine: 50+ Years Completed 11/10/2014, 11/24/2012 RSV Vaccine (60+ years old and patients) Completed 01/29/2023 Hepatitis B Vaccines Aged Out No long er eligible based on patient's age to complete this topic Insurance MEDICARE [facility] Care Teams Credit Specialist Relationship Specialty Start Date End Date Antonio Anton [address] [place] [address] PCP - General Internal Medicine 03/12/24
--- OUTSIDE RECORDS SUMMARY | 2024-12-04 08:25 | XMS_ITS | Encounter Summary ---
Author Organization [facility] Address [address] [place] [address] Care Team Providers Care Restorative Rehab Aide Name Role Phone Antonio Anton Primary Care Provider [phone] Encounter Details Date Type Department Care Team (Late st Contact Info) Description 12/03/2024 myChart Message [facility] [address] [place] [address] David Chau MD PhD [address] [place] [address] [employer] Social History Tobacco Use Types Packs/Day [...] Description 06/10/2025 9:00 AM EDT Office Visit [facility] [address] [place] [address] David Chau MD PhD [address] [place] [address] documented as of this encounter Visit Diagnoses Not on filedocumented in this encounter Care Teams Restorative Rehab Aide Relationship Specialty Start Date End Date Desean Antonio [facility] [place] [address] PCP - General Internal Medicine 03/12/24 documented as of this encounter
== END 2024-12-04 08:56 | disposition home or self-care (01) ==
LOC: HO.HUSH 08:20
PROVIDERS: PCP Internal Medicine; Visit Provider Urology
DX: N52.8 Other male erectile dysfunction (principal)
CPT/HCPCS: 99214; G2211

== ENCOUNTER → 2024-12-04 08:19 | Outpatient (BNVA) | payer MEDICARE, OTHER, SELFPAY | PROVIDERS: PCP Internal Medicine; Visit Provider Urology | DX: N52.8 Other male erectile dysfunction (principal) | CPT/HCPCS: 99212 ==

== ENCOUNTER 2025-01-01 13:37 | Outpatient (AMB) | payer MEDICARE, OTHER, SELFPAY ==
[2025-01-01 13:40] VITALS: BP 122/72; PULSE 72; O2SAT 97; BMI 27.7
--- NOTE | 2025-01-01 13:40 | A.OFFPC_ITS ---
Vital Signs 01/01/25 13:40 Height 6 ft Weight 204 lb BMI 27.7 BP 122/72 Blood Pressure Location Lt brachial Position Sitting Pulse 72 Pulse Source Pulse Oximeter Pulse Oximetry (%) 97 Intake Visit Reasons: 2m follow Allergies codeine Allergy (Unknown, Verified 01/01/25 13:40) does not remember it happened when pt was a child Medication List - Last Reconciled 01/01/25 by Antonio Anton MD aspirin (Adult Low Dose Aspirin) 81 mg PO DAILY carbidopa-levodopa 25-100 mg 1 tab PO BID lisinopril 10 mg PO DAILY 90 days minocycline mg PO DAILY multivitamin (Daily Multi-Vitamin tablet) 1 tab PO DAILY pantoprazole 40 mg PO DAILY sildenafil 100 mg PO ONCE PRN 30 days simvastatin 20 mg PO DAILY 90 days Tobacco use date assessed: 10/23/24 Fall risk assessment: No Falls in past year Last assessed Fall Risk: 01/01/25 Dental Screening Dental Screen Date: 10/23/24 HPI 2m follow HPI Details History of Present Illness The patient is a 79-year-old male presenting for a follow-up appointment. Hypotension: - The patient has been monitoring his bl ood pressure at home and presented with his log. - He discontinued lisinopril after his l ast visit. - His blood pressure readings have been good, with a high of 136 mmHg systolic and low of 72 mmHg diastolic, but have also been low, with readings of 98/61 mmHg and 98/65 mmHg noted. - The patient denies feeling dizzy or li ghtheaded. Parkinson's Disease: - The patient was diagnosed with a mild case of Parkinson's disease by a [facility] physician. - He has reduced his carbidopa/levodopa dose from 4 pills to 2 pills. - The patient has also stopped taking ne placid. - He reports feeling better and more con fident, and now walks daily. Dysphonia: - The patient reports that pantoprazole has been working well for his voice. - He also notes it has stopped his rhino rrhea. Hyperlipidemia: - The patient is taking simvastatin for cholesterol management. 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 - He was able to obtain parts for his [employer] aid online and is in good shape for now. Medical History: - Mild Parkinson's disease, diagnosed by a specialist. Medications: - Pantoprazole for dysphonia. - Simvastatin. - Carbidopa/levodopa, dose recently redu glen from 4 to 2 pills. - Discontinued lisinopril. . Social History: - Activity: The patient reports walking every day and feels more confident with walking since adjusting his Parkinson's medication. - Functional Status: He denies the need for a cane. Problem List - Hypotension - Mild Parkinson's disease - hoarseness of voice - Hyperlipidemia - Hearing impairment Plan - Hypotension: Lisinopril discontinued. - Will advise the patient to maintain go od hydration to help manage his low blood pressure. - Dysphonia: Refill pantoprazole and adv ise the patient to continue taking it. - Hyperlipidemia: A refill for simvastat in was sent to the pharmacy. - Labs: An order has been placed for fas ting blood tests to check kidney function, liver function, cholesterol, vitamins, and thyroid levels. - Follow-up: The patient will return for a follow-up appointment at the end of March to review lab results. Review of Systems - General: No fever no chills - Neurological: No headaches no dizziness - Ear nose throat: No sore throat no hearing difficulty no ear pain - Cardiovascular: No syncope, no chest pain, no palpitations - Gastrointestinal: No nausea vomiting or diarrhea - Endocrine: No polyuria polydipsia no heat intolerance - Genitourinary: No dysuria , no blood in urine Physical Exam - General: No acute distress - HEENT: No acute findings - Neck: Supple - Respiratory system: Able to talk in f ull sentences, no audible wheeze - Cardiovascular: S1-S2 regular in rate and rhythm - Gastrointestinal: No pain - Extremities: No new findings - ASSOCIATE PROFESSOR OF THEOLOGY: Alert awake oriented x3 motor in tact - Skin: Normal turgor [facility] Medical History Parkinson's disease without dyskinesia or fluctuating manifestations Mass of Neck Impaired fasting blood sugar Low hemoglobin Hemorrhoids Constipation by delayed colonic transit Parkinsons disease Chronic GERD Erectile dysfunction Hypertension, essential Lipid disorder Surgical History History of removal of cyst (~1999) History of colonoscopy Family History Father History of heart attack Mother Diabetes mellitus Maternal Grandfather History of lung cancer Maternal Grandmother No problems noted. Paternal Grandfather No problems noted. Paternal Grandmother No problems noted. Maternal Aunt No problems noted. Paternal Aunt No problems noted. Maternal Uncle No problems noted. Paternal Uncle No problems noted. Sister No problems noted. Son No problems noted. Daughter History of thyroid cancer Daughter No problems noted. Social History Housing: House Alcohol intake: former Patient Tobacco Use Status: Former Tobacco user (50 years ago ) e-Cigarette/Vaping Use: Never Used service: No Current occupational status: retired Cognitive needs: No Hearing needs: No Vision needs: Yes Questionnaire Thrive Questionnaire Date Thrive assessed: 03/05/24 I am a: Patient What is your living situation today?: I have a steady place to live Within the past 12 months, did the food you bought not last and you didn't have the money to get more?: Never true Within the past 12 months, did you worry whether your food would run out before you got money to buy more?: Never true Do you have trouble paying for medicines?: No Do you have trouble getting transportation to medical appointments?: No Do you have trouble paying your heating and electricity bill?: No Do you have trouble taking care of your child, family member or friend?: No Do you have trouble with day-to-day activities such as bathing, preparing meals, shopping, managing finances, etc.?: No Are you currently unemployed and looking for a job?: No Are you interested in more education?: No Please select the resources that you would like help with: None Currently or been in a relationship where the following occur: No concerns reported THRIVE Score: 0 RADHA-7 AMB Questionnaire RADHA-7 Date RADHA - 7 assessed: 03/11/24 Source: Developed by Drs. Nate Burgos, Rosalinda Bay, Junior Acosta and colleagues, with an educational sharron from [employer]. Physical exam (Primary Care) Vital Signs: Last Vital Signs Pulse 72 01/01/25 13:40 BP 122/72 01/01/25 13:40 Pulse Ox 97 01/01/25 13:40 BMI result Body Mass Index 27.7 Tobacco/Smoking Status: Tobacco use Status Tobacco use date assessed 10/23/24 01/01/25 13:41 Patient Tobacco Use Status Former Tobacco user (50 01/01/25 13:41 years ago ) e-Cigarette/Vaping Use Never Used 01/01/25 13:41 Thrive Assessment: Date of Thrive Assessment Date Thrive assessed 03/05/24 01/01/25 13:41 Currently or been in a relationship where the following occur: No concerns re ported Coding Level of Care Code Est Pt Level 4 (15213) Complex EM visit Add On G2211 Diagnoses Hypertension, essential I10 Lipid disorder E78.9 Impaired fasting blood sugar R73.01 Chronic GERD K21.9 Hoarseness of voice R49.0 Parkinsons disease G20 Delusional disorder F22 Assessment & Plan Assessment & Plan (1) Hypertension, essential: Code(s): I10 - Essential (primary) hypertension Category: Medical (2) Lipid disorder: Code(s): E78.9 - Disorder of lipoprotein metabolism, unspecified Category: Medical (3) Impaired fasting blood sugar: Comment: Diet-controlled Code(s): R73.01 - Impaired fasting glucose Category: Medical (4) Chronic GERD: Code(s): K21.9 - Gastro-esophageal reflux disease without esophagitis Category: Medical (5) Hoarseness of voice: Code(s): R49.0 - Dysphonia Category: Medical (6) Parkinsons disease: Code(s): G20 - Parkinson's disease Category: Medical (7) Delusional disorder: Code(s): F22 - Delusional disorders Category: Medical Plan Hypotension: - The patient has been monitoring his blood pressure at home and presented with his log. - He discontinued lisinopril after his last visit. - His blood pressure readings have been good, with a high of 136 mmHg systolic and low of 72 mmHg diastolic, but have also been low, with readings of 98/61 mmHg and 98/65 mmHg noted. - The patient denies feeling dizzy or lightheaded. Parkinson's Disease: - The patient was diagnosed with a mild case of Parkinson's disease by a [facility] physician. - He has reduced his carbidopa/levodopa dose from 4 pills to 2 pills. - The patient has also stopped taking neplacid. - He reports feeling better and more confident, and now walks daily. Dysphonia: - The patient reports that pantoprazole has been working well for his voice. - He also notes it has stopped his rhinorrhea. Hyperlipidemia: - The patient is taking simvastatin for cholesterol management. 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 - He was able to obtain parts for his hearing aid online and is in good shape for now. Medical History: - Mild Parkinson's disease, diagnosed by a specialist. Medications: - Pantoprazole for dysphonia. - Simvastatin. - Carbidopa/levodopa, dose recently reduced from 4 to 2 pills. - Discontinued lisinopril. . Social History: - Activity: The patient reports walking every day and feels more confident with walking since adjusting his Parkinson's medication. - Functional Status: He denies the need for a cane. Problem List - Hypotension - Mild Parkinson's disease - hoarseness of voice - Hyperlipidemia - Hearing impairment Plan - Hypotension: Lisinopril discontinued. - Will advise the patient to maintain good hydration to help manage his low blood pressure. - Dysphonia: Refill pantoprazole and advise the patient to continue taking it. - Hyperlipidemia: A refill for simvastatin was sent to the pharmacy. - Labs: An order has been placed for fasting blood tests to check kidney function, liver function, cholesterol, vitamins, and thyroid levels. - Follow-up: The patient will return for a follow-up appointment at the end of March to review lab results. Orders: Orders TSH reflex Free T4 Today E78.9 - Disorder of lipoprotein metabolism, unspecified, G20.B2 - Parkinson's disease with dyskinesia, with fluctuations, I10 - Essential (primary) hypertension, K21.9 - Gastro-esophageal reflux disease without esophagitis, R49.0 - Dysphonia, R73.01 - Impaired fasting glucose Complete Blood Count Auto Diff Today E78.9 - Disorder of lipoprotein metabolism, unspecified, G20.B2 - Parkinson's disease with dyskinesia, with fluctuations, I10 - Essential (primary) hypertension, K21.9 - Gastro-esophageal reflux disease without esophagitis, R49.0 - Dysphonia, R73.01 - Impaired fasting glucose Comprehensive Tillman. Panel Fast Today E78.9 - Disorder of lipoprotein metabolism, unspecified, G20.B2 - Parkinson's disease with dyskinesia, with fluctuations, I10 - Essential (primary) hypertension, K21.9 - Gastro-esophageal reflux disease without esophagitis, R49.0 - Dysphonia, R73.01 - Impaired fasting glucose Lipid Panel Today E78.9 - Disorder of lipoprotein metabolism, unspecified, G20.B2 - Parkinson's disease with dyskinesia, with fluctuations, I10 - Essential (primary) hypertension, K21.9 - Gastro-esophageal reflux disease without esophagitis, R49.0 - Dysphonia, R73.01 - Impaired fasting glucose Vitamin D 25-OH (D2 and D3) Today E78.9 - Disorder of lipoprotein metabolism, unspecified, G20.B2 - Parkinson's disease with dyskinesia, with fluctuations, I10 - Essential (primary) hypertension, K21.9 - Gastro-esophageal reflux disease without esophagitis, R49.0 - Dysphonia, R73.01 - Impaired fasting glucose Vitamin B12 Today E78.9 - Disorder of lipoprotein metabolism, unspecified, G20.B2 - Parkinson's disease with dyskinesia, with fluctuations, I10 - Essential (primary) hypertension, K21.9 - Gastro-esophageal reflux disease without e sophagitis, R49.0 - Dysphonia, R73.01 - Impaired fasting glucose Medications: Refilled pantoprazole 40 mg PO DAILY 90 tabs 0RF simvastatin 20 mg PO DAILY 90 tabs 0RF 90 days
--- OUTSIDE RECORDS SUMMARY | 2025-01-01 15:43 | XMS_ITS | Encounter Summary ---
Author Organization [facility] Address [address] [place] [address] Care Team Providers Care Pugger Helper Name Role Phone Antonio Anton Primary Care Provider [phone] Encounter Details Date Type Department Care Team (Late st Contact Info) Description 09/17/2024 Orders Only [facility] Medicine [address] [place] [address] Nate Lares MD [address] [place] [address] Social History Tobacco Use Types Packs/Day Years [...] Description 06/10/2025 9:00 AM EDT Office Visit [facility] Neurology Clinic [address] [place] [address] David Chau MD PhD [address] [place] [address] documented as of this encounter Visit Diagnoses Not on filedocumented in this encounter Care Teams Pugger Helper Relationship Specialty Start Date End Date Antonio Anton [address] [place] [address] PCP - General Internal Medicine 03/12/24 documented as of this encounter
--- OUTSIDE RECORDS SUMMARY | 2025-01-01 15:43 | XMS_ITS | Encounter Summary ---
Author Organization [facility] Address [address] [place] [address] Care Team Providers Care Clinical Pharmacologist Name Role Phone Antonio Anton Primary Care Provider [phone] Encounter Details Date Type Department Care Team (Late st Contact Info) Description 12/22/2024 Orders Only [facility] Neurology Clinic [address] [place] [address] ProviderOrlando MD [address] [place] [id number] Social History Tobacco Use Types Packs/Day Years [...] Description 06/10/2025 9:00 AM EDT Office Visit [facility] Neurology Clinic [address] [place], [place] [phone] David Chau MD PhD [address] [place] [address] documented as of this encounter Procedures * Due to [place] state law, this organization might not be sharing negative HIV tests. Procedure Name Priority Date/Time Associated Diagnosis Comments AMB EXTERNAL MRI BRAIN, OUTSIDE RESULT Routine 11/05/2024 9:03 AM EDT documented in this encounter Results * Due to [place] state law, this organization might not be sharing negative HIV tests. * MRI Brain, Outside Result (11/05/2024 9:03 AM EDT) Anatomical Region Laterality Modality Other us Unknown Provider MD CUNHA EXTERNAL RESULT PROCEDUR ES Final Result documented in this encounter Visit Diagnoses Not on filedocumented in this encounter Care Teams Clinical Pharmacologist Relationship Specialty Start Date End Date Antonio Anton [address] [place] [id number] PCP - General Internal Medicine 03/12/24 documented as of this encounter
--- OUTSIDE RECORDS SUMMARY | 2025-01-01 15:43 | XMS_ITS | Encounter Summary ---
Author Organization [facility] Address [address] [place] [address] Care Team Providers Care Entry Level Marketing Representative Name Role Phone Antonio Anton Primary Care Provider [phone] Encounter Details Date Type Department Care Team (Late st Contact Info) Description 12/08/2024 myChart Message [facility] Neurology Clinic [address] [place] [phone] David Chau MD PhD [address] [place] [phone] Report Social History Tobacco Use Types Packs/Day Years [...] encounter Miscellaneous Notes * Telephone Encounter - David Chau MD PhD - 12/22/2024 4:53 PM EDT g documented in this encounter Plan of Treatment Upcoming Encounters Date Type Department Care Team (Late st Contact Info) Description 06/10/2025 9:00 AM EDT Office Visit [facility] Neurology Clinic [address] [place] [id number] David Chau MD PhD [address] [place] [address] documented as of this encounter Visit Diagnoses Not on filedocumented in this encounter Care Teams Entry Level Marketing Representative Relationship Specialty Start Date End Date Antonio Anton [address] [place] [id number] PCP - General Internal Medicine 03/12/24 documented as of this encounter
--- OUTSIDE RECORDS SUMMARY | 2025-01-01 15:43 | XMS_ITS | Encounter Summary ---
Author Organization [facility] Address [address] [place] [address] Care Team Providers Care Log Washer Name Role Phone Antonio Anton Primary Care Provider [phone] Encounter Details Date Type Department Care Team (Late st Contact Info) Description 09/01/2024 Orders Only [facility] Nuclear Medicine [address] [place] [address] Gabriele Caceres MD PhD [address] [place] [address] Social History Tobacco Use Types Packs/Day Years [...] Description 06/10/2025 9:00 AM EDT Office Visit [facility] Neurology Clinic [address] [place] [address] David Chau MD PhD [address] [place] [address] documented as of this encounter Visit Diagnoses Not on filedocumented in this encounter Care Teams Log Washer Relationship Specialty Start Date End Date Antonio Anton [address] [place] [address] PCP - General Internal Medicine 03/12/24 documented as of this encounter
--- OUTSIDE RECORDS SUMMARY | 2025-01-01 15:43 | XMS_ITS | Encounter Summary ---
Author Organization [facility] Address [address] [place] [address] Care Team Providers Care Dryland Farmer Name Role Phone Antonio Anton Primary Care Provider [phone] Encounter Details Date Type Department Care Team (Late st Contact Info) Description 12/03/2024 myChart Message [facility] Neurology Clinic [address] [place] [phone] David Chau MD PhD [address] [place] [address] [employer] Social History Tobacco Use Types Packs/Day [...] Description 06/10/2025 9:00 AM EDT Office Visit [facility] Neurology Clinic [address] [place] [phone] David Chau MD PhD [address] [place] [address] documented as of this encounter Visit Diagnoses Not on filedocumented in this encounter Care Teams Dryland Farmer Relationship Specialty Start Date End Date Desean Antonio [facility] [place] [address] PCP - General Internal Medicine 03/12/24 documented as of this encounter
--- OUTSIDE RECORDS SUMMARY | 2025-01-01 15:43 | XMS_ITS | Clinical Summary ---
Author Organization [facility] Address [address] [place] [address] Care Team Providers Care Business Programmer Name Role Phone Antonio Anton Primary Care Provider [phone] Allergies Active Allergy Reactions Criticality Noted Date [...] (two) times a day. 180 tablet 3 12/29/2024 Active Encounters Date Type Department Care Team Description 12/22/2024 Telephone [facility] Neurology Clinic [address] [place], [place] [phone] David Chau MD PhD 12/22/2024 Orders Only [facility] Neurology Clinic [address] [place], [place] [phone] Provider, MD Orlando 12/08/2024 myChart Message [facility]rology [facility] [address] [place] [phone] David Chau MD PhD Report 12/03/2024 myChart Message [facility] [address] [place] [phone] David Chau MD PhD [employer] 11/19/2024 myChart Message [facility] [address] [place] [phone] David Chau MD PhD [employer] 10/22/2024 9:30 AM EDT Office Visit [facility] Neurology [facility] [address] [place] [phone] David Chau MD PhD Parkinsonism, unspecified Parkinsonism type (HCC) (Primary Dx) 10/21/2024 myChart Message [facility] [address] [place] [phone] David Chau MD PhD Labs 10/06/2024 myChart Message [facility] [address] [place] [id number] David Chau MD PhD Hematology from Last 3 Months Family History Medical [...] Upcoming Encounters Date Type Department Care Team (Tristen st Contact Info) Description 06/10/2025 9:00 AM EDT Office Visit [facility] Neurology Clinic [address] [place], [place] [phone] David Chau MD PhD [address] [place] [address] Health Maintenance Due Date Last Done Comments [...] complete this topic Procedures * Due to [place] state law, this organization might not be sharing negative HIV tests. Procedure Name Priority Date/Time Associated Diagnosis Comments AMB EXTERNAL MRI BRAIN, OUTSIDE RESULT Routine 11/05/2024 9:03 AM EDT from Last 3 Months Results * Due to [place] state law, this organization might not be sharing negative HIV tests. * MRI Brain, Outside Result (11/05/2024 9:03 AM EDT) Anatomical Region Laterality Modality Other us Unknown Provider MD CUNHA EXTERNAL RESULT PROCEDUR ES Final Result from Last 3 Months Insurance [facility] Care Teams Business Programmer Relationship Specialty Start Date End Date Antonio Anton [address] [place] [phone] PCP - General Internal Medicine 03/12/24
== END 2025-01-01 14:07 | disposition home or self-care (01) ==
LOC: HO.HMCC 13:38
PROVIDERS: PCP Internal Medicine; Visit Provider Internal Medicine
DX: I10 Essential (primary) hypertension (principal); E78.9 Disorder of lipoprotein metabolism, unspecified; F22 Delusional disorders; G20.C Parkinsonism, unspecified; R73.01 Impaired fasting glucose; K21.9 Gastro-esophageal reflux disease without esophagitis; R49.0 Dysphonia

== ENCOUNTER → 2025-01-01 13:37 | Outpatient (BNVA) | payer MEDICARE, OTHER, SELFPAY | PROVIDERS: PCP Internal Medicine; Visit Provider Internal Medicine | DX: I10 Essential (primary) hypertension (principal); E78.9 Disorder of lipoprotein metabolism, unspecified; R73.01 Impaired fasting glucose; K21.9 Gastro-esophageal reflux disease without esophagitis; R49.0 Dysphonia; G20.C Parkinsonism, unspecified; F22 Delusional disorders | CPT/HCPCS: 99212 ==